=== PATIENT | female | born 1990 | race Caucasian/White ===

== ENCOUNTER → 2017-12-09 14:01 | Outpatient (CLI) | payer MEDICAID, SELFPAY ==
--- NOTE | 2017-12-09 14:20 | XR_ITS ---
XR chest 2V HISTORY: ITS.REASON: CHEST PAIN ORDERING PHYSICIAN: Naz Rdz PATIENT AGE: 27 years COMPARISON: 07/30/2010 FINDINGS: The cardiomediastinal silhouette and pulmonary vascularity are within normal limits. The lungs are clear without infiltrates, suspicious nodules, or pleural effusions. No acute bony abnormalities. IMPRESSION: Negative chest, no acute finding
[2017-12-09 14:31] LABS: Basophils % 0.3 % (0.1-2.0); Eosinophils # 0.3 K/mm3 (0.0-0.4); Hematocrit 45.6 % (37.0-47.0); Hemoglobin 16.1 g/dL (12.2-16.2); Lymphocytes # 2.3 K/mm3 (0.7-4.5); Lymphocytes % 30.7 K/mm3 (10-50); Mean Corpuscular HGB Conc 35.2 g/dL (31.8-35.4); Mean Corpuscular Hemoglobin 32.4 pg (27.0-31.2); Mean Platelet Volume 7.3 fl (7.4-10.4); Monocytes # 0.3 K/mm3 (0.1-1.0); Monocytes % 3.9 % (1.7-9.3); Neutrophils # 4.5 K/mm3 (1.8-7.8); Neutrophils % 61.1 % (37.0-80.0); Platelet Count 299 K/mm3 (142-424); Red Blood Count 4.96 M/mm3 (4.20-5.40); Red Cell Distribution Width 12.7 % (11.5-17.5); White Blood Count 7.3 K/mm3 (4.8-10.8)
[2017-12-09 14:38] LABS: Troponin I < 0.02 ng/ml (0.00-0.06)
[2017-12-09 14:46] LABS: Alanine Aminotransferase 37 U/L (12-78); Albumin Level 3.8 gm/dL (3.4-5.0); Alkaline Phosphatase 91 U/L (46-116); Anion Gap 10.1 mEq/L (5-15); Aspartate Amino Transferase 14 U/L (15-37); Bilirubin,Total 0.2 mg/dL (0.2-1.0); Blood Urea Nitrogen 13 mg/dL (7-18); Calcium 8.8 mg/dL (8.5-10.1); Carbon Dioxide 28 mmol/L (21.0-32.0); Chloride 106 mmol/L (98-107); Creatinine,Serum 0.72 mg/dL (0.55-1.02); Estimated Glomerular Filt Rate 97 ml/min (>60); Ferritin 52 ng/mL (8-388); Free T4 (Free Thyroxine) 0.72 ng/dl (0.76-1.46); GFR (African American) 118 ML/MIN (>60); Globulin 3.7 gm/dl (1.3-3.2); Glucose 109 mg/dL (74-106); Potassium 4.1 mmoL/L (3.5-5.1); Sodium 140 mmol/L (136-145); Total Protein,Serum 7.5 gm/dL (6.4-8.2)
== END ==
PROVIDERS: Physician Assistant; PCP Nurse Practitioner Family; Visit Provider Nurse Practitioner Family
DX: R07.9 Chest pain, unspecified (principal)
CPT/HCPCS: 36415; 71046; 80053; 82728; 84439; 84443; 84484; 85025

== ENCOUNTER → 2017-12-16 10:06 | Outpatient (CLI) | payer MEDICAID, SELFPAY ==
[2017-12-17 15:48] LABS: LH 13.5 mIU/mL (.)
== END ==
PROVIDERS: Visit Provider Nurse Practitioner Obstetrics & Gynecology
DX: R53.82 Chronic fatigue, unspecified (principal); Z01.419 Encounter for gynecological examination (general) (routine) without abnormal findings; E28.319 Asymptomatic premature menopause
CPT/HCPCS: 36415; 83001; 83002

== ENCOUNTER → 2018-02-10 09:33 | Outpatient (CLI) | payer MEDICAID, SELFPAY ==
--- NOTE | 2018-02-10 09:38 | FL_ITS ---
FL upper GI w air HISTORY: ITS.REASON: EPIGASTRIC PAIN, NAUSEA ORDERING PHYSICIAN: Humera Garcia PATIENT AGE: 28 years Comparison: None FINDINGS: The esophagus, stomach, and duodenum have an unremarkable appearance. There is no evidence of hiatal hernia. No ulcer or mass evident. No mucosal abnormalities apparent. There is normal peristalsis. The duodenal C-loop is nondisplaced. There was mild GE reflux FLUOROSCOPY TIME : 1 minute and 29 seconds. IMPRESSION: Minimal amount of gastroesophageal reflux otherwise negative air-contrast upper GI
== END ==
PROVIDERS: Family Provider Family Medicine; PCP Nurse Practitioner Family; Visit Provider Nurse Practitioner
DX: R10.13 Epigastric pain (principal); R11.0 Nausea
CPT/HCPCS: 74247

== ENCOUNTER → 2018-03-05 11:33 | Outpatient (CLI) | payer MEDICAID, SELFPAY ==
--- NOTE | 2018-03-05 11:37 | XR_ITS ---
EXAM: XR cervical spine 5V HISTORY: ITS.REASON: FREQUENT HEADACHES,STRESS HEADACHES ORDERING PHYSICIAN: Humera Garcia PATIENT AGE: 28 years COMPARISON: None FINDINGS: Normal alignment. No fracture or dislocation. No lytic or blastic change. No significant degenerative change. The disc spaces are preserved. No evidence of cervical rib IMPRESSION: Negative cervical spine
== END ==
PROVIDERS: PCP Nurse Practitioner; Visit Provider Nurse Practitioner
DX: R51 Headache (principal); F45.41 Pain disorder exclusively related to psychological factors
CPT/HCPCS: 72050

== ENCOUNTER → 2018-07-09 08:30 | Outpatient (CLI) | payer MEDICAID, SELFPAY ==
--- NOTE | 2018-07-09 08:31 | US_ITS ---
US transvaginal HISTORY: Endometriosis, pelvic pain ITS.REASON: US T/V- Pelvic Pain ORDERING PHYSICIAN: Isaiah Aguilera MD PATIENT AGE: 28 years Comparison: 02/27/2016 FINDINGS: Status post hysterectomy. Vaginal stump has an unremarkable appearance. No pelvic mass or abnormal fluid collection Right ovary is 2.7 x 1.8 cm and has an unremarkable appearance. The left ovary is 4.4 x 1.6 cm and contains a small 9 mm follicle. The right ovary is 3 x 1.8 x 1.9 cm and contains small follicles. No dominant cyst is evident. IMPRESSION: Prior hysterectomy. Small bilateral ovarian follicles, no dominant cyst or adnexal mass apparent
== END ==
PROVIDERS: Family Provider Family Medicine; PCP Nurse Practitioner; Visit Provider Nurse Practitioner Obstetrics & Gynecology
DX: R10.2 Pelvic and perineal pain (principal)
CPT/HCPCS: 76830

== ENCOUNTER → 2018-07-13 09:05 | Outpatient (CLI) | payer MEDICAID, SELFPAY ==
--- NOTE | 2018-07-13 09:10 | MR_ITS ---
MR head/brain wo con HISTORY: Headache and nausea, dizziness, blurred vision ITS.REASON: NAUSEA, PERSISTANT HEADACHE ORDERING PHYSICIAN: Naz Rdz PATIENT AGE: 28 years Comparison: None TECHNIQUE: Standard multiplanar multiecho sequences are performed without contrast. FINDINGS: No midline shift, mass effect, intracranial hemorrhage, or hydrocephalus. No evidence of acute infarction. The cerebellopontine angles, cerebellum, and brainstem are unremarkable. There is a partial empty sella turcica as a variant of normal. There is normal johnson-white matter differentiation with no abnormal T2 white matter hyperintensities evident. The hippocampal gyri are unremarkable in the temporal horns are symmetric. The craniocervical junction and upper cervical cord have an unremarkable appearance. No large aneurysms are evident. There is minimal mucosal thickening of the left maxillary sinus. No sinus air-fluid level or mastoid effusion evident. IMPRESSION: Negative MRI of the brain without contrast
== END ==
PROVIDERS: Family Provider Family Medicine; PCP Nurse Practitioner; Visit Provider Nurse Practitioner Family
DX: G44.52 New daily persistent headache (NDPH) (principal); R11.0 Nausea
CPT/HCPCS: 70551

== ENCOUNTER → 2018-11-10 17:48 | Outpatient (CLI) | payer MEDICAID, SELFPAY ==
[2018-11-10 17:51] LABS: Adenovirus F 40/41, stool Not Detected (NotDetected); Astrovirus Not Detected (NotDetected); Campylobacter Not Detected (NotDetected); Clostridium Difficile A/B, PCR Not Detected (NotDetected); Cryptosporidium Not Detected (NotDetected); Cyclospora Cayetanesis Not Detected (NotDetected); Entamoeba histolytica Not Detected (NotDetected); Enteroaggregative E coli Not Detected (NotDetected); Enteropathogenic E coli Not Detected (NotDetected); Enterotoxigenic E coli Not Detected (NotDetected); Giardia lamblia Not Detected (NotDetected); Norovirus Not Detected (NotDetected); Plesimonas Shigalloides, PCR Not Detected (NotDetected); Rotavirus A Not Detected (NotDetected); Salmonella, PCR Not Detected (NotDetected); Sapovirus Not Detected (NotDetected); Shiga-like toxin E coli Not Detected (NotDetected); Shigella Enterovasive E coli Not Detected (NotDetected); Vibrio Cholerae Not Detected (NotDetected); Vibrio, PCR Not Detected (NotDetected); Yersinia Entercolitica, PCR Not Detected (NotDetected)
== END ==
PROVIDERS: Visit Provider Nurse Practitioner Family
DX: R10.9 Unspecified abdominal pain (principal); R19.7 Diarrhea, unspecified
CPT/HCPCS: 87507

== ENCOUNTER → 2019-04-02 10:13 | Outpatient (CLI) | payer MEDICAID, SELFPAY ==
--- NOTE | 2019-04-02 10:21 | XR_ITS ---
EXAM: XR thoracic spine 3V HISTORY: ITS.REASON: LT SIDED THORACIC PAIN Comparison: 58 (08/22/2018 FINDINGS: Normal alignment. No fracture or dislocation. No lytic or blastic change. No significant degenerative change. The disc spaces are preserved. IMPRESSION: No acute finding
--- NOTE | 2019-04-02 10:21 | XR_ITS ---
EXAM: XR lumbar spine min 4V HISTORY: ITS.REASON: BACK PAIN ORDERING PHYSICIAN: Naz Rdz APRN PATIENT AGE: 29 years COMPARISON: CT scan abdomen and pelvis 09/10/2018 FINDINGS: There is mild straightening of normal lordotic curvature suggesting mild muscle spasm. All lumbar vertebrae appear intact and disc spaces are well maintained throughout. There is no pars defect. There are mild hypertrophic facet changes at the L5 S1 level. The SI joints appear normal. IMPRESSION: Possible mild muscle spasm, mild facet changes L5-S1 level as noted
== END ==
PROVIDERS: PCP Nurse Practitioner Family; Visit Provider Nurse Practitioner Family
DX: M54.6 Pain in thoracic spine (principal); M54.40 Lumbago with sciatica, unspecified side
CPT/HCPCS: 72072; 72110

== ENCOUNTER → 2019-05-28 13:50 | Outpatient (CLI) | payer MEDICAID, SELFPAY ==
--- NOTE | 2019-05-28 13:52 | MR_ITS ---
PROCEDURE: MR LUMBAR SPINE WO CON CLINICAL INDICATION: BACK PAIN OF LUMBAR REGION W/SCIATICA Low back pain with bilateral leg pain numbness and tingling COMPARISON: Lumbar spine films of 04/02/2019 TECHNIQUE: Standard multiplanar multiecho sequences are performed without contrast. 3-D MIP and myelographic images are also rendered and reviewed FINDINGS: There is normal alignment. The spinal cord ends at the L1 level. T12-L1, L1-L2, L2-L3, and L3-L4 have an unremarkable appearance. There is mild facet and ligamentum hypertrophy at L4-5 and L5-S1. No canal stenosis or extruded herniated disc is evident. Minimal bulging disc at L4-5. there is straightening of the lumbar lordosis which could be due to patient positioning or muscle spasm IMPRESSION: 1. Minimal bulging disc along with mild facet ligamentum hypertrophy at L4-5 with mild facet ligamentum hypertrophy at L5-S1. 2. No canal stenosis or extruded herniated disc evident. Dictated by: Epifanio Tomas MD 05/30/2019 12:31 Electronically signed by Epifanio Tomas MD in [place] 05/30/2019 12:31
== END ==
PROVIDERS: PCP Nurse Practitioner Family; Visit Provider Nurse Practitioner Family
DX: M54.40 Lumbago with sciatica, unspecified side (principal)
CPT/HCPCS: 72148; 76376

== ENCOUNTER → 2019-10-19 15:50 | Outpatient (CLI) | payer OTHER, SELFPAY ==
[2019-10-19 16:08] LABS: Basophils # 0.1 K/mm3 (0-0.2); Basophils % 0.6 % (0.1-2.0); Eosinophils # 0.2 K/mm3 (0.0-0.4); Eosinophils % 1.9 % (0.1-12.0); Hematocrit 43.1 % (37.0-47.0); Hemoglobin 14.9 g/dL (12.2-16.2); Lymphocytes # 2.2 K/mm3 (0.7-4.5); Mean Corpuscular HGB Conc 34.5 g/dL (31.8-35.4); Mean Corpuscular Hemoglobin 31.2 pg (27.0-31.2); Mean Corpuscular Volume 90.3 fl (81-99); Mean Platelet Volume 7.6 fl (7.4-10.4); Monocytes # 0.3 K/mm3 (0.1-1.0); Monocytes % 4.4 % (1.7-9.3); Neutrophils # 5.1 K/mm3 (1.8-7.8); Neutrophils % 65.2 % (37.0-80.0); Platelet Count 317 K/mm3 (142-424); Red Blood Count 4.77 M/mm3 (4.20-5.40); Red Cell Distribution Width 13.2 % (11.5-17.5); White Blood Count 7.9 K/mm3 (4.8-10.8)
--- NOTE | 2019-10-19 16:13 | ECG_ITS ---
APPROVED REPORT Exam: Resting ECG HR:68 bpm ECG Measurements Heart Rate 68 AXES OR 162 P 34 QRSd 86 QRS 57 QT 412 T 29 QTc 438 <Conclusion> Normal sinus rhythm late r wave progression - unchanged Abnormal ECG Electronically signed by : Sonido Lacy, 10/19/2019 16:40:22
[2019-10-19 17:19] LABS: Thyroid Stimulating Hormone 4.51 uIU/ml (0.358-3.740)
== END ==
PROVIDERS: PCP Family Medicine; Visit Provider Otolaryngology
DX: Z01.818 Encounter for other preprocedural examination (principal); E03.9 Hypothyroidism, unspecified; J34.2 Deviated nasal septum
CPT/HCPCS: 36415; 84439; 84443; 85025; 93005

== ENCOUNTER → 2019-10-25 11:04 | Outpatient (CLI) | payer OTHER, SELFPAY ==
--- NOTE | 2019-10-25 11:04 | US_ITS ---
PROCEDURE: US THYROID CLINICAL INDICATION: HYPOTHYROIDISM COMPARISON: No exams were available for comparison FINDINGS: Right lobe: The right lobe is 4.2 x 1.1 x 1.5 cm. No discrete nodule. Left lobe: The left lobe is 3.7 x 1 x 1.5 cm. No discrete nodule Isthmus: Unremarkable Additional findings: IMPRESSION: Unremarkable thyroid ultrasound Dictated by: Epifanio Tomas MD 10/25/2019 17:22 Electronically signed by Epifanio Tomas MD in [place] 10/25/2019 17:22
== END ==
PROVIDERS: PCP Family Medicine; Visit Provider Otolaryngology
DX: E03.9 Hypothyroidism, unspecified (principal)
CPT/HCPCS: 76536

== ENCOUNTER → 2020-02-25 14:34 | Outpatient (CLI) | payer OTHER, SELFPAY ==
--- NOTE | 2020-02-25 14:42 | XR_ITS ---
PROCEDURE: XR ANKLE RT MIN 3V CLINICAL INDICATION: RT ANKLE MASS COMPARISON: No exams were available for comparison FINDINGS: No fracture or dislocation. No lytic or blastic change. There is normal mineralization. The joint spaces are well-preserved. No significant degenerative/arthritic changes. No erosive changes evident. Other findings:No abnormal soft tissue calcification. IMPRESSION: No acute findings. MRI may provide further evaluation for possible soft tissue mass Dictated by: Epifanio Tomas MD 02/25/2020 14:57 Electronically signed by Epifanio Tomas MD in [place] 02/25/2020 14:57
== END ==
PROVIDERS: PCP Nurse Practitioner Family; Visit Provider Nurse Practitioner Family
DX: R22.41 Localized swelling, mass and lump, right lower limb (principal)
CPT/HCPCS: 73610

== ENCOUNTER → 2020-03-09 13:24 | Outpatient (CLI) | payer OTHER, SELFPAY ==
--- NOTE | 2020-03-09 13:28 | MR_ITS ---
PROCEDURE: MR ANKLE RT WO CON CLINICAL INDICATION: MASS OF RIGHT ANKLE Knot on anterior surface of ankle COMPARISON: XR ANKLE RT MIN 3V from 02/25/2020 TECHNIQUE: Routine multiplanar multi echo sequences are performed without gadolinium enhancement. FINDINGS: A marker is placed to denote the area of palpable concern.. This is placed along the anterior medial aspect of the ankle. Just deep to this region is a prominent vein with some low level increased T1 and increased T2 signal. There is also mild prominence of the subcutaneous fat at this region. No bony protuberance or bony mass or soft tissue mass is evident. No abnormal fluid collection. No ganglion cyst. There is a small amount of fluid in the talonavicular joint space and the ankle joint space nonspecific. No obvious tendinous or ligamentous abnormalities. There is a small amount of subcutaneous fluid along the lateral aspect of the ankle. The Achilles tendon flexor tendons and extensor tendons have an unremarkable appearance peroneal tendons and posterior tibialis is unremarkable. No bone marrow edema. IMPRESSION: Mild prominence of the adipose tissue just deep to the placed marker denoting the area of palpable concern. There is also a mildly prominent subcutaneous vein at this area. There is some altered signal intensity within the vein. Cannot exclude the possibility of a venous thrombosis at this region. Ultrasound with Doppler imaging may provide further evaluation to exclude underlying venous thrombosis along the dorsal medial aspect of the ankle and foot. Otherwise negative Dictated by: Epifanio Tomas MD 03/11/2020 08:00 Electronically signed by Epifanio Tomas MD in [place] 03/11/2020 08:00
== END ==
PROVIDERS: PCP Nurse Practitioner Family; Visit Provider Nurse Practitioner Family
DX: R22.41 Localized swelling, mass and lump, right lower limb (principal)
CPT/HCPCS: 73721

== ENCOUNTER → 2020-03-14 14:00 | Outpatient (CLI) | payer OTHER, SELFPAY ==
--- NOTE | 2020-03-14 14:03 | CA_ITS ---
APPROVED REPORT Right Lower Extremity Venous Study for DVT. Brazing Furnace Operator: DORON Indications Lower Extremity Swelling: Right POSSIBLE THROMBUS SEEN ANT-MED ASPECT OF RIGHT ANKLE PER MRI Vein Imaging CFV (R): compressive, spontaneous, phasic, augmentation SFJ (R): compressive, spontaneous, phasic, augmentation FEM (R): compressive, spontaneous, phasic, augmentation POP (R): compressive, spontaneous, phasic, augmentation DFV (R): compressive, spontaneous, phasic, augmentation PTV (R): Compressible GSV (R): Compressible Peroneals (R):Compressible GAS (R): Compressible Findings No evidence of DVT right lower extremity there is a superficial thrombus seen in the area of concern on MRI in a subcutaneous vein anterior medial aspect of ankle. Conclusion No evidence of DVT right lower extremity there is a superficial thrombus seen in the area of concern on MRI in a subcutaneous vein anterior medial aspect of ankle. Electronically signed by : Tremayne Fontana, 03/16/2020 09:19:48
== END ==
PROVIDERS: PCP Nurse Practitioner Family; Visit Provider Nurse Practitioner Family
DX: R93.89 Abnormal findings on diagnostic imaging of other specified body structures (principal)
CPT/HCPCS: 93971

== ENCOUNTER → 2020-05-08 15:38 | Outpatient (CLI) | payer OTHER, SELFPAY | PROVIDERS: PCP Nurse Practitioner Family; Visit Provider Nurse Practitioner Family | DX: Z20.828 Contact with and (suspected) exposure to other viral communicable diseases (principal); U07.1 COVID-19 | CPT/HCPCS: U0003 ==

== ENCOUNTER → 2020-06-19 13:39 | Outpatient (CLI) | payer OTHER, SELFPAY ==
--- NOTE | 2020-06-19 14:21 | XR_ITS ---
PROCEDURE: XR ANKLE RT MIN 3V CLINICAL INDICATION: ABN MRI COMPARISON: No exams were available for comparison FINDINGS: No fracture or dislocation. No lytic or blastic change. There is normal mineralization. The joint spaces are well-preserved. No significant degenerative/arthritic changes. No erosive changes evident. Other findings:None. IMPRESSION: No acute findings. Dictated by: Epifanio Tomas MD 06/19/2020 15:17 Epifanio Tomas MD in [place] 06/19/2020 15:18
--- NOTE | 2020-06-19 14:22 | XR_ITS ---
PROCEDURE: XR CHEST 2V CLINICAL HISTORY: HX OF ASTHMA, PREOPERATIVE COMPARISON: DX CXR2V XR chest 2V from 12/09/2017 CR CXR2V XR chest 2V from 08/22/2018 FINDINGS: The cardiomediastinal silhouette and pulmonary vascularity are within normal limits. The lungs are clear without infiltrates, suspicious nodules, or pleural effusions. No acute bony abnormalities. IMPRESSION: No acute findings. Dictated by: Epifanio Tomas MD 06/19/2020 15:16 Epifanio Tomas MD in [place] 06/19/2020 15:16
[2020-06-19 14:55] LABS: Basophils % 0.7 % (0.1-2.0); Eosinophils # 0.1 K/mm3 (0.0-0.4); Eosinophils % 2.4 % (0.1-12.0); Hematocrit 45.7 % (37.0-47.0); Hemoglobin 15.4 g/dL (12.2-16.2); Lymphocytes # 1.8 K/mm3 (0.7-4.5); Lymphocytes % 33.3 % (10-50); Mean Corpuscular HGB Conc 33.8 g/dL (31.8-35.4); Mean Corpuscular Volume 94.8 fl (81-99); Mean Platelet Volume 6.9 fl (7.4-10.4); Monocytes # 0.2 K/mm3 (0.1-1.0); Monocytes % 4.3 % (1.7-9.3); Neutrophils # 3.3 K/mm3 (1.8-7.8); Neutrophils % 59.4 % (37.0-80.0); Platelet Count 291 K/mm3 (142-424); Red Blood Count 4.82 M/mm3 (4.20-5.40); Red Cell Distribution Width 12.7 % (11.5-17.5); White Blood Count 5.5 K/mm3 (4.8-10.8)
--- NOTE | 2020-06-19 15:20 | ECG_ITS ---
APPROVED REPORT Exam: Resting ECG HR:59 bpm ECG Measurements Heart Rate 59 AXES SD 146 P 30 QRSd 84 QRS 44 QT 422 T 39 QTc 417 <Conclusion> Sinus bradycardia with sinus arrhythmia Late R-wave progression, unchanged from prior Abnormal ECG Electronically signed by : Sonido Lacy, 06/19/2020 15:37:56
[2020-06-19 15:34] LABS: Chloride 102 mmol/L (98-107)
[2020-06-19 15:35] LABS: Potassium 4.2 mmoL/L (3.5-5.1); Sodium 141 mmol/L (136-145)
[2020-06-19 15:37] LABS: Blood Urea Nitrogen 10 mg/dl (7-17); Estimated Glomerular Filt Rate 84 ml/min (>60); GFR (African American) 102 ML/MIN (>60)
[2020-06-19 15:38] LABS: Anion Gap 13.2 mEq/L (5-15); Calcium 9.9 mg/dl (8.4-10.2); Carbon Dioxide 30 mmol/L (22.0-30.0); Glucose 80 mg/dl (74-100); HCG Qualitative, Serum Negative (Negative)
[2020-06-19 16:09] LABS: Coronavirus 19 IgM Antibody Negative (Negative)
[2020-06-19 16:10] LABS: Coronavirus 19 IgG Antibody Positive (Negative)
== END ==
PROVIDERS: Podiatrist; PCP Family Medicine; Visit Provider Nurse Practitioner Family
DX: Z20.828 Contact with and (suspected) exposure to other viral communicable diseases (principal); U07.1 COVID-19; Z01.89 Encounter for other specified special examinations; R93.89 Abnormal findings on diagnostic imaging of other specified body structures; R22.41 Localized swelling, mass and lump, right lower limb; M79.89 Other specified soft tissue disorders
CPT/HCPCS: 36415; 71046; 73610; 80048; 84703; 85025; 86328; 93005

== ENCOUNTER 2020-06-21 07:34 | Day surgery (SDC) | payer OTHER, SELFPAY ==
[2020-06-20 10:33] VITALS: BMI 37.9
[2020-06-21] VITALS (14 sets, daily range): BP systolic 114–133; BP diastolic 68–79; PULSE 76–98; RESP 16–18; TEMP 36.2–43; O2SAT 92–98
--- NOTE | 2020-06-21 08:16 | HMH.ANESCL ---
[facility] Anesthesia Checklist - Patient Identification Patient Identification: Arm Band, Verbal (Name & ) - Structural Data Admitted From: Home Planned Operative Procedure/s: Right ankle excision of soft tissue mass, synovectomy Consent for Planned Operative Procedure(s) Verified: Yes Verified Documents: Surgical Consent, History and Physical - NPO Status Verified Time NPO: 20:00 - Chart Verification Results Verified: CBC, BMP, HCG - Additional verifications Patient : No Anesthesia Reactions: No Hx Blood Transfusions: Yes Blood Transfusion Reaction: No - Airway Assessment C-Spine Mobility Assessed: Yes (Missing teeth, full neck ROM, MP 3, TMD 3) TMJ Mobility Assessed: Yes Dentition: Good Dentition - Neurological Assessment Level of Consciousness: Awake, Alert, Appropriate, Follows Commands Hx Seizures: No Numbness or tingling in extremities: No - Anesthesia Plan Anesthesia Risk discussed: Yes Anesthesia Plan: Verified ASA Class: II Anesthesia Type: General w/block [facility] History I have reviewed the patient's past medical history: Yes 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: Reports:: Gastroesophageal Reflux Disease(GERD), Migraine Denies:: Cancer, Diabetes Mellitus Type 1, Diabetes Mellitus Type 2, Internal Pacemaker, MRSA, Seizures *Have you ever received a pneumonia vaccine?: No *Have you received a flu vaccine this season?: No Other 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: Reports: Hypothyroidism, Sinus Problems. Denies: Blood Transfusion Reaction Comment:: Obesity Anesthesia experience/problems:: No prior complications Laterality Cases: Bilateral: Tonsillectomy Other Surgeries: Yes: Cholecystectomy, Dilation and Curettage, Hysterectomy-Partial, Sinus Surgery, Tubal Ligation, Other (Exploratory Lap). 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
--- NOTE | 2020-06-21 10:30 | XR_ITS ---
PROCEDURE: XR ANKLE RT MIN 3V CLINICAL INDICATION: post op ankle Follow-up surgery COMPARISON: CR XR ANKLE RT MIN 3V from 02/25/2020 CR XR ANKLE RT MIN 3V from 06/19/2020 FINDINGS: Postsurgical gas present along the medial and lateral aspect of the ankle. Normal bony alignment. No fracture dislocation or metallic radiopaque foreign body. IMPRESSION: Postsurgical gas otherwise negative Dictated by: Epifanio Tomas MD 06/21/2020 14:29 Epifanio Tomas MD in [place] 06/21/2020 14:29
--- NOTE | 2020-06-21 10:52 | P.PN_ITS ---
[facility] Anesthesia Record Part I Intake, IV Amount: 700 Estimated blood loss (mL): 5 Urine output (mL): 0 Blood Pressure: 130/79 SaO2: 94 Pulse Rate: 90 Respiratory Rate: 16 Temperature: 98.5 F Patient is:: Drowsy, Stable Stable to PACU at:: 10:50
--- NOTE | 2020-06-21 10:58 | HMH.OPNOTE ---
Date of procedure: 06/21/20 Pre-op Diagnosis:: 1. Right medial ankle soft tissue mass 2. Right lateral ankle soft tissue mass 3. Right ankle synovitis Post-op Diagnosis:: Same Procedure performed:: 1. Right medial ankle soft tissue mass excision 2. Right lateral ankle soft tissue mass excision 3. Right ankle synovectomy 4. Application of amniotic graft tissue Surgeon:: Ana Paula Rosado DPM Anesthesia: GETA, regional (Right popliteal nerve block) Estimated blood loss (mL): 20 Clinical Note:: Right Ankle Soft Tissue Mass Pre-op: Conservative treatment included ice, elevation, NSAIDs, strapping, taping, modification of shoe gear, and aspiration. Conservative treatment discussed but has been exhausted. We discussed surgery. All risks and benefits were discussed including but not limited to: recurrence of the mass, damage to blood vessels and nerves, bleeding, infection, wound complications, need for further surgery, prolonged swelling of the extremity, prolonged pain, RSD/CRPS, DVT, and anesthetic complications. No guarantees were given. All questions fully answered. The patient verbalized understanding and agreed to proceed with surgery. Consent was obtained. Necessary labs and pre-op testing ordered: cbc, cmp, ekg, chest xray. Pt was given a e-Rx for [place] 7.5/325, Zofran, Motrin. She will need a fracture boot and crutches on the DOS. Discussed DVT/PE. Patient is obese and will be immobilized, otherwise is low risk. Discussed the use of aspirin 81 mg postoperatively. PCP is Naz Bahena. Operative findings:: Soft tissue mass noted to both the medial and lateral right ankle. The right ankle had an outpouching over the sinus tarsi and lateral ankle which was basically composed of subcutaneous tissue, suspect lipoma. There was some scar tissue and synovitis in the ankle joint. No obvious cartilage defects noted to the ankle. No signs of infection. Operative note:: On this date and time, the patient was deemed an appropriate surgical candidate. With informed consent signed, the patient was taken to the operating theater after a pre-op regional popliteal nerve block was given by anesthesia. The patient was positioned supine. General anesthesia was induced. Tourniquet was applied to the right thigh. The right lower extremity was prepped and draped in normal sterile fashion. RIGHT EXCISION OF ANKLE SOFT TISSUE MASS x2: The tourniquet was not inflated. Attention was directed to the lateral and medial aspect of the incision ankle where a linear incisions were mapped out. Dissection was carried through skin to subcutaneous tissue with care taken to maintain surgical hemostasis and safely retract neurovascular structures. The medial ankle arthrotomy incision was dissected, subcutaneous mass noted about 1 x 1.5 cm. It was resected in total and sent to pathology as a specimen. Attention was directed to the lateral ankle where the incision was extended from the lateral ankle gutter down over the sinus tarsi. A small soft tissue mass was noted over the extensor tendon sheath. It was sharply dissected. Attention was directed over the sinus tarsi where there is an outpouching of subcutaneous fat suspected lipoma. It was transected and the 2 lateral masses were sent together to pathology as a specimen. No deep signs of infection. Wounds were irrigated. RIGHT ANKLE SYNOVECTOMY, APPLICATION OF AMNIOTIC GRAFT TISSUE: Next dissection was carried down to the level of the joint. Synovitic tissue noted within the ankle joint. It was sharply debrided. No evidence of osteochondral defect or obvious cartilage damage noted. The ankle was flushed with copious amounts of sterile saline. A piece of amniotic tissue was cut in half and applied over the exposed extensor tendon prior to repairing the sheath. Deep tissue reapproximated with 2 and 3-0 Vicryl in a running fashion. A piece of the graft was cut and inserted to the medial and lateral ankle incisions prior to skin closure. S
--- NOTE | 2020-06-21 11:33 | SUR.PHASEI ---
1100- ice pack placed behind right knee. 1105- pain in right knee #6 (1-10) medicated per order-morphine 2mg 1125- pt continues to rate pain #6, also c/o nausea. medicated with morphine 2mg and zofran 4mg IV 1134- pt verbalized pain decreased to #2 and nausea improved
--- NOTE | 2020-06-21 12:38 | P.PN_ITS ---
[facility] Anesthesia Record Part II Discharge Time: 11:20 Destination: [facility] PACU nurse assessment reviewed?: Yes Patient Condition:: Good Anesthesia Complications:: None Swallowing reflex intact?: Yes Cyanosis?: No Blood Pressure: 122/71 Pulse Rate: 86 Temperature: 97.1 F Mental Status: Alert & Oriented Pain level:: 2 Nausea and/or vomitting:: None Intake, IV Amount: 1,000
== END 2020-06-21 12:27 | disposition home or self-care (01) ==
LOC: OR 07:35
PROVIDERS: PCP Family Medicine; Visit Provider Podiatrist
PROC: (CPT 28039; principal; 2020-06-21 09:00)
DX: D21.21 Benign neoplasm of connective and other soft tissue of right lower limb, including hip (principal); M65.871 Other synovitis and tenosynovitis, right ankle and foot; D36.7 Benign neoplasm of other specified sites; D23.71 Other benign neoplasm of skin of right lower limb, including hip
CPT/HCPCS: 28039; 28043; 27625; C5275; 73610; 96374; J2405; Q4211

== ENCOUNTER → 2020-07-06 15:01 | Outpatient (CLI) | payer OTHER, SELFPAY ==
--- NOTE | 2020-07-06 15:03 | CA_ITS ---
APPROVED REPORT Bilateral Lower Extremity Venous Study for Coffee Taster: Mulu Wing EILEEN Indications Lower Extremity Pain: Right Pain of right calf, s/p foot surgery Vein Imaging CFV (R): compressive, spontaneous, phasic, augmentation SFJ (R): compressive, spontaneous, phasic, augmentation FEM (R): compressive, spontaneous, phasic, augmentation POP (R): compressive, spontaneous, phasic, augmentation PTV (R): Compressible GSV (R): Compressible Peroneals (R):Compressible GAS (R): Compressible Findings No evidence of DVT or superficial thrombophlebitis in the veins scanned of the right lower extremity. Conclusion No evidence of DVT or superficial thrombophlebitis in the veins scanned of the right lower extremity. Electronically signed by : Epifanio Tomas MD 07/07/2020 17:04:43
== END ==
PROVIDERS: PCP Family Medicine; Visit Provider Podiatrist
DX: M79.661 Pain in right lower leg (principal); Z98.890 Other specified postprocedural states
CPT/HCPCS: 93971

== ENCOUNTER → 2020-08-01 12:51 | Outpatient (CLI) | payer OTHER, SELFPAY ==
--- NOTE | 2020-08-01 13:02 | XR_ITS ---
PROCEDURE: XR FOOT WT BEARING RT 3V CLINICAL INDICATION: pain COMPARISON: No exams were available for comparison FINDINGS: No fracture or dislocation. No lytic or blastic change. There is normal mineralization. The joint spaces are well-preserved. No significant degenerative/arthritic changes. No erosive changes evident. Other findings:Borderline pes planus IMPRESSION: Borderline pes planus otherwise negative Dictated by: Epifanio Tomas MD 08/01/2020 17:07 Epifanio Tomas MD in [place] 08/01/2020 17:07
== END ==
PROVIDERS: PCP Family Medicine; Visit Provider Podiatrist
DX: M79.671 Pain in right foot (principal)
CPT/HCPCS: 73630

== ENCOUNTER → 2020-08-07 15:45 | Outpatient (CLI) | payer OTHER, SELFPAY ==
[2020-08-07 16:11] LABS: Basophils # 0.1 K/mm3 (0-0.2); Basophils % 0.6 % (0.1-2.0); Eosinophils # 0.3 K/mm3 (0.0-0.4); Eosinophils % 3.6 % (0.1-12.0); Hematocrit 45.6 % (37.0-47.0); Hemoglobin 15.9 g/dL (12.2-16.2); Lymphocytes # 2.3 K/mm3 (0.7-4.5); Lymphocytes % 27.9 % (10-50); Mean Corpuscular HGB Conc 34.8 g/dL (31.8-35.4); Mean Corpuscular Hemoglobin 32.6 pg (27.0-31.2); Mean Corpuscular Volume 93.4 fl (81-99); Mean Platelet Volume 7.7 fl (7.4-10.4); Monocytes # 0.4 K/mm3 (0.1-1.0); Monocytes % 4.3 % (1.7-9.3); Neutrophils # 5.2 K/mm3 (1.8-7.8); Neutrophils % 63.5 % (37.0-80.0); Platelet Count 345 K/mm3 (142-424); Red Blood Count 4.88 M/mm3 (4.20-5.40); Red Cell Distribution Width 12.8 % (11.5-17.5); White Blood Count 8.1 K/mm3 (4.8-10.8)
[2020-08-07 16:55] LABS: Alanine Aminotransferase 37 U/L (12-78); Albumin Level 4.5 g/dl (3.5-5.0); Albumin/Globulin Ratio 1.6 (1.1-1.8); Alkaline Phosphatase 95 U/L (38-126); Anion Gap 14.4 mEq/L (5-15); Aspartate Amino Transferase 27 U/L (14-36); Bilirubin,Total 0.5 mg/dl (0.2-1.3); Blood Urea Nitrogen 13 mg/dl (7-17); Calcium 10.2 mg/dl (8.4-10.2); Carbon Dioxide 26 mmol/L (22.0-30.0); Chloride 104 mmol/L (98-107); Erythrocyte Sedimentation Rate 19 mm/hr (0-20); Estimated Glomerular Filt Rate 84 ml/min (>60); GFR (African American) 102 ML/MIN (>60); Globulin 2.8 g/dL (1.3-3.2); Glucose 87 mg/dl (74-100); Potassium 4.4 mmoL/L (3.5-5.1); Sodium 140 mmol/L (136-145); Total Protein,Serum 7.3 g/dl (6.3-8.2)
[2020-08-07 17:00] LABS: C-Reactive Protein 4.1 mg/L (0-4)
== END ==
PROVIDERS: Visit Provider Nurse Practitioner
DX: D17.23 Benign lipomatous neoplasm of skin and subcutaneous tissue of right leg (principal); T14.8XXA Other injury of unspecified body region, initial encounter
CPT/HCPCS: 36415; 80053; 85025; 85651; 86140

== ENCOUNTER → 2020-10-12 10:52 | Outpatient (CLI) | payer OTHER, SELFPAY ==
[2020-10-12 11:32] LABS: Basophils # 0.1 K/mm3 (0-0.2); Basophils % 0.8 % (0.1-2.0); Eosinophils # 0.2 K/mm3 (0.0-0.4); Eosinophils % 2.8 % (0.1-12.0); Hematocrit 44.9 % (37.0-47.0); Hemoglobin 16.1 g/dL (12.2-16.2); Lymphocytes # 2.3 K/mm3 (0.7-4.5); Lymphocytes % 30.5 % (10-50); Mean Corpuscular HGB Conc 35.9 g/dL (31.8-35.4); Mean Corpuscular Hemoglobin 32.7 pg (27.0-31.2); Mean Corpuscular Volume 91.2 fl (81-99); Mean Platelet Volume 7.6 fl (7.4-10.4); Monocytes # 0.4 K/mm3 (0.1-1.0); Monocytes % 5.7 % (1.7-9.3); Neutrophils # 4.6 K/mm3 (1.8-7.8); Neutrophils % 60.2 % (37.0-80.0); Platelet Count 327 K/mm3 (142-424); Red Blood Count 4.93 M/mm3 (4.20-5.40); Red Cell Distribution Width 12.8 % (11.5-17.5); White Blood Count 7.6 K/mm3 (4.8-10.8)
[2020-10-12 12:06] LABS: Free Thyroxine Index 2.9 ug/dL (5.93-13.13); Triiodothryronine (T3) Uptake 32 % (23.5-40.5)
[2020-10-12 12:19] LABS: Thyroid Stimulating Hormone 2.87 uIU/mL (0.465-4.68)
== END ==
PROVIDERS: Visit Provider Nurse Practitioner Obstetrics & Gynecology
DX: Z01.419 Encounter for gynecological examination (general) (routine) without abnormal findings (principal); E03.9 Hypothyroidism, unspecified
CPT/HCPCS: 36415; 84436; 84443; 84479; 85025

== ENCOUNTER → 2020-10-17 11:42 | Outpatient (CLI) | payer OTHER, SELFPAY ==
[2020-10-17 13:00] LABS: Basophils # 0.1 K/mm3 (0-0.2); Basophils % 0.7 % (0.1-2.0); Eosinophils # 0.2 K/mm3 (0.0-0.4); Eosinophils % 2.7 % (0.1-12.0); Hematocrit 46.4 % (37.0-47.0); Hemoglobin 16.2 g/dL (12.2-16.2); Lymphocytes # 2.2 K/mm3 (0.7-4.5); Lymphocytes % 30.4 % (10-50); Mean Corpuscular Volume 91.4 fl (81-99); Mean Platelet Volume 7.5 fl (7.4-10.4); Monocytes # 0.3 K/mm3 (0.1-1.0); Monocytes % 4.6 % (1.7-9.3); Neutrophils # 4.4 K/mm3 (1.8-7.8); Neutrophils % 61.6 % (37.0-80.0); Platelet Count 329 K/mm3 (142-424); Red Blood Count 5.08 M/mm3 (4.20-5.40); Red Cell Distribution Width 13.2 % (11.5-17.5); White Blood Count 7.2 K/mm3 (4.8-10.8)
[2020-10-17 13:39] LABS: Chloride 102 mmol/L (98-107); Sodium 140 mmol/L (136-145)
[2020-10-17 13:41] LABS: Blood Urea Nitrogen 18 mg/dl (7-17); Estimated Glomerular Filt Rate 74 ml/min (>60); GFR (African American) 89 ML/MIN (>60)
[2020-10-17 13:42] LABS: Alanine Aminotransferase 50 U/L (12-78); Albumin Level 4.9 g/dl (3.5-5.0); Albumin/Globulin Ratio 1.5 (1.1-1.8); Alkaline Phosphatase 91 U/L (38-126); Aspartate Amino Transferase 37 U/L (14-36); Bilirubin,Total 0.6 mg/dl (0.2-1.3); Calcium 10.4 mg/dl (8.4-10.2); Carbon Dioxide 28 mmol/L (22.0-30.0); Cholesterol 227 mg/dl (140-200); Globulin 3.2 g/dL (1.3-3.2); Glucose 85 mg/dl (74-100); Magnesium 1.9 mg/dl (1.6-2.3); Total Protein,Serum 8.1 g/dl (6.3-8.2); Triglycerides 187 mg/dl (30-150); VLDL Cholesterol 37 mg/dL (0-40)
[2020-10-17 13:43] LABS: Chol/HDL Ratio 4.4 (1-3.5); HDL Cholesterol 52 mg/dl (40-60)
[2020-10-17 13:54] LABS: Direct LDL Cholesterol 137.29 mg/dL (100-129)
== END ==
PROVIDERS: PCP Nurse Practitioner Family; Visit Provider Nurse Practitioner Family
DX: R00.2 Palpitations (principal)
CPT/HCPCS: 36415; 80053; 80061; 83735; 85025; 93225; 93226

== ENCOUNTER → 2020-10-17 12:03 | Outpatient (CLI) | payer OTHER, SELFPAY | PROVIDERS: Visit Provider Nurse Practitioner Family | DX: R00.2 Palpitations (principal) | CPT/HCPCS: 36415; 80053; 80061; 83735; 85025 ==

== ENCOUNTER → 2021-02-15 13:39 | Outpatient (CLI) | payer OTHER, SELFPAY ==
--- NOTE | 2021-02-15 13:46 | XR_ITS ---
PROCEDURE: XR FOOT RT MIN 3V CLINICAL INDICATION: RT FOOT PAIN COMPARISON: CR XR FOOT WT BEARING RT 3V from 08/01/2020 FINDINGS: No fracture or dislocation. No lytic or blastic change. There is normal mineralization. The joint spaces are well-preserved. No significant degenerative/arthritic changes. No erosive changes evident. Other findings:None. IMPRESSION: No acute findings. Dictated by: Epifanio Tomas MD 02/15/2021 15:44 Epifanio Tomas MD in [place] 02/15/2021 15:44
== END ==
PROVIDERS: PCP Nurse Practitioner Family; Visit Provider Nurse Practitioner Family
DX: M79.671 Pain in right foot (principal)
CPT/HCPCS: 73630

== ENCOUNTER → 2021-10-08 12:01 | Outpatient (CLI) | payer OTHER, SELFPAY | PROVIDERS: Visit Provider Nurse Practitioner | DX: U07.1 COVID-19 (principal) | CPT/HCPCS: C9803; U0003; U0005 ==

== ENCOUNTER 2022-12-08 11:40 | Emergency (ER) | payer OTHER, SELFPAY ==
[2022-12-08 12:10] VITALS: BP 132/85; PULSE 93; RESP 18; TEMP 37.1; O2SAT 96; BMI 39.8
[2022-12-08 12:30] VITALS: BP 132/85; PULSE 93; RESP 18; TEMP 37.1; O2SAT 96
--- NOTE | 2022-12-08 12:40 | EXP.UTC ---
Discharge Plan Disposition Patient Disposition: Home, Self-Care Condition: Good Prescriptions Prescriptions: New azithromycin [azithromycin] 250 mg tablet 250 mg PO DIRECTED Qty: 6 0RF Rx Instructions: Take two (2) tablets on day #1, then one (1) tablet day #2 thru #5 fluticasone propionate [fluticasone propionate] 50 mcg/actuation spray,suspension 1 spray intranasal DAILY Qty: 9.9 0RF Referrals Follow up/Referrals: Naz Rdz APRN [Primary Care Provider] - See instructions Activity Restrictions/Add. Instructions Additional Instructions/Restrictions: Start antibiotic patient to take as ordered for a full length of time even if you feel better. Sinus infections do not get better overnight. It may take 2-3 days to notice much improvement so be sure to use conservative measures as discussed for symptoms. Flonase 1 spray each nostril daily to help with nasal congestion, sinus and ear pressure/information Increase fluids Humidifier/vaporizer as needed Tylenol and ibuprofen as needed for fever or pain. If symptoms do not improve or get worse return or be seen in the ER Follow-up with primary care this week Clinical Impressions Clinical Impression: Sinusitis Instructions Patient Instructions: DI for Sinusitis Discharge ED Provider: Judit ([facility] [facility] [place] General Stated complaint: Headache, congestion, vomiting, diarrhea Mode of Arrival: Ambulatory Source of Information: Patient Limitations: No Limitations Time Seen by Provider: 12/08/22 12:40 Description of Symptoms (Recalled from Triage Doc. by RN): PATIENT C/O HEADACHE, CONGESTION, VOMITING, DIARRHEA, AND BILATERAL EAR ACHE SINCE FRIDAY HEENT Symptoms (Recalled from RN notes): Yes Resp Symptoms (Recalled from RN notes): No Skin Symptoms (Recalled from RN notes): No MS Symptoms (Recalled from RN notes): No Functional Status (Recalled from RN notes): WNL History of Present Illness Provider Complaint: 32 yr old female presents for sore throat,garza,yellow/green nasal drainage,jason ear pain, nausea and vomiting for 2 days. pt states sinus issues have been going on for over a week Related Data Previous Rx's Medication Instructions Recorded azithromycin 250 mg tablet 250 mg PO DIRECTED #6 tabs 12/08/22 fluticasone propionate 50 1 spray intranasal DAILY #9.9 mL 12/08/22 mcg/actuation nasal spray,suspension Allergies Allergy/AdvReac Type Severity Reaction Status Date / Time sulfamethoxazole Allergy Mild Rash Verified 11/12/21 14:20 [From Bactrim] trimethoprim [From Bactrim] Allergy Mild Rash Verified 11/12/21 14:20 Worker's Comp Is this a Worker's Comp case?: No [facility] Disclaimer: The information contained in this section may have been updated after the patient was seen, as this information can be updated by other users. Social History , [employer]) Smoking Status: Never smoker alcohol intake: never substance use type: denies use current occupational status: unemployed Travel in the last 8 weeks: None household members: spouse and family housing: house current occupational exposures/hazards: No caffeine: Yes ROS Obtained: Yes All systems reviewed & no additional complaints except as documented Constitutional Constitutional: Reports system reviewed and no additional complaints, except as documented, Reports as per HPI and Reports headache(s) Eyes Eyes: Reports system reviewed and no additional complaints, except as documented ENT Ears, Nose, Mouth, and Throat: Reports system reviewed and no additional complaints, except as documented, Reports as per HPI, Reports headache(s), Reports nasal congestion, Reports nasal discharge, Reports post nasal drip, Reports sinus pain, Reports sinus pressure and Reports sore throat Cardiovascular Cardiovascular: Reports system reviewed and no additional complaints, except as documented Respiratory Respiratory: Re
[2022-12-08 12:41] LABS: UTC Strep Screen (Rapid) Negative (Negative)
== END 2022-12-08 13:11 | disposition home or self-care (01) ==
PROVIDERS: Emergency Provider Nurse Practitioner Family; PCP Nurse Practitioner Family
DX: J01.90 Acute sinusitis, unspecified (principal); R11.2 Nausea with vomiting, unspecified; R19.7 Diarrhea, unspecified; R07.0 Pain in throat
CPT/HCPCS: 87880; 99212; 99214; G0463

== ENCOUNTER 2023-02-04 17:28 | Emergency (ER) | payer OTHER, SELFPAY ==
[2023-02-04 17:31] VITALS: BP 125/75; PULSE 71; RESP 14; TEMP 36.6; O2SAT 97; BMI 38.0
--- NOTE | 2023-02-04 17:57 | EXP.UTC ---
Discharge Plan Disposition Patient Disposition: Home, Self-Care Condition: Good Prescriptions Prescriptions: New cephalexin 500 mg capsule 500 mg PO QID Qty: 40 0RF methylprednisolone 4 mg Tablets,Dose Pack 4 mg PO DIRECTED Qty: 21 0RF No Action azithromycin [azithromycin] 250 mg tablet 250 mg PO DIRECTED Qty: 6 0RF Rx Instructions: Take two (2) tablets on day #1, then one (1) tablet day #2 thru #5 fluticasone propionate [fluticasone propionate] 50 mcg/actuation spray,suspension 1 spray intranasal DAILY Qty: 9.9 0RF Referrals Follow up/Referrals: Naz Rdz APRN [Primary Care Provider] - See instructions Activity Restrictions/Add. Instructions Additional Instructions/Restrictions: Rest the extremity, Elevate the extremity as tolerated while you are resting. Watch the hand for signs of infection, such as redness, swelling, drainage, fever. etc. Follow up with your regular doctor. GO TO THE ER FOR ANY WORSENING SYMPTOMS OR CONCERNS Clinical Impressions Clinical Impression: Infected insect bite, Cellulitis Instructions Patient Instructions: Insect Bites and Stings Discharge ED Provider: Solis Flores [facility] General Stated complaint: poss insect bite LT hand Mode of Arrival: Ambulatory Source of Information: Patient Limitations: No Limitations Time Seen by Provider: 02/04/23 17:56 HEENT Symptoms (Recalled from RN notes): No Resp Symptoms (Recalled from RN notes): No Skin Symptoms (Recalled from RN notes): Yes MS Symptoms (Recalled from RN notes): No Functional Status (Recalled from RN notes): wnl History of Present Illness Provider Complaint: pt presents with edema at her L MCP joing on her index finger radiating to the back of her hand. pts hand is red, warm and painful. pt states she thinks she was bitten or stung by something friday. Related Data Previous Rx's Medication Instructions Recorded azithromycin 250 mg tablet 250 mg PO DIRECTED #6 tabs 12/08/22 fluticasone propionate 50 1 spray intranasal DAILY #9.9 mL 12/08/22 mcg/actuation nasal spray,suspension cephalexin 500 mg capsule 500 mg PO QID #40 caps 02/04/23 methylprednisolone 4 mg tablets in 4 mg PO DIRECTED #21 tabs 02/04/23 a dose pack Allergies Allergy/AdvReac Type Severity Reaction Status Date / Time sulfamethoxazole Allergy Mild Rash Verified 02/04/23 17:44 [From Bactrim] trimethoprim [From Bactrim] Allergy Mild Rash Verified 02/04/23 17:44 Worker's Comp Is this a Worker's Comp case?: No [facility] Disclaimer: The information contained in this section may have been updated after the patient was seen, as this information can be updated by other users. Social History Smoking Status: Never smoker alcohol intake: never substance use type: denies use current occupational status: unemployed Travel in the last 8 weeks: None household members: spouse and family housing: house current occupational exposures/hazards: No caffeine: Yes ROS Obtained: Yes All systems reviewed & no additional complaints except as documented Constitutional Constitutional: Denies chills and Denies fever(s) Eyes Eyes: Denies eye discharge ENT Ears, Nose, Mouth, and Throat: Denies dizziness, Denies otalgia and Denies sore throat Cardiovascular Cardiovascular: Denies chest pain Respiratory Respiratory: Denies shortness of breath, Denies chest congestion, Denies cough, Denies stridor and Denies wheezing Gastrointestinal Gastrointestingal: Denies nausea or vomiting Musculoskeletal Musculoskeletal: Reports system reviewed and no additional complaints, except as documented and Denies arthralgias Integumentary/Breasts Skin/Breast: Reports as per HPI Neurologic Neurologic: Denies dizziness and Denies paresthesias Allergic/Immunologic Allergic/Immunologic: Denies wheezing Physical Exam General General appearance: alert a
[2023-02-04 18:53] VITALS: BP 125/75; PULSE 71; RESP 14; TEMP 36.6
== END 2023-02-04 18:53 | disposition home or self-care (01) ==
PROVIDERS: Emergency Provider Nurse Practitioner Family; PCP Nurse Practitioner Family
DX: L03.114 Cellulitis of left upper limb (principal); S60.562A Insect bite (nonvenomous) of left hand, initial encounter; W57.XXXA Bitten or stung by nonvenomous insect and other nonvenomous arthropods, initial encounter
CPT/HCPCS: 99212; 99214; G0463

== ENCOUNTER 2023-06-03 12:44 | Emergency (ER) | payer OTHER, SELFPAY ==
[2023-06-03 13:15] VITALS: BP 120/76; PULSE 71; RESP 19; TEMP 36.7; O2SAT 99; BMI 37.0
--- NOTE | 2023-06-03 13:48 | EXP.UTC ---
Discharge Plan Disposition Patient Disposition: Home, Self-Care Condition: Good Prescriptions Prescriptions: New ondansetron HCl 4 mg tablet 4 mg PO Q8H 4 Days Qty: 12 0RF No Action cephalexin 500 mg capsule 500 mg PO QID Qty: 40 0RF methylprednisolone 4 mg Tablets,Dose Pack 4 mg PO DIRECTED Qty: 21 0RF levothyroxine 50 mcg tablet 50 mcg PO DAILY azithromycin [azithromycin] 250 mg tablet 250 mg PO DIRECTED Qty: 6 0RF Rx Instructions: Take two (2) tablets on day #1, then one (1) tablet day #2 thru #5 fluticasone propionate [fluticasone propionate] 50 mcg/actuation spray,suspension 1 spray intranasal DAILY Qty: 9.9 0RF Referrals Follow up/Referrals: Naz Rdz APRN [Primary Care Provider] - See instructions Activity Restrictions/Add. Instructions Additional Instructions/Restrictions: Drink extra fluids with and between meals. If you have difficulty drinking, try very small amounts of water or suck on ice chips. ? Avoid fruit juices, as these do not replace minerals and can actually increase diarrhea. ? Children and adults can use sports drinks to replenish electrolytes. Younger children and infants should use products formulated for children, like oral rehydration solutions. ? Eat food in small amounts and let your stomach recover. ? Get lots of rest. You may feel tired or weak. ? No greasy or fried foods for the next 24-48 hours BRAT diet Bananas Rice Apples and [place] ? Make sure to drink plenty of liquids ? Return if needed ? Straight to ER if any life threatening symptoms ? Zofran as prescribed ? Follow up with family doctor in the next 48-72 hours if no improvement or any worsening of symptoms Clinical Impressions Clinical Impression: Viral syndrome Stand Alone Forms Stand Alone Forms: Work/School Release Instructions Patient Instructions: Nausea and Vomiting-Adult, Diarrhea Discharge ED Provider: Vandana Clements [facility] [place] General Stated complaint: Bad Headache, Vomitting , Almaz. Mode of Arrival: Ambulatory Source of Information: Patient Limitations: No Limitations Time Seen by Provider: 06/03/23 13:48 Description of Symptoms (Recalled from Triage Doc. by RN): PATIENT C/O HEADACHE, NAUSEA, VOMITING AND DIARRHEA X 2 DAYS HEENT Symptoms (Recalled from RN notes): Yes Resp Symptoms (Recalled from RN notes): No Skin Symptoms (Recalled from RN notes): No MS Symptoms (Recalled from RN notes): No Functional Status (Recalled from RN notes): WNL History of Present Illness Provider Complaint: Patient states that she has been feeling achy, headache N/V/D for the the last couple of days States that she was around someone that tested positive for COVID not sure if she may have it or not States that last vomited yesterday and last diarrhea last night Related Data Home Medications Medication Instructions Recorded Confirmed levothyroxine 50 mcg tablet 50 mcg PO DAILY Supplement 06/03/23 06/03/23 Previous Rx's Medication Instructions Recorded azithromycin 250 mg tablet 250 mg PO DIRECTED #6 tabs 12/08/22 fluticasone propionate 50 1 spray intranasal DAILY #9.9 mL 12/08/22 mcg/actuation nasal spray,suspension cephalexin 500 mg capsule 500 mg PO QID #40 caps 02/04/23 methylprednisolone 4 mg tablets in 4 mg PO DIRECTED #21 tabs 02/04/23 a dose pack ondansetron HCl 4 mg tablet 4 mg PO Q8H 4 days #12 tabs 06/03/23 Allergies Allergy/AdvReac Type Severity Reaction Status Date / Time sulfamethoxazole Allergy Mild Rash Verified 02/04/23 17:44 [From Bactrim] trimethoprim [From Bactrim] Allergy Mild Rash Verified 02/04/23 17:44 Worker's Comp Is this a Worker's Comp case?: No PFS PFS Disclaimer: The information contained in this section may have been updated after the patient was seen, as this information can be updated by other users. Jo-Ann
[2023-06-03 14:00] VITALS: BP 120/76; PULSE 71; RESP 19; TEMP 36.7; O2SAT 99
== END 2023-06-03 14:04 | disposition home or self-care (01) ==
PROVIDERS: Emergency Provider Nurse Practitioner; PCP Nurse Practitioner Family
DX: R11.2 Nausea with vomiting, unspecified (principal); R51.9 Headache, unspecified; Z20.822 Contact with and (suspected) exposure to COVID-19
CPT/HCPCS: 87635; 99212; 99214; G0463

== ENCOUNTER 2023-08-03 14:35 | Emergency (ER) | payer OTHER, SELFPAY ==
[2023-08-03 14:55] VITALS: BP 131/78; PULSE 103; RESP 19; TEMP 37.3; O2SAT 98; BMI 37.0
[2023-08-03 15:09] LABS: UTC Influenza A Antigen Negative (Negative); UTC Influenza B Antigen Negative (Negative)
--- NOTE | 2023-08-03 15:27 | EXP.UTC ---
Discharge Plan Disposition Patient Disposition: Home, Self-Care Condition: Good Prescriptions Prescriptions: No Action levothyroxine 50 mcg tablet 50 mcg PO DAILY Referrals Follow up/Referrals: Naz Rdz APRN [Primary Care Provider] - See instructions Activity Restrictions/Add. Instructions Additional Instructions/Restrictions: *Monitor Temp, Over the counter Motrin or Tylenol as directed/as needed Tylenol every 4 hours and Motrin every 6 hours (as long as your family doctor has told you that you can take it) for fever or pain. and straight to ER if unable to lower temp less than 101.0 after medication given *Warm salt water gargles may help to soothe the throat *Throat Lozenges? *Warm fluids like tea with honey may help to soothe the throat? *Sleep elevated *Humidifier/Vaporizer Over the counter cough and cold medication may help with symptoms Follow up IMMEDIATELY for new or worsening symptoms or no Noticeable improvement over the next 48-72 hours. 911 for difficulty breathing or swallowing You were tested for today for ?Upper Respiratory Panel with COVID19 your test result should be back in the next 24 hours You may check your results on the [facility] [employer] [facility] if your COVID test is positive you must Quarantine for 5 days Clinical Impressions Clinical Impression: Viral syndrome Stand Alone Forms Stand Alone Forms: Work/School Release Instructions Patient Instructions: DI for Viral Syndrome, DI for Fever (Symptom) -- Adult Discharge ED Provider: Vandana Clements [facility] [place] General Stated complaint: body aches,cough,headache,stomach pain Mode of Arrival: Ambulatory Source of Information: Patient Limitations: No Limitations Time Seen by Provider: 08/03/23 15:27 Description of Symptoms (Recalled from Triage Doc. 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 States that there has been alot going around there and yesterday she started feeling bad States that she has been having sore throat, body aches, chills, headache upset stomach and a little diarrhea States that today she was still not feeling any better so she came in Related Data Home Medications Medication Instructions Recorded Confirmed levothyroxine 50 mcg tablet 50 mcg PO DAILY Supplement 06/03/23 08/03/23 Allergies Allergy/AdvReac Type Severity Reaction Status Date / Time sulfamethoxazole Allergy Mild Rash Verified 02/04/23 17:44 [From Bactrim] trimethoprim [From Bactrim] Allergy Mild Rash Verified 02/04/23 17:44 Worker's Comp Is this a Worker's Comp case?: No [facility] Disclaimer: The information contained in this section may have been updated after the patient was seen, as this information can be updated by other users. 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 (Updated 08/03/23 @ 15:36 by Vandana Clements APRN) Anxiety Depression Migraine Thyroid disease Surgical History (Updated 08/03/23 @ 15:08 by Linda Gonzalez RN) History of cholecystectomy History of hysterectomy History of tubal ligation Social History Smoking Status: Never smoker alcohol intake: never substance use type: denies use current occupational status: unemployed Travel in the last 8 weeks: None household members: spouse and family housing: house current occupational exposures/hazards: No caffeine: Yes ROS Obtained: Yes All systems reviewed & no additional complaints except as documented and Yes Systems reviewed as appropriate & no additional complaints except as documented Constitutional Constituti
[2023-08-03 15:40] VITALS: BP 131/78; PULSE 103; RESP 19; TEMP 37.3; O2SAT 98
[2023-08-03 15:56] LABS: Adenovirus,PCR Not Detected (NotDetected); Coronavirus 19, PCR Not Detected (NotDetected); Coronavirus 229E Not Detected (NotDetected); Coronavirus NL63 Not Detected (NotDetected); Coronavirus OC43 Not Detected (NotDetected); Coronovirus HKU1,PCR Not Detected (NotDetected); Human Metapneumovirus Not Detected (NotDetected); Influenza A, PCR Not Detected (NotDetected); Influenza AH1, 2009 Not Detected (NotDetected); Influenza AH1, PCR Not Detected (NotDetected); Influenza AH3,PCR Not Detected (NotDetected); Influenza B, PCR Not Detected (NotDetected); Parainfluenza 1, PCR Not Detected (NotDetected); Parainfluenza 2, PCR Not Detected (NotDetected); Parainfluenza 3, PCR Not Detected (NotDetected); Parainfluenza 4, PCR Not Detected (NotDetected); Respiratory Syncytial Virus Not Detected (NotDetected); Rhinovirus/Enterovirus Not Detected (NotDetected)
== END 2023-08-03 15:48 | disposition home or self-care (01) ==
PROVIDERS: Emergency Provider Nurse Practitioner; PCP Nurse Practitioner Family
DX: R51.9 Headache, unspecified (principal); R10.9 Unspecified abdominal pain; R11.0 Nausea; R19.7 Diarrhea, unspecified; R07.0 Pain in throat; R05.9 Cough, unspecified; R50.9 Fever, unspecified; B34.9 Viral infection, unspecified
CPT/HCPCS: 87632; 87635; 87804; 99212; 99214; G0463

== ENCOUNTER 2023-08-31 14:16 | Emergency (ER) | payer OTHER, SELFPAY ==
[2023-08-31 14:50] VITALS: BP 117/76; PULSE 91; RESP 18; TEMP 36.9; O2SAT 99; BMI 38.7
--- NOTE | 2023-08-31 15:15 | EXP.UTC ---
Discharge Plan Disposition Patient Disposition: Home, Self-Care Condition: Good Prescriptions Prescriptions: New amoxicillin-pot clavulanate 875-125 mg Tablet 1 tab PO Q12H 7 Days Qty: 14 0RF fluticasone propionate [Flonase Allergy Relief] 50 mcg/actuation spray,suspension 2 spray intranasal DAILY Qty: 16 0RF Rx Instructions: administer into each nostril daily methylprednisolone [Medrol (Thomas)] 4 mg tablets,dose pack See Rx Instructions .Route .COMPLEX 6 Days Qty: 21 0RF Rx Instructions: taper pack; No Action levothyroxine 50 mcg tablet 50 mcg PO DAILY Referrals Follow up/Referrals: Naz Rdz APRN [Primary Care Provider] - See instructions Activity Restrictions/Add. Instructions Additional Instructions/Restrictions: *Monitor Temp, Over the counter Motrin or Tylenol as directed/as needed Tylenol every 4 hours and Motrin every 6 hours (as long as your family doctor has told you that you can take it) for fever or pain. and straight to ER if unable to lower temp less than 101.0 after medication given *Warm salt water gargles may help to soothe the throat *Throat Lozenges? *Warm fluids like tea with honey may help to soothe the throat? *Sleep elevated *Humidifier/Vaporizer *Flonase 2 sprays in each nostril daily but be aware that it may take 2-3 days before you notice improvement Follow up IMMEDIATELY for new or worsening symptoms or no Noticeable improvement over the next 48-72 hours. 911 for difficulty breathing or swallowing Clinical Impressions Clinical Impression: Sinusitis Qualifiers: Sinusitis location: unspecified location Chronicity: unspecified Qualified Code(s): J32.9 - Chronic sinusitis, unspecified Instructions Patient Instructions: DI for Sinusitis, DI for Ear Pain-Adult Discharge ED Provider: Vandana Clements [facility] General Stated complaint: right ear pain Mode of Arrival: Ambulatory Source of Information: Patient Limitations: No Limitations Time Seen by Provider: 08/31/23 15:15 Description of Symptoms (Recalled from Triage Doc. by RN): PATIENT C/O RIGHT EAR PAIN PAIN X 3 DAYS HEENT Symptoms (Recalled from RN notes): Yes Resp Symptoms (Recalled from RN notes): No Skin Symptoms (Recalled from RN notes): No MS Symptoms (Recalled from RN notes): No Functional Status (Recalled from RN notes): WNL History of Present Illness Provider Complaint: Patient states that she has been having some sinus pain and pressure for about a week and for the last couple of days she has been pain and pressure in her right ear and popping and cracking so today when it was still hurting she came in to get it checked Related Data Home Medications Medication Instructions Recorded Confirmed levothyroxine 50 mcg tablet 50 mcg PO DAILY Supplement 06/03/23 08/31/23 Previous Rx's Medication Instructions Recorded amoxicillin 875 mg-potassium 1 tab PO Q12H 7 days #14 tabs 08/31/23 clavulanate 125 mg tablet fluticasone propionate 50 2 spray intranasal DAILY #16 grams 08/31/23 mcg/actuation nasal spray,suspension (Flonase Allergy Relief) methylprednisolone 4 mg tablets in See Rx Instructions .Route 08/31/23 a dose pack (Medrol (Thomas)) .COMPLEX 6 days #21 tabs Allergies Allergy/AdvReac Type Severity Reaction Status Date / Time sulfamethoxazole Allergy Mild Rash Verified 02/04/23 17:44 [From Bactrim] trimethoprim [From Bactrim] Allergy Mild Rash Verified 02/04/23 17:44 Worker's Comp Is this a Worker's Comp case?: No [facility] Disclaimer: The information contained in this section may have been updated after the patient was seen, as this information can be updated by other users. 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 (Updated 08/31/23 @ 15:23 by Vandana Clements APRN) Anxiety Depression Migraine Thyroid disease Surgical History (Updated 08/03/23 @ 15:08 by Linda Gonzalez RN) History of cholecystectomy History of hysterecto
[2023-08-31 15:20] VITALS: BP 117/76; PULSE 91; RESP 18; TEMP 36.9; O2SAT 99
== END 2023-08-31 15:24 | disposition home or self-care (01) ==
PROVIDERS: Emergency Provider Nurse Practitioner; PCP Nurse Practitioner Family
DX: J01.90 Acute sinusitis, unspecified (principal); H92.01 Otalgia, right ear; E03.9 Hypothyroidism, unspecified
CPT/HCPCS: 99212; 99214; G0463

== ENCOUNTER 2023-10-11 15:29 | Emergency (ER) | payer OTHER, SELFPAY ==
[2023-10-11 15:40] VITALS: BP 119/78; PULSE 106; RESP 21; TEMP 36.7; O2SAT 96; BMI 39.4
--- NOTE | 2023-10-11 15:49 | ED_ITS ---
Discharge Plan Disposition Patient Disposition: Home, Self-Care Condition: Good Prescriptions Prescriptions: New methylprednisolone [Medrol (Thomas)] 4 mg tablets,dose pack See Rx Instructions .Route .COMPLEX 6 Days Qty: 21 0RF Rx Instructions: taper pack; doxycycline hyclate 100 mg capsule 100 mg PO BID Qty: 20 0RF No Action levothyroxine 50 mcg tablet 50 mcg PO DAILY Referrals Follow up/Referrals: Naz Rdz APRN [Primary Care Provider] - See instructions Activity Restrictions/Add. Instructions Additional Instructions/Restrictions: Monitor Temp, Over the counter Motrin or Tylenol as directed/as needed Tylenol every 4 hours and Motrin every 6 hours (as long as your family doctor has told you that you can take it) for fever or pain. and straight to ER if unable to lower temp less than 101.0 after medication given *Warm salt water gargles may help to soothe the throat *Throat Lozenges? *Warm fluids like tea with honey may help to soothe the throat? *Sleep elevated *Humidifier/Vaporizer Take medication as prescribed Follow up IMMEDIATELY for new or worsening symptoms or no Noticeable improvement over the next 48-72 hours. 911 for difficulty breathing or swallowing Clinical Impressions Clinical Impression: Sinusitis Qualifiers: Sinusitis location: unspecified location Chronicity: unspecified Qualified Code(s): J32.9 - Chronic sinusitis, unspecified Instructions Patient Instructions: DI for Sinusitis, Sinusitis Discharge ED Provider: Vandana Clements [facility] General Stated complaint: [place],Fever,Congestion,nausea,cough,earache Mode of Arrival: Ambulatory Source of Information: Patient Limitations: No Limitations Time Seen by Provider: 10/11/23 15:49 Description of Symptoms (Recalled from Triage Doc. by RN): PATIENT C/O HEADACHE, CONGESTION, NAUSEA, COUGH, EAR PAIN AND DIZZINESS THAT STARTED TODAY. SHE REPORTS HAVING COVID APPROX 2 WEEKS AGO HEENT Symptoms (Recalled from RN notes): Yes Resp Symptoms (Recalled from RN notes): Yes Skin Symptoms (Recalled from RN notes): No MS Symptoms (Recalled from RN notes): No Functional Status (Recalled from RN notes): WNL History of Present Illness Provider Complaint: Patient states that she had COVID a few weeks ago and has been doing better States that she had continued to have pain in her right ear and sinus pain and pressure that got worse since yesterday and now having body aches, headache and chills States that today she was still feeling bad so she came in to get checked Related Data Home Medications Medication Instructions Recorded Confirmed levothyroxine 50 mcg tablet 50 mcg PO DAILY Supplement 06/03/23 10/11/23 Previous Rx's Medication Instructions Recorded doxycycline hyclate 100 mg capsule 100 mg PO BID #20 caps 10/11/23 methylprednisolone 4 mg tablets in See Rx Instructions .Route 10/11/23 a dose pack (Medrol (Thomas)) .COMPLEX 6 days #21 tabs Allergies Allergy/AdvReac Type Severity Reaction Status Date / Time sulfamethoxazole Allergy Mild Rash Verified 02/04/23 17:44 [From Bactrim] trimethoprim [From Bactrim] Allergy Mild Rash Verified 02/04/23 17:44 Worker's Comp Is this a Worker's Comp case?: No [facility] Disclaimer: The information contained in this section may have been updated after the patient was seen, as this information can be updated by other users. 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 (Updated 10/11/23 @ 16:11 by Vandana Clements APRN) Anxiety Depression Migraine Thyroid disease Surgical History (Updated 08/03/23 @ 15:08 by Linad Gonzalez RN) History of cholecystectomy History of hysterectomy History of tubal ligation Social History Smoking Status: Never smoker alcohol intake: never substance use type: denies use current occupational status: unemployed Travel in the last 8 weeks: None household members: spouse and family housing: house current occupational exposures/hazards: No caffeine: Yes ROS Obtained: Yes All systems reviewed & no additional complaints except as documented and Yes Systems reviewed as appropriate & no additional complaints except as documented Constitutional Constitutional: Reports system reviewed and no additional complaints, except as documented and Reports as per HPI ENT Ears, Nose, Mouth, and Throat: Reports system reviewed and no additional complaints, except as documented, Reports as per HPI, Reports otalgia, Reports sinus pain and Reports sinus pressure Cardiovascular Cardiovascular: Reports system reviewed and no additional complaints, except as documented and Reports as per HPI Respiratory Respiratory: Reports system reviewed and no additional complaints, except as documented and Reports as per HPI Physical Exam General General appearance: alert and in no apparent distress ENT ENT exam: Present mucous membranes moist Expanded ENT Exam TM/Canal exam: Bilateral TM: bulging (clear fluid noted no redness) Nose exam: Present sinus tenderness Respiratory Respiratory exam: Present normal lung sounds bilaterally; Absent respiratory distress or wheezes Cardiovascular Cardiovascular exam: Present regular rate, normal rhythm and normal heart sounds Abdominal Exam Abdominal exam: Present soft and normal bowel sounds; Absent distention or tenderness Neurological Exam Neurological exam: Present alert, oriented X3 and normal gait Medical Decision Making Luke Inquiry Pt receiving controlled substance: No Luke was queried for this patient: No Vital Signs: 10/11/23 15:40 Temperature 98.1 F Temperature Source Oral Pulse Rate [Left Brachial] 106 H Respiratory Rate 21 Blood Pressure [Left Arm] 119/78 Blood Pressure Mean [Left Arm] 91 Blood Pressure Source [Left Arm] Automatic Cuff Blood Pressure Position [Left Arm] Sitting 02 Sat by Pulse Oximetry 96 Oxygen Delivery Method Room Air Lab Data Lab results reviewed: Yes I reviewed the patient's lab results.
[2023-10-11 16:03] LABS: UTC Influenza A Antigen Negative (Negative); UTC Influenza B Antigen Negative (Negative)
[2023-10-11 16:10] VITALS: BP 119/78; PULSE 106; RESP 21; TEMP 36.7; O2SAT 96
== END 2023-10-11 16:18 | disposition home or self-care (01) ==
PROVIDERS: Emergency Provider Nurse Practitioner; PCP Nurse Practitioner Family
DX: J01.90 Acute sinusitis, unspecified (principal); H92.01 Otalgia, right ear; R09.81 Nasal congestion; R51.9 Headache, unspecified; M79.18 Myalgia, other site; E03.9 Hypothyroidism, unspecified
CPT/HCPCS: 87804; 99212; 99214; G0463

== ENCOUNTER 2024-01-07 16:56 | Emergency (ER) | payer OTHER, SELFPAY ==
[2024-01-07 17:00] VITALS: BP 131/85; PULSE 73; RESP 19; TEMP 36.8; O2SAT 97; BMI 39.6
--- NOTE | 2024-01-07 17:14 | ED_ITS ---
Discharge Plan Disposition Patient Disposition: Home, Self-Care Condition: Good Prescriptions Prescriptions: New amoxicillin 875 mg tablet 875 mg PO Q12H Qty: 20 0RF fluticasone propionate [Flonase Allergy Relief] 50 mcg/actuation spray,suspension 2 spray intranasal DAILY Qty: 16 0RF Rx Instructions: administer into each nostril No Action levothyroxine 50 mcg tablet 50 mcg PO DAILY Referrals Follow up/Referrals: Naz Rdz APRN [Primary Care Provider] - See instructions Activity Restrictions/Add. Instructions Additional Instructions/Restrictions: *Monitor Temp, Over the counter Motrin or Tylenol as directed/as needed Tylenol every 4 hours and Motrin every 6 hours (as long as your family doctor has told you that you can take it) for fever or pain. and straight to ER if unable to lower temp less than 101.0 after medication given Sleep elevated *Humidifier/Vaporizer *Flonase 2 sprays in each nostril daily but be aware that it may take 2-3 days before you notice improvement Take medication as prescribed Follow up IMMEDIATELY for new or worsening symptoms or no Noticeable improvement over the next 48-72 hours. 911 for difficulty breathing or swallowing Clinical Impressions Clinical Impression: Otitis media Instructions Patient Instructions: Middle Ear Infection, Amoxicillin Discharge ED Provider: Vandana Clements [facility] [place] HPI General Stated complaint: RT ear pain Mode of Arrival: Ambulatory Source of Information: Patient Limitations: No Limitations Time Seen by Provider: 01/07/24 17:14 Description of Symptoms (Recalled from Triage Doc. by RN): PATIENT C/O COUGH, CONGESITON, AND RIGHT EAR PAIN X 2 WEEKS HEENT Symptoms (Recalled from RN notes): Yes Resp Symptoms (Recalled from RN notes): Yes Skin Symptoms (Recalled from RN notes): No MS Symptoms (Recalled from RN notes): No Functional Status (Recalled from RN notes): WNL History of Present Illness Provider Complaint: Patient states that she has been having pain in her right ear for about 2 weeks but her insurance has been messed up and she wasnt able to be seen and having cough and nasal congsetion Related Data Home Medications Medication Instructions Recorded Confirmed levothyroxine 50 mcg tablet 50 mcg PO DAILY Supplement 06/03/23 01/07/24 Previous Rx's Medication Instructions Recorded amoxicillin 875 mg tablet 875 mg PO Q12H #20 tabs 01/07/24 fluticasone propionate 50 2 spray intranasal DAILY #16 grams 01/07/24 mcg/actuation nasal spray,suspension (Flonase Allergy Relief) Allergies Allergy/AdvReac Type Severity Reaction Status Date / Time sulfamethoxazole Allergy Mild Rash Verified 02/04/23 17:44 [From Bactrim] trimethoprim [From Bactrim] Allergy Mild Rash Verified 02/04/23 17:44 Worker's Comp Is this a Worker's Comp case?: No [facility] Disclaimer: The information contained in this section may have been updated after the patient was seen, as this information can be updated by other users. 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 (Updated 01/07/24 @ 17:18 by Vandana Clements APRN) Asthma Thyroid disease Depression Anxiety Migraine Surgical History History of tubal ligation History of hysterectomy History of cholecystectomy Social History Smoking Status: Never smoker alcohol intake: never substance use type: denies use current occupational status: unemployed Travel in the last 8 weeks: None household members: spouse and family housing: house current occupational exposures/hazards: No caffeine: Yes ROS Obtained: Yes All systems reviewed & no additional complaints except as documented and Yes Systems reviewed as appropriate & no additional complaints except as documented Constitutional Constitutional: Reports system reviewed and no additional complaints, except as documented and Reports as per HPI ENT Ears, Nose, Mouth, and Throat: Reports system reviewed and no additional complaints, except as documented, Reports as per HPI, Reports otalgia, Reports nasal congestion and Reports nasal discharge Cardiovascular Cardiovascular: Reports system reviewed and no additional complaints, except as documented and Reports as per HPI Respiratory Respiratory: Reports system reviewed and no additional complaints, except as documented, Reports as per HPI and Reports cough Gastrointestinal Gastrointestingal: Reports system reviewed and no additional complaints, except as documented and as per HPI Physical Exam General General appearance: alert and in no apparent distress ENT ENT exam: Present mucous membranes moist Expanded ENT Exam TM/Canal exam: Right TM: erythema and bulging Nose exam: Absent sinus tenderness Respiratory Respiratory exam: Present normal lung sounds bilaterally; Absent respiratory distress or wheezes Cardiovascular Cardiovascular exam: Present regular rate, normal rhythm and normal heart sounds Neurological Exam Neurological exam: Present alert, oriented X3 and normal gait Medical Decision Making Luke Inquiry Pt receiving controlled substance: No Luke was queried for this patient: No Vital Signs: 01/07/24 17:00 Temperature 98.3 F Temperature Source Oral Pulse Rate [Left Brachial] 73 Respiratory Rate 19 Blood Pressure [Left Arm] 131/85 Blood Pressure Mean [Left Arm] 100 Blood Pressure Source [Left Arm] Automatic Cuff Blood Pressure Position [Left Arm] Sitting 02 Sat by Pulse Oximetry 97 Oxygen Delivery Method Room Air
[2024-01-07 17:24] VITALS: BP 131/85; PULSE 73; RESP 19; TEMP 36.8; O2SAT 97
== END 2024-01-07 17:26 | disposition home or self-care (01) ==
PROVIDERS: Emergency Provider Nurse Practitioner; PCP Nurse Practitioner Family
DX: H66.91 Otitis media, unspecified, right ear (principal); R05.9 Cough, unspecified; R09.81 Nasal congestion; E03.9 Hypothyroidism, unspecified
CPT/HCPCS: 99212; 99214; G0463

== ENCOUNTER 2024-02-28 14:19 | Emergency (ER) | payer OTHER, SELFPAY ==
[2024-02-28 15:35] VITALS: BP 120/72; PULSE 106; RESP 20; TEMP 37; O2SAT 96; BMI 39.4
--- NOTE | 2024-02-28 15:53 | EXP.UTC ---
Discharge Plan Disposition Patient Disposition: Home, Self-Care Condition: Good Prescriptions Prescriptions: No Action levothyroxine 50 mcg tablet 50 mcg PO DAILY Referrals Follow up/Referrals: Humera Garcia APRN [Primary Care Provider] - See instructions Activity Restrictions/Add. Instructions Additional Instructions/Restrictions: No sign of a bacterial infection. Likely viral. Viruses can take 7-14 days to run their course. Nasal saline and bulb syringe or nose Alexandrea to remove nasal drainage to help with nasal congestion. Hard to eat, drink, sleep with nasal congestion so important to keep this cleaned out. Monitor temp. Tylenol or Motrin as needed for pain or fever Encourage fluids, water, Gatorade, Powerade, Pedialyte if infant/toddler/child Warm salt water gargles Warm fluids Sore throat lozenges Sleep elevated Humidifier/vaporizer Follow-up immediately for new or worsening symptoms or no noticeable improvement over the next 48-72 hours. Clinical Impressions Clinical Impression: Upper respiratory infection Instructions Patient Instructions: DI for Viral Upper Respiratory Infection -- Adult Discharge ED Provider: Judit ([facility])Celeste [facility] [place] HPI General Stated complaint: fever, headache, bodyaches Mode of Arrival: Ambulatory Source of Information: Patient Limitations: No Limitations Time Seen by Provider: 02/28/24 15:53 Description of Symptoms (Recalled from Triage Doc. by RN): PATIENT C/O COUGH, HEADACHE, BODY ACHES, FEVER, AND KIDNEY PAIN SINCE YESTERDAY HEENT Symptoms (Recalled from RN notes): Yes Resp Symptoms (Recalled from RN notes): Yes Skin Symptoms (Recalled from RN notes): No MS Symptoms (Recalled from RN notes): No Functional Status (Recalled from RN notes): WNL History of Present Illness Provider Complaint: 34 yr old female presents for fever,body aches,garza, and jason kidney pain since yesterday Related Data Home Medications Medication Instructions Recorded Confirmed levothyroxine 50 mcg tablet 50 mcg PO DAILY Supplement 06/03/23 02/28/24 Allergies Allergy/AdvReac Type Severity Reaction Status Date / Time sulfamethoxazole Allergy Mild Rash Verified 02/04/23 17:44 [From Bactrim] trimethoprim [From Bactrim] Allergy Mild Rash Verified 02/04/23 17:44 Worker's Comp Is this a Worker's Comp case?: No [facility] Disclaimer: The information contained in this section may have been updated after the patient was seen, as this information can be updated by other users. 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 , ACCESSIONER) Asthma Thyroid disease Depression Anxiety Migraine Surgical History , ACCESSIONER) History of tubal ligation History of hysterectomy History of cholecystectomy Social History , ACCESSIONER) Smoking Status: Never smoker alcohol intake: never substance use type: denies use current occupational status: unemployed Travel in the last 8 weeks: None household members: spouse and family housing: house current occupational exposures/hazards: No caffeine: Yes ROS Obtained: Yes All systems reviewed & no additional complaints except as documented Constitutional Constitutional: Reports system reviewed and no additional complaints, except as documented, Reports as per HPI, Reports body ache, Reports chills, Reports fever(s), Reports headache(s) and Reports malaise Eyes Eyes: Reports system reviewed and no additional complaints, except as documented ENT Ears, Nose, Mouth, and Throat: Reports system reviewed and no additional complaints, except as documented, Reports as per HPI, Reports otalgia and Reports headache(s) Cardiovascular Cardiovascular: Reports system reviewed and no additional complaints, except as documented Respiratory Respiratory: Reports system reviewed and no additional complaints, except as documented Gastrointestinal Gastrointestingal: Reports system reviewed and no additional complaints, except as documented Musculoskeletal Musculoskeletal: Reports system reviewed and no additional complaints, except as documented Integumentary/Breasts Skin/Breast: Reports system reviewed and no additional complaints, except as documented Neurologic Neurologic: Reports system reviewed and no additional complaints, except as documented and Reports headache(s) Endocrine Endocrine: Reports system reviewed and no additional complaints, except as documented Hematologic/Lymphatic Henatologic/Lymphatic: Reports system reviewed and no additional complaints, except as documented Allergic/Immunologic Allergic/Immunologic: Reports system reviewed and no additional complaints, except as documented Physical Exam General General appearance: alert and in no apparent distress Head Head exam: atraumatic Eye Eye exam: Present normal appearance ENT ENT exam: Present normal exam, normal oropharynx, mucous membranes moist and TM's normal bilaterally Respiratory Respiratory exam: Present normal lung sounds bilaterally Cardiovascular Cardiovascular exam: Present regular rate and normal rhythm Back Exam Back 1 view image: 1. tender Neurological Exam Neurological exam: Present alert and oriented X3 Psychiatric Psychiatric exam: Present normal affect Skin Skin exam: Present warm and intact Lymphatic Lymphatic Findings: no adenopathy Medical Decision Making Medical Records Medical records reviewed: Yes I reviewed the patient's medical records. Luke Inquiry Pt receiving controlled substance: No Luke was queried for this patient: No Vital Signs: 02/28/24 15:35 Temperature 98.6 F Temperature Source Oral Pulse Rate [Left Brachial] 106 H Respiratory Rate 20 Blood Pressure [Left Arm] 120/72 Blood Pressure Mean [Left Arm] 88 Blood Pressure Source [Left Arm] Automatic Cuff Blood Pressure Position [Left Arm] Sitting 02 Sat by Pulse Oximetry 96 Oxygen Delivery Method Room Air
[2024-02-28 16:04] LABS: Apearance,Urine Cloudy (Clear); Bilirubin,Urine 1+ (Negative); Blood, Urine Negative (Negative); Color,Urine Amber (Yellow); Glucose,Urine (UA) Negative (Negative); Ketones,Urine 15 (Negative); PH,Urine 6.5 (5.0-8.5); Protein,Urine 1+ (Negative); Specific Gravity, Urine 1.025 (1.005-1.030); UTC Leukocyte Esterase,Urine Negative (Negative); UTC Nitrate,Urine Negative (Negative); UTC Strep Screen (Rapid) Negative (Negative); Urobilinogen,Urine 0.2 EU/dl (0.2)
[2024-02-28 16:10] VITALS: BP 120/72; PULSE 106; RESP 20; TEMP 37; O2SAT 96
[2024-02-28 16:26] LABS: Adenovirus,PCR Not Detected (NotDetected); Bordetella Pertussis Not Detected (NotDetected); Chlamydophila Pneumoniae, PCR Not Detected (NotDetected); Coronavirus 19, PCR Not Detected (NotDetected); Coronavirus 229E Not Detected (NotDetected); Coronavirus NL63 Not Detected (NotDetected); Coronavirus OC43 Not Detected (NotDetected); Coronovirus HKU1,PCR Not Detected (NotDetected); Human Metapneumovirus Not Detected (NotDetected); Influenza A, PCR Not Detected (NotDetected); Influenza AH1, 2009 Not Detected (NotDetected); Influenza AH1, PCR Not Detected (NotDetected); Influenza AH3,PCR Not Detected (NotDetected); Influenza B, PCR Not Detected (NotDetected); Mycoplasma Pneumoniae, PCR Not Detected (NotDetected); Parainfluenza 1, PCR Not Detected (NotDetected); Parainfluenza 2, PCR Not Detected (NotDetected); Parainfluenza 3, PCR Not Detected (NotDetected); Parainfluenza 4, PCR Not Detected (NotDetected); Respiratory Syncytial Virus Not Detected (NotDetected); Rhinovirus/Enterovirus Not Detected (NotDetected)
== END 2024-02-28 16:24 | disposition home or self-care (01) ==
PROVIDERS: Emergency Provider Nurse Practitioner Family; PCP Nurse Practitioner
DX: M54.59 Other low back pain (principal); B96.89 Other specified bacterial agents as the cause of diseases classified elsewhere; R51.9 Headache, unspecified; R50.9 Fever, unspecified; R05.9 Cough, unspecified
CPT/HCPCS: 81003; 87086; 87581; 87632; 87635; 87798; 87880; 99212; 99213; G0463

== ENCOUNTER 2024-03-06 05:53 | Emergency (ER) | payer OTHER, SELFPAY ==
[2024-03-06] VITALS (14 sets, daily range): BP systolic 109–137; BP diastolic 66–87; PULSE 92–110; RESP 16–20; TEMP 36.8–36.9; O2SAT 88–98; BMI 25.7
--- NOTE | 2024-03-06 06:23 | XR_ITS ---
PROCEDURE INFORMATION: Exam: XR Chest Exam date and time: 03/06/2024 6:36 AM Age: 34 years old Clinical indication: Cough and shortness of breath; Additional info: SOA hypoxia TECHNIQUE: Imaging protocol: Radiologic exam of the chest. Views: 2 views. COMPARISON: CR XR CHEST 2V 06/19/2020 2:32 PM FINDINGS: Lungs: Suggestion of diffuse interstitial predominantly central lung markings. Prominence of the bilateral hilum. Pleural spaces: Unremarkable. No pleural effusion. No pneumothorax. Heart/Mediastinum: Unremarkable. No cardiomegaly. Bones/joints: Unremarkable. IMPRESSION: Suggestion of diffuse interstitial predominantly central lung markings with prominence of the bilateral hilum. These findings are better seen on comparative CT pulmonary angiogram performed concurrently.
--- NOTE | 2024-03-06 06:30 | HMH.EDGENADL ---
Discharge Plan Disposition Chief Complaint: Shortness of Breath/Dyspnea Prescriptions Prescriptions: No Action levothyroxine 50 mcg tablet 50 mcg PO DAILY Referrals Follow up/Referrals: Humera Garcia APRN [Primary Care Provider] - See instructions Discharge ED Provider: Tl Ortega General Adult HPI General Chief complaint: Shortness of Breath/Dyspnea Stated complaint: SOA, headache, cough, right ear hearing loss Time Seen by Provider: 03/06/24 06:23 Mode of Arrival: Family Vehicle Source of Information: Patient Limitations: No Limitations Description of Symptoms (Recalled from ER Triage Doc. by RN): 34 yo female presents following a week of URI symptoms. States she has headache from coughing, right ear pain and decreased hearing and dyspnea. History of Present Illness HPI narrative: 34-year-old female presents to the ER for concerns of shortness of breath. She had upper respiratory symptoms last week but tested negative for all the viruses on the viral swab. In the last few days she has gotten progressively worse having fevers, difficulty breathing. She denies any chest pain. She states she has decreased hearing in the right ear and pain In the ear. Patient is tearful stating she is miserable. She states she gets horrible headache when she coughs. She has been trying an albuterol inhaler that her friend gave her since she does have a history of asthma and allergies but has not had significant improvement of symptoms. Related Data Home Medications Medication Instructions Recorded Confirmed levothyroxine 50 mcg tablet 50 mcg PO DAILY Supplement 06/03/23 02/28/24 Allergies Allergy/AdvReac Type Severity Reaction Status Date / Time sulfamethoxazole Allergy Mild Rash Verified 02/04/23 17:44 [From Bactrim] trimethoprim [From Bactrim] Allergy Mild Rash Verified 02/04/23 17:44 [facility] Disclaimer: The information contained in this section may have been updated after the patient was seen, as this information can be updated by other users. 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 , [employer]) Asthma Thyroid disease Depression Anxiety Migraine Surgical History , [employer]) History of tubal ligation History of hysterectomy History of cholecystectomy Social History , [employer]) Smoking Status: Unknown if ever smoked alcohol intake: never substance use type: denies use current occupational status: unemployed Travel in the last 8 weeks: None household members: spouse and family housing: house current occupational exposures/hazards: No caffeine: Yes ROS Obtained: Yes All systems reviewed & no additional complaints except as documented Constitutional Constitutional: Denies chills, Reports fever(s), Reports headache(s) and Denies weakness Eyes Eyes: Denies change in vision ENT Ears, Nose, Mouth, and Throat: Denies dizziness, Reports headache(s), Denies nasal congestion and Denies sore throat Cardiovascular Cardiovascular: Denies chest pain, Reports dyspnea and Denies leg edema Respiratory Respiratory: Denies cough and Reports dyspnea Gastrointestinal Gastrointestingal: Denies constipation, diarrhea, nausea or vomiting Genitourinary Female Genitourinary: Denies dysuria Musculoskeletal Musculoskeletal: Denies arthralgias, Denies myalgias, Denies numbness and Denies tingling Integumentary/Breasts Skin/Breast: Denies change in pigmentation Neurologic Neurologic: Denies dizziness, Reports headache(s), Denies numbness, Denies tingling and Denies weakness Physical Exam General General appearance: alert and in no apparent distress Head Head exam: atraumatic and normocephalic Eye Eye exam: Present PERRL and EOMI ENT ENT exam: Present mucous membranes moist Neck Neck exam: Present normal inspection and full ROM Chest Chest inspection: Present symmetric chest wall rise Respiratory Respiratory exam: Present wheezes and other (Rales, especially right base); Absent respiratory distress or stridor Cardiovascular Cardiovascular exam: Present regular rate, normal rhythm and tachycardia Abdominal Exam Abdominal exam: Present soft; Absent distention or tenderness Extremities Exam Extremities exam: Present full ROM Neurological Exam Neurological exam: Present alert and oriented X3; Absent motor sensory deficit Psychiatric Psychiatric exam: Present normal affect and normal mood Skin Skin exam: Present warm and dry Medical Decision Making Luke Inquiry Pt receiving controlled substance: No Vital Signs: 03/06/24 06:12 03/06/24 06:35 03/06/24 06:35 Temperature 98.2 F Temperature Source Oral Pulse Rate 109 H Pulse Rate [Right Brachial] 108 H Respiratory Rate 16 Blood Pressure [Right Arm] 134/87 Blood Pressure Mean [Right Arm] 102 Blood Pressure Source [Right Arm] Automatic Cuff Blood Pressure Position [Right Arm] Sitting 02 Sat by Pulse Oximetry 98 91 L Oxygen Delivery Method Room Air Nasal Cannula Oxygen Flow Rate (LPM) 2 03/06/24 06:35 Temperature Temperature Source Pulse Rate 108 H Pulse Rate [Right Brachial] Respiratory Rate Blood Pressure [Right Arm] Blood Pressure Mean [Right Arm] Blood Pressure Source [Right Arm] Blood Pressure Position [Right Arm] 02 Sat by Pulse Oximetry Oxygen Delivery Method Oxygen Flow Rate (LPM) Orders (Tests/Meds): ED MEDICATIONS Generic Name Dose Route Start Last Admin Trade Name Freq PRN Reason Stop Dose Admin Lactated Ringer's 1,000 mls @ 999 mls/hr 03/06/24 06:23 Lactated Ringer's 1000 Ml Bag IV 03/06/24 08:23 .Q1H1M BRUNILDA Vancomycin/PEG/NADA/Lysine/Water 1.25 gm in 250 mls @ 125 mls/hr 03/06/24 07:00 Vancomycin 1.25gm/250ml (Peg) Premix IV 03/06/24 08:59 ONCE ONE Miscellaneous 1 each 03/06/24 06:30 03/06/24 06:50 Vancomycin Consult Request NOTAPPLIC 04/05/24 06:29 Not Given CONSULT PHARMACY BRUNILDA Discontinued Medications Generic Name Dose Route Start Last Admin Trade Name Freq PRN Reason Stop Dose Admin Albuterol/Ipratropium 9 ml 03/06/24 06:17 03/06/24 06:34 Ipratropium/Albuterol 3 Ml Neb IH 03/06/24 06:18 9 ml ONCE ONE Administration Ceftriaxone Sodium 1 gm/ 50 mls @ 100 mls/hr 03/06/24 06:27 03/06/24 07:03 Sodium Chloride IV 03/06/24 06:56 100 mls/hr ONCE ONE Administration ORDERS Category Date Time Status CT angio chest PE protocol Stat Cat Scan 03/06/24 06:57 Ordered CXR 2 view (NOT portable) [XR chest 2V] Stat Exams 03/06/24 06:23 Taken CBC w/Auto Diff [Complete Blood Count Auto Diff] Stat Lab 03/06/24 06:23 Ordered CMP [Comprehensive Metabolic Panel] Stat Lab 03/06/24 06:23 Ordered Serum [HCG Qualitative, Serum] Stat Lab 06/15/24 06:55 Ordered Trop I [Troponin I] Stat Lab 03/06/24 06:23 Ordered Troponin I Q3H Lab 03/06/24 09:45 Ordered Troponin I Q3H Lab 03/06/24 12:45 Ordered Urinalysis and Microscopic Stat Lab 03/06/24 06:26 Ordered Blood Culture Stat Micro 03/06/24 07:04 Ordered VBG [Venous Blood Gas] Stat RT 03/06/24 07:04 Ordered ECG Request Stat Y 03/06/24 06:38 Ordered Medical Decision Narrative: In summary, this 34-year-old female presents to the emergency department today with difficulty breathing, fevers, headache associated with cough. On initial evaluation patient is tachycardic, hypoxic to 87% on room air, afebrile, ill-appearing but not an extremis, patient has wheezes and rales especially in her right lung field, no other acute abnormalities on exam. Differential diagnosis includes but is not limited to sepsis, pneumonia, I considered ACS though I have low suspicion for this, also considered electrolyte abnormality, dehydration, bacteremia, tract infection. Patient does meet sepsis criteria. Based on these concerns, I ordered 30 ml/Kg fluid bolus, broad-spectrum antibiotics, chest x-ray, urinalysis, blood cultures, serum labs. ECG personally interpreted demonstrates sinus tachycardia, rate 107, borderline right axis deviation, TX normal at 130, QTc normal at 410, patient does have trace T wave abnormalities in leads II, 3, aVF, no reciprocal changes, no STEMI. Patient received IV fluids, vancomycin, Rocephin, DuoNeb for treatment. Chest x-ray personally interpreted does not demonstrate obvious lobar infiltrate, given patient is tachycardic and hypoxic, increased suspicion for possible PE, CT PE added to workup. On reassessment after receiving DuoNebs patient states she feels slightly improved, however she continues to have oxygen requirement. She is saturating 93% on 3 L nasal cannula. Labs pending at time of physician handoff. Patient handed off to Dr. Cristobal pending labs, CT PE. Critical Care Critical Care Time Critical Care Time: Yes Attestation: On 03/06/24, the high probability of a clinically significant, sudden or life threatening deterioration of the following system(s) (respiratory, cardiac) required my full and direct attention, intervention and personal management. The time I documented below is in addition to time spent performing reported procedures but includes the following listed in this critical care notation. Total Time Total Critical Care Time: 35
[2024-03-06] MEDS: IPRATROPIUM/ALBUTEROL 3 ML NEB 9 ML IH (06:34)
--- NOTE | 2024-03-06 06:49 | PC.NURSE ---
Contacted after-hours pharmacy for vancomycin dosing.
--- NOTE | 2024-03-06 06:57 | CT_ITS ---
PROCEDURE INFORMATION: Exam: CTA Chest With Contrast Exam date and time: 03/06/2024 8:00 AM Age: 34 years old Clinical indication: Cough and shortness of breath; Additional info: SOA, hypoxia, tachy TECHNIQUE: Imaging protocol: Computed tomographic angiography of the chest with contrast. Exam focused on the arteries. 3D rendering (Not supervised by radiologist): MIP and/or 3D reconstructed images were created by the technologist. Radiation optimization: All CT scans at this facility use at least one of these dose optimization techniques: automated exposure control; mA and/or kV adjustment per patient size (includes targeted exams where dose is matched to clinical indication); or iterative reconstruction. Contrast material: ISOVUE; Contrast volume: 70 ml; Contrast route: INTRAVENOUS (IV); COMPARISON: CR XR CHEST 2V 03/06/2024 6:36 AM FINDINGS: Pulmonary arteries: Contrast bolus timing is adequate for assessment of the main and proximal segmental pulmonary arteries. The distal segmental and subsegmental arteries are not well opacified, limiting characterization. Within these limitations, there is no pulmonary embolus. Aorta: Unremarkable. No aortic aneurysm. No aortic dissection. Lungs: There is diffuse tree-in-bud and centrilobular nodular opacities throughout the bilateral lung angel calcified nodule along the right lateral major fissure which may represent node or granuloma. Pleural spaces: See Lungs finding. Heart: Unremarkable. No cardiomegaly. No pericardial effusion. Lymph nodes: Prominent hilar and right paratracheal lymph nodes. Bones/joints: Unremarkable. No acute fracture. Soft tissues: Unremarkable. IMPRESSION: 1. Within the above limitations, no pulmonary embolus. 2. Nonspecific diffuse tree-in-bud nodularity as well as centrilobular nodularity, predominantly of the bilateral lung bases, however does exist in the upper lobes. Additional finding of prominent hilar and right paratracheal lymph nodes. Findings suggest sarcoidosis, however additional differentials include RV ILD, hypersensitivity pneumonitis, atypical pneumonias to include viruses. Correlate with patient's signs and symptoms as well as presentation. Pulmonary consultation can be obtained for further assessment.
--- NOTE | 2024-03-06 07:01 | ECG_ITS ---
APPROVED REPORT Exam: Resting ECG HR:107 bpm ECG Measurements Heart Rate 107 AXES TX 130 P 60 QRSd 94 QRS 99 QT 347 T 32 QTc 410 Conclusion SINUS TACHYCARDIA BORDERLINE RIGHT AXIS DEVIATION [QRS AXIS > 90] NONSPECIFIC T-WAVE ABNORMALITY ABNORMAL RHYTHM ECG Electronically signed by : ANGELA RICARDO, 03/06/2024 11:03:43
[2024-03-06] MEDS: CEFTRIAXONE SODIUM 1 GM in 0.9 % SODIUM CHLORIDE 50 ML IV (07:03)
[2024-03-06 07:12] LABS: Lactate Venous 3.7 mmol/L (0.4-2.0); VBG Base Excess 3.9 mmol/L (-2.4-2.3); VBG HCO3 28.8 mmol/L (23-30); VBG PCO2 47.6 mmol/L (35-51); VBG PO2 29.7 mmol/L (28-40); VBG Total CO2 30.2 mmol/L (23-27)
[2024-03-06 07:19] LABS: Basophils # 0.1 K/mm3 (0-0.2); Basophils % 1.1 % (0.1-2.0); Eosinophils # 0.1 K/mm3 (0.0-0.4); Eosinophils % 0.6 % (0.1-12.0); Hematocrit 43.8 % (37.0-47.0); Hemoglobin 14.7 g/dL (12.2-16.2); Lymphocytes # 2.7 K/mm3 (0.7-4.5); Lymphocytes % 23.8 % (10-50); Mean Corpuscular HGB Conc 33.7 g/dL (31.8-35.4); Mean Corpuscular Hemoglobin 32.8 pg (27.0-31.2); Mean Corpuscular Volume 97.4 fl (81-99); Mean Platelet Volume 7.8 fl (7.4-10.4); Monocytes # 0.5 K/mm3 (0.1-1.0); Monocytes % 4.3 % (1.7-9.3); Neutrophils # 8.1 K/mm3 (1.8-7.8); Neutrophils % 70.2 % (37.0-80.0); Platelet Count 402 K/mm3 (142-424); Red Cell Distribution Width 13.4 % (11.5-17.5); White Blood Count 11.5 K/mm3 (4.8-10.8)
[2024-03-06 07:36] LABS: Chloride 100 mmol/L (98-107); Potassium 3.3 mmoL/L (3.5-5.1); Sodium 141 mmol/L (136-145)
[2024-03-06 07:39] LABS: Alanine Aminotransferase 34 U/L (12-78); Albumin Level 4.1 g/dl (3.5-5.0); Albumin/Globulin Ratio 1.5 (1.1-1.8); Alkaline Phosphatase 77 U/L (38-126); Anion Gap 11.3 mEq/L (5-15); Aspartate Amino Transferase 37 U/L (14-36); Bilirubin,Total 0.4 mg/dl (0.2-1.3); Blood Urea Nitrogen 16 mg/dl (7-17); Carbon Dioxide 33 mmol/L (22.0-30.0); Creatinine Clearance Estimated 103 mL/min (50-200); Estimated Glomerular Filt Rate 82 ml/min (>60); GFR (African American) 99 ML/MIN (>60); Globulin 2.7 g/dL (1.3-3.2); Total Protein,Serum 6.8 g/dl (6.3-8.2)
[2024-03-06 07:40] LABS: Calcium 10.1 mg/dl (8.4-10.2); Glucose 107 mg/dl (74-100)
[2024-03-06] MEDS: LACTATED RINGERS 1000ML 1,000 ML 999 ML IV (07:41)
[2024-03-06 07:49] LABS: HCG Qualitative, Serum Negative (Negative)
--- NOTE | 2024-03-06 07:50 | PC.NURSE ---
pt to CT by WC at this time
[2024-03-06 07:51] LABS: Troponin I < 0.01 ng/ml (0.00-0.034)
--- NOTE | 2024-03-06 08:04 | PC.NURSE ---
PT returned to room from CT
[2024-03-06] MEDS: SODIUM CHLORIDE 0.9% 10ML SYR (RAD ONLY) 10 ML IV (08:08)
[2024-03-06] MEDS: 0.9 % SODIUM CHLORIDE 50 ML VIAL IV (08:08)
[2024-03-06] MEDS: IOPAMIDOL-370 (76%);100ML BOTTLE 70 ML IV (08:09)
[2024-03-06] MEDS: METHYLPREDNISOLONE SOD SUCC 125MG VIAL 125 MG IV (08:17)
[2024-03-06] MEDS: AZITHROMYCIN 500 MG in 0.9 % SODIUM CHLORIDE 250 ML 250 MG IV (08:17)
[2024-03-06 08:55] LABS: Microscopic, Urine URINE MICROSCOPIC (MICROSCOPIC)
--- NOTE | 2024-03-06 08:55 | PC.NURSE ---
Respiratory notified of albuterol inhaler & aero chamber device
[2024-03-06] MEDS: ACETAMINOPHEN 500MG TAB 1000 MG PO (09:11)
[2024-03-06] MEDS: KETOROLAC 30MG/ML VIAL 30 MG IV (09:11)
[2024-03-06] MEDS: AEROCHAMBER/OPTIHALER 1 UNIT MC (09:39)
[2024-03-06] MEDS: POTASSIUM CHLORIDE 20MEQ TAB 40 MEQ PO (09:47)
[2024-03-06 09:51] LABS: Appearance,Urine CLEAR (Clear); Bilirubin,Urine Negative (Negative); Blood, Urine Negative (Negative); Color,Urine YELLOW (Yellow); Glucose,Urine (UA) Negative (Negative); Ketones,Urine Negative (Negative); Leukocyte Esterase,Urine Negative (Negative); Nitrate,Urine Negative (Negative); Protein,Urine Negative (Negative); Specific Gravity, Urine <= 1.005 (1.005-1.030); Urobilinogen,Urine 0.2 EU/dl (0.2)
[2024-03-06 10:54] LABS: Squamous Epithelial Cell,Urine Occasional #/hpf (0-5); WBC,Urine Occasional #/hpf (0-3)
[2024-03-06 10:55] LABS: Bacteria,Urine Trace /lpf
[2024-03-06 11:13] LABS: Reflex Lactic Add Lactic Reflex
== END 2024-03-06 09:58 | disposition home or self-care (01) ==
PROVIDERS: Emergency Medicine; Emergency Provider Emergency Medicine; PCP Nurse Practitioner
DX: J18.8 Other pneumonia, unspecified organism (principal); R06.02 Shortness of breath; R74.02 Elevation of levels of lactic acid dehydrogenase [LDH]; R06.2 Wheezing; E87.6 Hypokalemia; R00.0 Tachycardia, unspecified; R51.9 Headache, unspecified; R05.9 Cough, unspecified; R09.02 Hypoxemia; R59.0 Localized enlarged lymph nodes; E03.9 Hypothyroidism, unspecified
CPT/HCPCS: 71046; 71275; 80053; 81001; 82803; 84484; 84703; 85025; 87040; 93005; 96365; 96366; 96367; 96375; 99291; J0456; J0696; J1885; J2930; J7030; J7120; J7620; Q9967

== ENCOUNTER 2024-03-08 19:31 | Inpatient (IN) | payer OTHER, SELFPAY ==
[2024-03-08] VITALS (13 sets, daily range): BP systolic 110–147; BP diastolic 74–97; PULSE 80–103; RESP 16–20; TEMP 36.6–36.8; O2SAT 93–98; BMI 38.4; BMI 48.2
--- NOTE | 2024-03-08 19:32 | ECG_ITS ---
APPROVED REPORT Exam: Resting ECG HR:88 bpm ECG Measurements Heart Rate [address] 137 P 40 QRSd 86 QRS 79 QT 364 T 63 QTc 410 Conclusion SINUS RHYTHM NORMAL ECG Electronically signed by : MIGUEL ANGEL JONES, 03/08/2024 22:40:22
--- NOTE | 2024-03-08 19:48 | XR_ITS ---
PROCEDURE INFORMATION: Exam: XR Chest Exam date and time: 03/08/2024 8:35 PM Age: 34 years old Clinical indication: Cough and shortness of breath; Additional info: SOA, cough, fever, weakness TECHNIQUE: Imaging protocol: Radiologic exam of the chest. Views: 2 views. COMPARISON: CT ANGIO CHEST PE PROTOCOL 03/06/2024 8:00 AM FINDINGS: Lungs: No consolidation. Pleural spaces: No pleural effusion. No pneumothorax. Heart/Mediastinum: No cardiomegaly. Bones/joints: Unremarkable. IMPRESSION: No acute pulmonary findings.
[2024-03-08 20:01] LABS: VBG Base Excess 4.9 mmol/L (-2.4-2.3); VBG HCO3 28.9 mmol/L (23-30); VBG Oxygen Saturation 84.8 % (50-70); VBG PCO2 42.6 mmol/L (35-51); VBG PH 7.45 mmol/L (7.31-7.41); VBG PO2 46.2 mmol/L (28-40); VBG Total CO2 30.2 mmol/L (23-27)
[2024-03-08 20:02] LABS: Basophils # 0.2 K/mm3 (0-0.2); Basophils % 1.9 % (0.1-2.0); Chloride 102 mmol/L (98-107); Eosinophils # 0.1 K/mm3 (0.0-0.4); Eosinophils % 1.1 % (0.1-12.0); Hemoglobin 14.4 g/dL (12.2-16.2); Lymphocytes # 3.8 K/mm3 (0.7-4.5); Mean Corpuscular HGB Conc 33.5 g/dL (31.8-35.4); Mean Corpuscular Hemoglobin 32.2 pg (27.0-31.2); Mean Corpuscular Volume 96.3 fl (81-99); Mean Platelet Volume 7.6 fl (7.4-10.4); Monocytes # 0.4 K/mm3 (0.1-1.0); Monocytes % 3.5 % (1.7-9.3); Neutrophils # 6.6 K/mm3 (1.8-7.8); Neutrophils % 59.5 % (37.0-80.0); Platelet Count 399 K/mm3 (142-424); Potassium 3.6 mmoL/L (3.5-5.1); Red Blood Count 4.46 M/mm3 (4.20-5.40); Red Cell Distribution Width 13.4 % (11.5-17.5); Sodium 139 mmol/L (136-145); White Blood Count 11.1 K/mm3 (4.8-10.8)
[2024-03-08 20:04] LABS: Blood Urea Nitrogen 17 mg/dl (7-17); Creatinine Clearance Estimated 154 mL/min (50-200); Estimated Glomerular Filt Rate 82 ml/min (>60); GFR (African American) 99 ML/MIN (>60)
[2024-03-08 20:05] LABS: Alanine Aminotransferase 74 U/L (12-78); Albumin Level 3.9 g/dl (3.5-5.0); Albumin/Globulin Ratio 1.3 (1.1-1.8); Alkaline Phosphatase 76 U/L (38-126); Anion Gap 9.6 mEq/L (5-15); Aspartate Amino Transferase 56 U/L (14-36); Bilirubin,Total 0.3 mg/dl (0.2-1.3); Calcium 8.8 mg/dl (8.4-10.2); Carbon Dioxide 31 mmol/L (22.0-30.0); Globulin 3.1 g/dL (1.3-3.2); Glucose 143 mg/dl (74-100)
[2024-03-08 20:15] LABS: NT Pro Brain Natriuretic Pep. 293 pg/mL (0-125)
[2024-03-08 20:18] LABS: Troponin I < 0.01 ng/ml (0.00-0.034)
--- NOTE | 2024-03-08 20:26 | ED_ITS ---
Discharge Plan Disposition Patient Disposition: Admitted Chief Complaint: Upper Respiratory Infection Prescriptions Prescriptions: No Action levothyroxine 50 mcg tablet 50 mcg PO DAILY azithromycin [Zithromax Z-Thomas] 250 mg tablet 250 mg PO DAILY 4 Days Qty: 4 0RF Rx Instructions: start on day 2 of therapy Clinical Impressions Clinical Impression: Acute hypoxemic respiratory failure, Restrictive lung disease Discharge ED Provider: Arya Souza General Adult HPI General Chief complaint: Upper Respiratory Infection Stated complaint: chest pain Time Seen by Provider: 03/08/24 19:35 Mode of Arrival: Ambulatory Source of Information: Patient Limitations: No Limitations Description of Symptoms (Recalled from ER Triage Doc. by RN): C/O chest pain and SOB , sick since last Friday and was DX with pneumonia on Friday History of Present Illness HPI narrative: Please note that above description of symptoms, in this electronic medical record under categorization of recalled from ER triage doctor by RN are reflective of an initial nursing assessment, however, is not reflective of my full history and physical exam that was personally taken and clarified. Consequentially, this preceding description of symptoms, which may include the patient's categorized chief complaint in the EMR, do not reflect my personal clinical impression, and the ultimate description of history of present illness and patient stated complaints should be deferred to this section of the note. Unless stated otherwise or congruent with this section of the note, additional signs, symptoms, or incongruence should be interpreted as inaccurate with my clinical impression. Related Data Home Medications Medication Instructions Recorded Confirmed levothyroxine 50 mcg tablet 50 mcg PO DAILY Supplement 06/03/23 02/28/24 Previous Rx's Medication Instructions Recorded azithromycin 250 mg tablet 250 mg PO DAILY Pneumonia 4 days 03/06/24 (Zithromax Z-Thomas) #4 tabs Allergies Allergy/AdvReac Type Severity Reaction Status Date / Time sulfamethoxazole Allergy Mild Rash Verified 03/08/24 19:49 [From Bactrim] trimethoprim [From Bactrim] Allergy Mild Rash Verified 03/08/24 19:49 [facility] Disclaimer: The information contained in this section may have been updated after the patient was seen, as this information can be updated by other users. 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) Smoking Status: Never smoker alcohol intake: never substance use type: denies use current occupational status: unemployed Travel in the last 8 weeks: None household members: spouse and family housing: house current occupational exposures/hazards: No caffeine: Yes ROS Obtained: Yes All systems reviewed & no additional complaints except as documented Physical Exam General General appearance: alert and in distress (Secondary to coughing and work of breathing.) Head Head exam: atraumatic and normocephalic Eye Eye exam: Present normal appearance, PERRL and EOMI ENT ENT exam: Present mucous membranes moist Neck Neck exam: Present trachea midline Chest Chest inspection: Present normal inspection and symmetric chest wall rise Respiratory Respiratory exam: Present wheezes, prolonged expiratory phase and other (Intermittent cough, tachypneic 22 to 25 breaths/min.); Absent normal lung sounds bilaterally, respiratory distress, stridor or accessory muscle use Cardiovascular Cardiovascular exam: Present normal rhythm and tachycardia Abdominal Exam Abdominal exam: Present soft; Absent distention, tenderness, guarding, rebound or rigidity Extremities Exam Extremities exam: Absent edema Neurological Exam Neurological exam: Present alert, oriented X3 and CN II-XII intact Skin Skin exam: Present warm and dry; Absent cyanosis, diaphoresis or pallor Medical Decision Making Medical Records Medical records reviewed: Yes I reviewed the patient's medical records. Luke Inquiry Pt receiving controlled substance: No Luke was queried for this patient: No Vital Signs: 03/08/24 19:41 03/08/24 19:47 03/08/24 20:08 Temperature 98.2 F Temperature Source Oral Pulse Rate 89 Pulse Rate [Left] 103 H 94 H Respiratory Rate 16 20 Blood Pressure [Right Arm] 147/97 H 110/74 Blood Pressure Mean [Right Arm] 113 86 Blood Pressure Source [Right Arm] Automatic Cuff Automatic Cuff Blood Pressure Position [Right Arm] Sitting 02 Sat by Pulse Oximetry 98 94 L Oxygen Delivery Method Room Air Room Air Lab Data Lab Results 03/08/24 19:39: WBC 11.1 H, RBC 4.46, Hgb 14.4, Hct 43.0, MCV 96.3, MCH 32.2 H, MCHC 33.5, RDW 13.4, Plt Count 399, MPV 7.6, Neut % (Auto) 59.5, Lymph % (Auto) 34.0, [place] % (Auto) 3.5, Eos % (Auto) 1.1, Baso % (Auto) 1.9, Neut # (Auto) 6.6, Lymph # (Auto) 3.8, [place] # (Auto) 0.4, Eos # (Auto) 0.1, Baso # (Auto) 0.2, Sodium 139, Potassium 3.6, Chloride 102, Carbon Dioxide 31 H, Anion Gap 9.6, BUN 17, Creatinine 0.80, Estimated Creat Clear 154, Estimated GFR 82, Est GFR ( Amer) 99, Glucose 143 H, Calcium 8.8, Total Bilirubin 0.3, AST 56 H D, ALT 74 D, Alkaline Phosphatase 76, Troponin I < 0.01, NT-Pro-B Natriuret Pep 293 H, Total Protein 7.0, Albumin 3.9, Globulin 3.1, Albumin/Globulin Ratio 1.3 03/08/24 19:49: VBG pH 7.45 H, VBG pCO2 42.6, VBG pO2 46.2 H, VBG HCO3 28.9, VBG Total CO2 30.2 H, VBG O2 Saturation 84.8 H, VBG Base Excess 4.9 H, VBG Lactic Acid 3.0 H 03/08/24 20:23: Urine HCG, Qual Negative 03/08/24 19:39 03/08/24 19:39 Orders (Tests/Meds): ED MEDICATIONS Generic Name Dose Route Start Last Admin Trade Name Freq PRN Reason Stop Dose Admin Acetaminophen 650 mg 03/08/24 22:13 Acetaminophen 325mg Tab PO 04/07/24 22:12 Q4HP PRN Fever or Mild Pain (1-3) Al Hydrox/Mg Hydrox/Simethicone 30 ml 03/08/24 22:13 Aluminum/Magnesium/Simethicone 30ml Udc PO 04/07/24 22:12 QIDP PRN Dyspepsia Albuterol/Ipratropium 3 ml 03/09/24 00:00 Ipratropium/Albuterol 3 Ml Neb IH 04/08/24 00:00 Q6RT BRUNILDA Enoxaparin Sodium 40 mg 03/09/24 09:00 Enoxaparin 40mg/0.4ml Syringe SQ 04/08/24 08:59 DAILY [facility] Lactated Ringer's 1,570 mls @ 785 mls/hr 03/08/24 20:47 03/08/24 21:27 Lactated Ringer's 1000 Ml Bag 30 ml/kg infuse over 2 hr (1570 ml) 03/08/24 22:46 785 mls/hr IV Administration .Q2H ONE Vancomycin HCl 2,000 mg/ 500 mls @ 250 mls/hr 03/08/24 21:00 Sodium Chloride IV 03/08/24 22:59 ONCE ONE Sodium Chloride 1,000 mls @ 50 mls/hr 03/08/24 22:15 Sod Chlor 0.9% 1000ml Bag IV 04/07/24 22:14 .Q20H [facility] Miscellaneous 1 each 03/08/24 21:00 Vancomycin Consult Request NOTAPPLIC 04/07/24 20:59 CONSULT PHARMACY [facility] Morphine Sulfate 2 mg 03/08/24 22:13 Morphine 2mg/Ml Syringe IV 04/07/24 22:12 Q2HP PRN Severe Pain (7-10) Nicotine 21 mg 03/08/24 22:13 Nicotine 21mg/24hr Patch TD 04/07/24 22:12 DAILYP PRN Nicotine Cravings Ondansetron HCl 4 mg 03/08/24 22:13 Ondansetron 4mg/2ml Vial IV 04/07/24 22:12 Q8HP PRN Nausea Pantoprazole Sodium 40 mg 03/09/24 09:00 Pantoprazole 40mg Tablet PO 04/08/24 08:59 DAILY [facility] Prednisone 20 mg 03/08/24 22:20 Prednisone 20mg Tab PO 04/07/24 22:19 DAILY [facility] Discontinued Medications Generic Name Dose Route Start Last Admin Trade Name Freq PRN Reason Stop Dose Admin Albuterol/Ipratropium 9 ml 03/08/24 19:48 Ipratropium/Albuterol 3 Ml Neb IH 03/08/24 19:49 ONCE ONE Dexamethasone Sodium Phosphate 10 mg 03/08/24 22:01 Dexamethasone 4mg/Ml 1ml Vial IV 03/08/24 22:02 ONCE ONE Ampicillin Sodium/Sulbactam 100 mls @ 200 mls/hr 03/08/24 20:47 03/08/24 21:30 Sodium 3 gm/ Sodium Chloride IV 03/08/24 20:48 200 mls/hr ONCE ONE Administration ORDERS Category Date Time Status Pulmonology Consult [Consult to Pulmonology] [CONS] Cons 03/08/24 22:13 Active Routine CXR 2 view (NOT portable) [XR chest 2V] Stat Exams 03/08/24 19:48 Completed Complete Blood Count Auto Diff AMLAB Lab 03/09/24 06:00 Ordered Complete Blood Count Auto Diff Stat Lab 03/08/24 19:39 Completed Comprehensive Metabolic Panel AMLAB Lab 03/09/24 06:00 Ordered Comprehensive Metabolic Panel Stat Lab 03/08/24 19:39 Completed Magnesium AMLAB Lab 03/09/24 06:00 Ordered NT Pro Brain Natriuretic Pep. Stat Lab 03/08/24 19:39 Completed Trop I [Troponin I] Stat Lab 03/08/24 19:39 Completed Troponin I Q3H Lab 03/08/24 23:00 Ordered Troponin I Q3H Lab 03/09/24 02:00 Ordered Urine , HCG Qual. Stat Lab 03/08/24 20:23 Completed Blood Culture Stat Micro 03/08/24 21:15 Received Venous Blood Gas Stat RT 03/08/24 19:49 Completed Medical Decision Narrative: 34-year-old female history of asthma presenting with concern for chest pain in the setting of pneumonia. Patient was seen a couple days prior to this and diagnosed with pneumonia, sent home with azithromycin. Did not feel like she was getting better, so saw her family doctor and was given cefdinir, started that just this morning. Patient states that she has had cough productive of green sputum, feels febrile, but does not have any objective fevers measured or taken. No vomiting. States that she is short of breath with minimal exertion and not feeling any better, so came in for further evaluation. History was obtained via conversation with patient and chart review. On arrival, patient hemodynamically stable, alert, oriented x4, appropriate, GCS 15, moving all extremities spontaneously, pupils equal and reactive to light. Full physical exam performed and significant for 34-year-old female in mild respiratory distress with mild tachypnea, bilateral diffuse wheezes, and prolonged expiratory phase. No evidence of retractions or accessory muscle use. Cardiac exam within normal limits. No lower extremity edema. Differential includes pneumonia, consolidation, PE, pneumothorax, restrictive versus obstructive lung disease, asthma exacerbation, CHF, autoimmune disease, among others. Patient was given sepsis bolus, 3 DuoNebs, Decadron, vancomycin and Unasyn for symptomatic management and correction of underlying abnormalities. Workup independently interpreted and significant for Leukocytosis 11.1 stable from previous. Platelets normal. Chemistry with normal kidney function, no anion gap. Troponin negative, BNP only mildly elevated to 93, likely secondary to underlying pulmonary constriction. VBG nonactionable. pH 7.45, normal CO2 and bicarb. Lactic acid 3.0. See radiology read for full review of final results. Independent interpretation of EKG shows sinus rhythm 88 beats a minute. No ST or T wave changes concerning for acute ischemia. No evidence of right heart strain. [place] 137, QRS 86, QTc 410. [place] normal. Heart score 0. Independent rotation patient's previous CTA from just a couple days ago was significant for what appears to be restrictive lung disease and adenopathy concerning for pulmonary sarcoidosis. Because patient with oxygen levels 90-92 at rest, still uncomfortable, continued wheezes, although feeling a little bit better, hospital medicine was contacted and case was discussed at length for admission for pulmonology consult. Because patient high risk for clinical decompensation, deemed appropriate for inpatient admission. Results were relayed to patient who voiced understanding and patient was agreeable to inpatient admission and management. Patient was admitted to the hospital for further definitive management. Dental Assistant Medical Assistant disclaimer Much of this encounter note is an electronic business solutions architect spoken language to printed text. Electronic business solutions architect of the spoken language may permit errors. Although I have reviewed the note, some errors may still exist. Critical Care Critical Care Time Critical Care Time: Yes (respiratory) Attestation: On 03/08/24, the high probability of a clinically significant, sudden or life threatening deterioration of the following system(s) required my full and direct attention, intervention and personal management. The time I documented below is in addition to time spent performing reported procedures but includes the following listed in this critical care notation. Total Time Total Critical Care Time: 40
[2024-03-08 20:41] LABS: Urine Pregnancy, HCG Qual. Negative (Negative)
[2024-03-08] MEDS: LACTATED RINGERS 1000ML 1,570 ML 785 ML IV (21:27)
[2024-03-08] MEDS: AMPICILLIN/SULBACTAM 3 GM in 0.9 % SODIUM CHLORIDE 100 ML IV (21:30)
[2024-03-08] MEDS: DEXAMETHASONE 4MG/ML 1ML VIAL 10 MG IV (22:16)
--- NOTE | 2024-03-08 22:20 | P.HP_ITS ---
History of Present Illness *Admission Date: 03/08/24 *Reason for visit:: Shortness of breath and chest tightness *History of present illness: This is a 34-year-old female with past medical history of hypothyroidism, obesity, and asthma, presented to the ED for evaluation on worsening short of breath and chest pain. Patient is stated that symptoms began couple days ago. She started by having cough and fever, subsequently developed what she describes as a chest tightness and difficulty breathing. Patient was seen in the ED. was diagnosed with pneumonia and discharged on Zithromax and prednisone. Patient did not improve went to the primary doctor was discussed, antibiotics changed to the cefdinir. Patient presented today for evaluation nonresolving symptoms. Admitted for further workup and treatment. [facility] Disclaimer: The information contained in this section may have been updated after the patient was seen, as this information can be updated by other users. 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 (Updated 03/09/24 @ 03:11 by Vasquez Murillo APRN) Deviated nasal septum Cyst of bone of right foot Asthma Thyroid disease Depression Anxiety Migraine Surgical History (Updated 03/08/24 @ 23:42 by Annamarie Youngblood RN) History of exploratory laparotomy History of tubal ligation History of hysterectomy History of cholecystectomy Family History (Updated 03/08/24 @ 23:41 by Annamarie Youngblood RN) Other Heart attack Stroke Social History (Updated 03/08/24 @ 23:43 by Annamarie Youngblood RN) Smoking Status: Never smoker alcohol intake: never substance use type: denies use current occupational status: unemployed Travel in the last 8 weeks: None household members: spouse and family housing: house current occupational exposures/hazards: No caffeine: Yes Review of Systems Review of Systems Review of systems:: pertinent systems reviewed and negative unless documented below Meds Home Medications and Allergies Home Medications Medication Instructions Recorded Confirmed Type levothyroxine 50 mcg tablet 50 mcg PO DAILY 06/03/23 03/08/24 History New Prescriptions to Start Prescriptions: Allergies Allergy/AdvReac Type Severity Reaction Status Date / Time sulfamethoxazole Allergy Mild Rash Verified 03/08/24 19:49 [From Bactrim] trimethoprim [From Bactrim] Allergy Mild Rash Verified 03/08/24 19:49 Exam Data for Last 24 hours Vital signs and Labs for Last 24 Hours: Temp Pulse Resp BP Pulse Ox O2 Del Method 98.2 F 94 H 20 110/74 94 L Room Air 03/08/24 19:41 03/08/24 20:08 03/08/24 20:08 03/08/24 20:08 03/08/24 20:08 03/08/24 20:08 Laboratory Results - last 24 hr 03/08/24 19:39: WBC 11.1 H, RBC 4.46, Hgb 14.4, Hct 43.0, MCV 96.3, MCH 32.2 H, MCHC 33.5, RDW 13.4, Plt Count 399, MPV 7.6, Neut % (Auto) 59.5, Lymph % (Auto) 34.0, [place] % (Auto) 3.5, Eos % (Auto) 1.1, Baso % (Auto) 1.9, Neut # (Auto) 6.6, Lymph # (Auto) 3.8, [place] # (Auto) 0.4, Eos # (Auto) 0.1, Baso # (Auto) 0.2, Sodium 139, Potassium 3.6, Chloride 102, Carbon Dioxide 31 H, Anion Gap 9.6, BUN 17, Creatinine 0.80, Estimated Creat Clear 154, Estimated GFR 82, Est GFR ( Amer) 99, Glucose 143 H, Calcium 8.8, Total Bilirubin 0.3, AST 56 H D, ALT 74 D, Alkaline Phosphatase 76, Troponin I < 0.01, NT-Pro-B Natriuret Pep 293 H, Total Protein 7.0, Albumin 3.9, Globulin 3.1, Albumin/Globulin Ratio 1.3 03/08/24 19:49: VBG pH 7.45 H, VBG pCO2 42.6, VBG pO2 46.2 H, VBG HCO3 28.9, VBG Total CO2 30.2 H, VBG O2 Saturation 84.8 H, VBG Base Excess 4.9 H, VBG Lactic Acid 3.0 H 03/08/24 20:23: Urine HCG, Qual Negative I & O for Last 24 hours: Intake & Output 03/05/24 03/06/24 03/07/24 03/08/24 23:59 23:59 23:59 23:59 Weight 123.377 kg Constitutional Constitutional: moderate distress, obese and cooperative *Routine HEENT Exam Head: Present normocephalic Eye: Present EOMI and PERRL ENT: Present mucous membranes moist *Routine Neck Exam Neck: Present supple; Absent lymphadenopathy *Routine Respiratory Exam Respiratory: Present CTA bilaterally, distant breath sounds, diminished air movement, normal respiratory effort and symmetric chest movement *Routine Cardiovascular Exam Cardiovascular: Present RRR *Routine Abdominal Exam Abdominal: Present soft and normoactive bowel sounds; Absent tenderness *Routine Rectal Exam Rectal:: deferred *Routine Genitalia Exam Genitalia:: deferred *Routine Extremities Exam Extremities: Absent cyanosis, clubbing or edema *Routine Skin Exam Skin: Present warm; Absent rash *Routine Neurological Exam Neurological: Present alert, oriented X3, normal reflexes and moving all extremities Routine Psychiatric Exam Psychiatric: Present anxious H&P: Result Imaging and Cardiology EKG: Status: image reviewed by me, Preliminary report and final report Chest x-ray: Status: Preliminary report and final report CT scan - chest: Status: image reviewed by me, Preliminary report and final report Assessment and Plan *Assessment and plan (1) Acute hypoxemic respiratory failure: Status: Acute Category: Medical Code(s): J96.01 - Acute respiratory failure with hypoxia (2) Restrictive lung disease: Status: Acute Category: Medical Code(s): J98.4 - Other disorders of lung (3) Adenopathy, hilar: Status: Acute Category: Medical Code(s): R59.0 - Localized enlarged lymph nodes (4) Asthma: Status: Acute Qualifiers: Asthma complication type: unspecified Asthma persistence: unspecified Asthma severity: unspecified severity Qualified Code(s): J45.909 - Unspecified asthma, uncomplicated Category: Medical Code(s): J45.909 - Unspecified asthma, uncomplicated (5) Obesity (BMI 30-39.9): Status: Acute Category: Medical Code(s): E66.9 - Obesity, unspecified Plan 34-year-old female with past medical history of hypothyroidism, obesity, and asthma, presented to the ED for evaluation on worsening short of breath and chest pain. Patient is stated that symptoms began couple days ago. On arrival patient was tachypneic, satting low 90s on room air. Chest x-ray and labs are unremarkable. However previous CTA from 2 days ago was concerning for pr ominent hilar and right paratracheal lymph nodes. Patient received sepsis workup at the ER. Vancomycin and Unasyn was given. previous respiratory cultures are negative. Due to nonresolution of the symptoms, ED requested admission for inpatient management. I agree for it. Plan: -Dyspnea, with mild hypoxia: Conditions to rule out pulmonary sarcoidosis (multiples bilateral nodules and hilar adenopathy) versus restrictive lung disease versus asthma exacerbation Adenopathy hilar Admit patient for continuous management Pulmonary consult. Appreciate their intake. Patient might need PFT or biopsy for definitive diagnosis Started on DuoNeb DuoNeb every 6 Prednisone 20 mg daily. We deferred further use of antibiotic. Blood culture pending Optimize O2 saturation. O2 as needed by nasal cannula keep saturation over 94. Currently on 2 L Repeat labs in the morning. Obtain TSH Obesity: Encouraged on weight management. May also contribute to hypoventilation sy ndrome Lovenox for DVT prophylaxis. Full code Rounded on patient after nurse practitioner. Personally examined and interviewed patient. Agree with exam findings and care plan as documented.
[2024-03-08] MEDS: VANCOMYCIN HCL 2,000 MG in 0.9 % SODIUM CHLORIDE 500 ML 250 MG IV (22:21)
[2024-03-08] MEDS: IPRATROPIUM/ALBUTEROL 3 ML NEB 9 ML IH (23:25)
[2024-03-08 23:31] LABS: Reflex Lactic Add Lactic Reflex
[2024-03-08] MEDS: predniSONE 20MG TAB 20 MG PO (23:46)
[2024-03-08 23:47] LABS: Lactic Acid Follow Up (RFLX 1) 1.5 mmol/L (0.7-2.1)
[2024-03-09] VITALS (13 sets, daily range): BP systolic 120–143; BP diastolic 70–90; PULSE 75–130; RESP 16–20; TEMP 36.6–37; O2SAT 86–95; BMI 39.3
[2024-03-09 00:01] LABS: Troponin I < 0.01 ng/ml (0.00-0.034)
[2024-03-09] MEDS: IPRATROPIUM/ALBUTEROL 3 ML NEB IH ×4 (00:58→18:17)
[2024-03-09] MEDS: 0.9 % SODIUM CHLORIDE 1000ML 1,000 ML 50 ML IV (01:05)
[2024-03-09] MEDS: ACETAMINOPHEN 325MG TAB 650 MG PO ×3 (01:11→20:33)
[2024-03-09 03:02] LABS: Troponin I < 0.01 ng/ml (0.00-0.034)
--- NOTE | 2024-03-09 04:42 | PC.NURSE ---
Patient alert and oriented x4 since admission. Bilateral wheezes throughout upon auscultation. Tolerating 2L NC. Patient has rested well through the night and has not expressed any needs. Call light within reach.
[2024-03-09 06:57] LABS: Basophils # 0.1 K/mm3 (0-0.2); Basophils % 0.5 % (0.1-2.0); Hemoglobin 14.9 g/dL (12.2-16.2); Lymphocytes # 1.1 K/mm3 (0.7-4.5); Lymphocytes % 8.5 % (10-50); Mean Corpuscular HGB Conc 33.2 g/dL (31.8-35.4); Mean Corpuscular Hemoglobin 32.8 pg (27.0-31.2); Mean Platelet Volume 7.7 fl (7.4-10.4); Monocytes # 0.2 K/mm3 (0.1-1.0); Monocytes % 1.3 % (1.7-9.3); Neutrophils # 11.9 K/mm3 (1.8-7.8); Neutrophils % 89.7 % (37.0-80.0); Platelet Count 408 K/mm3 (142-424); Red Blood Count 4.55 M/mm3 (4.20-5.40); Red Cell Distribution Width 13.2 % (11.5-17.5); White Blood Count 13.3 K/mm3 (4.8-10.8)
[2024-03-09 07:06] LABS: MANUAL DIFFERENTIAL MANUAL DIFFERENTIAL (MANUAL DIFF)
[2024-03-09 07:15] LABS: Chloride 103 mmol/L (98-107); Potassium 4.1 mmoL/L (3.5-5.1); Sodium 138 mmol/L (136-145)
[2024-03-09 07:17] LABS: Blood Urea Nitrogen 13 mg/dl (7-17); Creatinine Clearance Estimated 210 mL/min (50-200); Estimated Glomerular Filt Rate 114 ml/min (>60); GFR (African American) 138 ML/MIN (>60)
[2024-03-09 07:18] LABS: Alanine Aminotransferase 98 U/L (12-78); Albumin Level 4.1 g/dl (3.5-5.0); Albumin/Globulin Ratio 1.3 (1.1-1.8); Alkaline Phosphatase 86 U/L (38-126); Anion Gap 18.1 mEq/L (5-15); Aspartate Amino Transferase 66 U/L (14-36); Bilirubin,Total 0.4 mg/dl (0.2-1.3); Carbon Dioxide 21 mmol/L (22.0-30.0); Globulin 3.1 g/dL (1.3-3.2); Glucose 158 mg/dl (74-100); Magnesium 2.4 mg/dl (1.6-2.3); Total Protein,Serum 7.2 g/dl (6.3-8.2)
--- NOTE | 2024-03-09 07:37 | P.CONPHA_ITS ---
Pharmacy Consult Date: 03/09/24 Time: 07:37 Referring provider: DR. HERNANDEZ Reason for Consult:: VANCOMYCIN CONSULT Allergies Allergy/AdvReac Type Severity Reaction Status Date / Time sulfamethoxazole Allergy Mild Rash Verified 03/08/24 19:49 [From Bactrim] trimethoprim [From Bactrim] Allergy Mild Rash Verified 03/08/24 19:49 Home Medications Medication Instructions Recorded Confirmed Type levothyroxine 50 mcg tablet 50 mcg PO DAILY Supplement 06/03/23 03/08/24 History New Prescriptions to Start Prescriptions: Height: 1.6 m Weight: 100.698 kg Laboratory Results:: Laboratory Results - last 24 hr 03/08/24 19:39: WBC 11.1 H, RBC 4.46, Hgb 14.4, Hct 43.0, MCV 96.3, MCH 32.2 H, MCHC 33.5, RDW 13.4, Plt Count 399, MPV 7.6, Neut % (Auto) 59.5, Lymph % (Auto) 34.0, [place] % (Auto) 3.5, Eos % (Auto) 1.1, Baso % (Auto) 1.9, Neut # (Auto) 6.6, Lymph # (Auto) 3.8, [place] # (Auto) 0.4, Eos # (Auto) 0.1, Baso # (Auto) 0.2, Sodium 139, Potassium 3.6, Chloride 102, Carbon Dioxide 31 H, Anion Gap 9.6, BUN 17, Creatinine 0.80, Estimated Creat Clear 154, Estimated GFR 82, Est GFR ( Amer) 99, Glucose 143 H, Calcium 8.8, Total Bilirubin 0.3, AST 56 H D, ALT 74 D, Alkaline Phosphatase 76, Troponin I < 0.01, NT-Pro-B Natriuret Pep 293 H, Total Protein 7.0, Albumin 3.9, Globulin 3.1, Albumin/Globulin Ratio 1.3 03/08/24 19:49: VBG pH 7.45 H, VBG pCO2 42.6, VBG pO2 46.2 H, VBG HCO3 28.9, VBG Total CO2 30.2 H, VBG O2 Saturation 84.8 H, VBG Base Excess 4.9 H, VBG Lactic Acid 3.0 H 03/08/24 20:23: Urine HCG, Qual Negative 03/08/24 23:19: Lactate 1.5, Troponin I < 0.01 03/09/24 02:24: Troponin I < 0.01 03/09/24 06:25: WBC 13.3 H, RBC 4.55, Hgb 14.9, Hct 45.0, MCV 99.0, MCH 32.8 H, MCHC 33.2, RDW 13.2, Plt Count 408, MPV 7.7, Neut % (Auto) 89.7 H, Lymph % (Auto) 8.5 L, [place] % (Auto) 1.3 L, Eos % (Auto) 0.0 L, Baso % (Auto) 0.5, Neut # (Auto) 11.9 H, Lymph # (Auto) 1.1, [place] # (Auto) 0.2, Eos # (Auto) 0.0, Baso # (Auto) 0.1, Sodium 138, Potassium 4.1, Chloride 103, Carbon Dioxide 21 L, Anion Gap 18.1 H, BUN 13, Creatinine 0.60 D, Estimated Creat Clear 210, Estimated GFR 114, Est GFR ( Amer) 138 D, Glucose 158 H, Calcium 9.0, Magnesium 2.4 H, Total Bilirubin 0.4, AST 66 H, ALT 98 H D, Alkaline Phosphatase 86, Total Protein 7.2, Albumin 4.1, Globulin 3.1, Albumin/Globulin Ratio 1.3 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: 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 (Updated 03/09/24 @ 03:11 by Vasquez Murillo APRN) Deviated nasal septum Cyst of bone of right foot Asthma Thyroid disease Depression Anxiety Migraine Assessment and Plan Assessment and plan all Dx Assessment and Plan for all problems:: Pharmacokinetic dosing service = Objective: Patient: Floor: Age: 36 yo Serum creatinine: 0.6 mg/dL Height: 63.0 Inches Weight (kg): 100 Assessment: IBW (kg): 52.40 Dosing wt(kg): 100 Estimated Creatinine clearance (ml/min): 107.2 CRCL method: Cockcroft and Gault using ibw(default). Drug selected: Vancomycin Loading dose (mg): 0 Vd (liters): 80.0 (factor used: 0.8 L/kg) Brayden (hr-1): 0.093 Half life (hrs): 7.45 Recommended dose: 2000 mg Interval: 12 hrs Infusion time (hrs): 2.0 Predicted peak (mcg/mL): 33.9 Predicted trough (mcg/mL): 13.38 Total body weight is being used for vancomycin dosing. Recommendations: Give Vancomycin 2000 mg q 12 hrs with an expected Cpeak of 33.9 mcg/ml and an expected Ctrough of 13.38 mcg/ml ----Vanco only - ignore for aminoglycosides----- CLvanco= 7.44 L/hr AUC 0-24 /SB Data: SB 0.5 mcg/mL: AUC/SB: 1075.3 SB 1.0 mcg/mL: AUC/SB: 537.6 --------- SB 1.5 mcg/mL: AUC/BS: 358.4 SB 2.0 mcg/mL: AUC/SB: 268.8
--- NOTE | 2024-03-09 08:10 | PC.NURSE ---
TECH NOTE; NURSE AND PHYSICIAN NOTIFIED OF ROOM AIR SAT OF 86 FOR 0800 VITAL SIGNS Carl MCGARRY, SRNA
[2024-03-09 08:16] LABS: Thyroid Stimulating Hormone 0.95 uIU/mL (0.465-4.68)
[2024-03-09 09:02] LABS: Lymphocytes % 5 % (10-50); Monocytes % 1 % (2-9); Neutrophils % 94 % (42-76); Total Cells Counted 100
[2024-03-09] MEDS: CEFEPIME HCL 2 GM in 0.9 % SODIUM CHLORIDE 100 ML IV (09:08)
[2024-03-09] MEDS: predniSONE 20MG TAB 20 MG PO (09:09)
[2024-03-09] MEDS: LEVOTHYROXINE 50MCG (0.05MG) TAB 50 MCG PO (09:09)
[2024-03-09] MEDS: ENOXAPARIN 40MG/0.4ML SYRINGE 40 MG SQ (09:09)
[2024-03-09 09:10] LABS: Macrocytosis 1+; Platelet Estimate Normal
--- NOTE | 2024-03-09 09:41 | P.CONS_ITS ---
History of Present Illness History of present illness: Ms. Correa is a 34-year-old male with a reported history of hypothyroidism obesity asthma presented to ER with worsening respiratory distress chest comfort admitted to the hospital further management pulmonary was called for further evaluation. Patient recently presented to the ED on with similar symptoms discharged home in azithromycin and prednisone with no significant improvement in her symptoms. Patient admits continued worsening symptoms cough and productive phlegm which is improving after this amidsison. She also admits prior episodes with a Tmax of 103. Denies any known sick contacts. Works at [employer]. Prior history of asthma, using albuterol on as-needed basis stable at baseline not needing her albuterol in the last 4 years prior to this episode of worsening respiratory distress [facility] Disclaimer: The information contained in this section may have been updated after the patient was seen, as this information can be updated by other users. 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 (Updated 03/09/24 @ 03:11 by Vasquez Murillo APRN) Deviated nasal septum Cyst of bone of right foot Asthma Thyroid disease Depression Anxiety Migraine Surgical History (Updated 03/08/24 @ 23:42 by Annamarie Youngblood RN) History of exploratory laparotomy History of tubal ligation History of hysterectomy History of cholecystectomy Family History (Updated 03/08/24 @ 23:41 by Annamarie Youngblood RN) Other Heart attack Stroke Social History (Updated 03/08/24 @ 23:43 by Annamarie Youngblood RN) Smoking Status: Never smoker alcohol intake: never substance use type: denies use current occupational status: unemployed Travel in the last 8 weeks: None household members: spouse and family housing: house current occupational exposures/hazards: No caffeine: Yes Review of Systems Constitutional Constitutional: Reports anorexia, Reports body ache(s) and Reports fatigue Eyes Eyes: Denies eye discharge, Denies dry eyes, Denies irritation and Denies itchy eyes ENT Ears, Nose, Mouth, and Throat: Denies epistaxis, Denies facial pain, Denies lip swelling and Denies throat swelling *Cardiovascular Cardiovascular: Reports dyspnea and Reports dyspnea on exertion *Respiratory Respiratory: Reports change in phlegm color, Reports chest congestion, Reports cough, Reports dyspnea, Reports dyspnea on exertion, Reports excessive phlegm production and Denies wheezing *Gastrointestinal Gastrointestinal: Denies abdominal pain, Denies belching and Denies cramping *Musculoskeletal Musculoskeletal: Reports back pain, Reports myalgias and Reports other (No small joint swelling or Pain) Psychiatric Psychiatric: Denies homicidal ideation and Denies suicidal ideation Endocrine Endocrine: Reports fatigue and Denies heat intolerance Hematologic/Lymphatic Hematologic/Lymphatic: Denies easy bleeding and Denies lymphadenopathy Allergic/Immunologic Allergic/Immunologic: Denies itchy eyes, Denies lip swelling, Denies throat swelling and Denies wheezing Pulmonology Exam Inpatient Vital signs and Labs for Last 24 Hours: Temp Pulse Resp BP Pulse Ox O2 Del Method O2 Flow Rate 98.6 F 113 H 20 143/78 H 86 L Nasal Cannula 3 03/09/24 08:00 03/09/24 08:00 03/09/24 08:00 03/09/24 08:00 03/09/24 08:09 03/09/24 09:00 03/09/24 09:00 Laboratory Results - last 24 hr 03/08/24 19:39: WBC 11.1 H, RBC 4.46, Hgb 14.4, Hct 43.0, MCV 96.3, MCH 32.2 H, MCHC 33.5, RDW 13.4, Plt Count 399, MPV 7.6, Neut % (Auto) 59.5, Lymph % (Auto) 34.0, [place] % (Auto) 3.5, Eos % (Auto) 1.1, Baso % (Auto) 1.9, Neut # (Auto) 6.6, Lymph # (Auto) 3.8, [place] # (Auto) 0.4, Eos # (Auto) 0.1, Baso # (Auto) 0.2, Sodium 139, Potassium 3.6, Chloride 102, Carbon Dioxide 31 H, Anion Gap 9.6, BUN 17, Creatinine 0.80, Estimated Creat Clear 154, Estimated GFR 82, Est GFR ( Amer) 99, Glucose 143 H, Calcium 8.8, Total Bilirubin 0.3, AST 56 H D, ALT 74 D, Alkaline Phosphatase 76, Troponin I < 0.01, NT-Pro-B Natriuret Pep 293 H, Total Protein 7.0, Albumin 3.9, Globulin 3.1, Albumin/Globulin Ratio 1.3 03/08/24 19:49: VBG pH 7.45 H, VBG pCO2 42.6, VBG pO2 46.2 H, VBG HCO3 28.9, VBG Total CO2 30.2 H, VBG O2 Saturation 84.8 H, VBG Base Excess 4.9 H, VBG Lactic Acid 3.0 H 03/08/24 20:23: Urine HCG, Qual Negative 03/08/24 23:19: Lactate 1.5, Troponin I < 0.01 03/09/24 02:24: Troponin I < 0.01 03/09/24 06:25: WBC 13.3 H, RBC 4.55, Hgb 14.9, Hct 45.0, MCV 99.0, MCH 32.8 H, MCHC 33.2, RDW 13.2, Plt Count 408, MPV 7.7, Neut % (Auto) 89.7 H, Lymph % (Auto) 8.5 L, [place] % (Auto) 1.3 L, Eos % (Auto) 0.0 L, Baso % (Auto) 0.5, Neut # (Auto) 11.9 H, Lymph # (Auto) 1.1, [place] # (Auto) 0.2, Eos # (Auto) 0.0, Baso # (Auto) 0.1, Total Counted 100, Neutrophils % (Manual) 94 H, Lymphocytes % (Manual) 5 L, Monocytes % (Manual) 1 L, Platelet Estimate Normal, Macrocytosis 1+, Sodium 138, Potassium 4.1, Chloride 103, Carbon Dioxide 21 L, Anion Gap 18.1 H, BUN 13, Creatinine 0.60 D, Estimated Creat Clear 210, Estimated GFR 114, Est GFR ( Amer) 138 D, Glucose 158 H, Calcium 9.0, Magnesium 2.4 H, Total Bilirubin 0.4, AST 66 H, ALT 98 H D, Alkaline Phosphatase 86, Total Protein 7.2, Albumin 4.1, Globulin 3.1, Albumin/Globulin Ratio 1.3, TSH 0.95 I & O for Labs for Last 24 Hours: Intake & Output 03/06/24 03/07/24 03/08/24 03/09/24 23:59 23:59 23:59 23:59 Intake Total 1194 / 1194 Output Total 0 / 0 Balance 1194 / 1194 Weight 272 lb 222 lb Constitutional: Present moderate distress Head: Present normocephalic and atraumatic ENT: Present normal exam, normal oropharynx and mucous membranes moist Neck: Present normal inspection and full ROM Respiratory: Present respiratory distress and able to speak in complete sentences; Absent rhonchi, wheezes or crackles Cardiac: Present S1/S2, Tachycardia and radial pulses present GI: Present soft and distention; Absent tenderness or guarding Rectal (female): Present deferred (female): Present deferred Skin: Present intact; Absent cyanosis or jaundice Neuro: Present alert, awake and oriented x 3 Extremities: Present normal inspection; Absent clubbing or cyanosis Psychiatric: Present normal affect and cooperative Meds Home Medications and Allergies Home Medications Medication Instructions Recorded Confirmed Type levothyroxine 50 mcg tablet 50 mcg PO DAILY 06/03/23 03/08/24 History New Prescriptions to Start Prescriptions: Allergies Allergy/AdvReac Type Severity Reaction Status Date / Time sulfamethoxazole Allergy Mild Rash Verified 03/08/24 19:49 [From Bactrim] trimethoprim [From Bactrim] Allergy Mild Rash Verified 03/08/24 19:49 Results Laboratory Findings 03/09/24 06:25 03/09/24 06:25 Abnormal lab findings: Abnormal Labs 03/08/24 03/08/24 03/09/24 19:39 19:49 06:25 WBC 11.1 H 13.3 H MCH 32.2 H 32.8 H Neut % (Auto) 89.7 H Lymph % (Auto) 8.5 L [place] % (Auto) 1.3 L Eos % (Auto) 0.0 L Neut # (Auto) 11.9 H Neutrophils % (Manual) 94 H Lymphocytes % (Manual) 5 L Monocytes % (Manual) 1 L VBG pH 7.45 H VBG pO2 46.2 H VBG Total CO2 30.2 H VBG O2 Saturation 84.8 H VBG Base Excess 4.9 H VBG Lactic Acid 3.0 H Carbon Dioxide 31 H 21 L Anion Gap 18.1 H Glucose 143 H 158 H Magnesium 2.4 H AST 56 H D 66 H ALT 98 H D NT-Pro-B Natriuret Pep 293 H Assessment and Plan *Assessment and plan (1) Acute hypoxemic respiratory failure: Status: Acute Category: Medical Code(s): J96.01 - Acute respiratory failure with hypoxia (2) Atypical pneumonia: Status: Acute Category: Medical Code(s): J18.9 - Pneumonia, unspecified organism Plan Ms. Correa is a 34-year-old male with a reported history of hypothyroidism obesity asthma presented to ER with worsening respiratory distress chest comfort admitted to the hospital further management pulmonary was called for further evaluation. Patient recently presented to the ED on with similar symptoms discharged home in azithromycin and prednisone with no significant improvement in her symptoms. Patient admits continued worsening symptoms cough and productive phlegm which is improving after this amidsison. She also admits prior episodes with a Tmax of 103. Denies any known sick contacts. 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 Prior history of asthma, using albuterol on as-needed basis stable at baseline not needing her albuterol in the last 4 years prior to this episode of worsening respiratory distress Afebrile. Hemodynamically stable. Hypoxic and tachycardic. Neutrophilic predominant leukocytosis. Complaints of respiratory viral PCR panel negative upon presentation to ER on 02/28/2024 Chest x-ray admission reviewed, bilateral clear lung angel with no consolidation/airspace disease noted. CTA from 03/06/24 no evidence of pulmonary embolism. Nonspecific diffuse micronodular tree-in-bud opacities with no specific distribution concerning for atypical infection. Lymphadenopathy also noted can well be reactive. No recent prior CT chest imaging suboptimal for review. Appeared to be moderate respiratory distress. No significant wheezing noted on auscultation. Plan: Follow with comprehensive respiratory viral PCR panel Follow-up with sputum Gram stain, AFB, fungal stain cultures Follow with CRP procalcitonin and LDH Follow-up with urine histoplasma antigen strep and Legionella antigens. Antibiotics can be weaned to Bactrim and levofloxacin from pulmonary standpoint pending cultures and lab work. DuoNebs every 6 and Pulmicort every 12 scheduled. Discontinue steroids pending work Will hold off on bronchoscopy pending workup and clinical followup # Thank you for involving pulmonary in this patient care. Will continue to follow.
[2024-03-09] MEDS: VANCOMYCIN HCL 2,000 MG in 0.9 % SODIUM CHLORIDE 250 ML 125 MG IV (10:28)
[2024-03-09 10:36] LABS: Adenovirus,PCR Not Detected (NotDetected); Bordetella Pertussis Not Detected (NotDetected); Chlamydophila Pneumoniae, PCR Not Detected (NotDetected); Coronavirus 19, PCR Not Detected (NotDetected); Coronavirus 229E Not Detected (NotDetected); Coronavirus NL63 Not Detected (NotDetected); Coronavirus OC43 Not Detected (NotDetected); Coronovirus HKU1,PCR Not Detected (NotDetected); Human Metapneumovirus Not Detected (NotDetected); Influenza A, PCR Not Detected (NotDetected); Influenza AH1, 2009 Not Detected (NotDetected); Influenza AH1, PCR Not Detected (NotDetected); Influenza AH3,PCR Not Detected (NotDetected); Influenza B, PCR Not Detected (NotDetected); Mycoplasma Pneumoniae, PCR Not Detected (NotDetected); Parainfluenza 1, PCR Not Detected (NotDetected); Parainfluenza 2, PCR Not Detected (NotDetected); Parainfluenza 3, PCR Not Detected (NotDetected); Parainfluenza 4, PCR Not Detected (NotDetected); Respiratory Syncytial Virus Not Detected (NotDetected); Rhinovirus/Enterovirus Not Detected (NotDetected)
[2024-03-09 10:58] LABS: Lactate Dehydrogenase 283 U/L (313-618)
[2024-03-09 11:03] LABS: C-Reactive Protein 15.8 mg/L (0-4)
[2024-03-09 11:16] LABS: Procalcitonin 0.093 ng/mL (0.0-2.0)
--- NOTE | 2024-03-09 14:02 | P.PN_ITS ---
Subjective *Date: 03/09/24 *Time: 14:16 Interval history: Patient still feeling short of breath this morning. Denies any chest pain or nausea. No confusion. Cough nonproductive this morning. 86% on room air. Afebrile overnight. Medical Exam Vital signs and Labs for Last 24 Hours: Vital Signs Temp Pulse Pulse Resp BP BP Pulse Ox 03/09/24 13:19 107 H 03/09/24 13:19 107 H 03/09/24 13:19 93 L 03/09/24 13:00 03/09/24 12:00 98.5 F 97 H 18 125/76 92 L 03/09/24 11:00 03/09/24 09:00 03/09/24 08:09 86 L 03/09/24 08:00 03/09/24 08:00 110 H 03/09/24 08:00 98.6 F 113 H 20 143/78 H 91 L 03/09/24 06:41 03/09/24 06:07 106 H 03/09/24 06:07 112 H 03/09/24 06:07 91 L 03/09/24 04:58 03/09/24 04:00 97.9 F 98 H 16 133/76 93 L 03/09/24 04:00 107 H 03/09/24 02:48 03/09/24 01:11 03/09/24 00:59 98 H 03/09/24 00:59 102 H 03/09/24 00:29 84 03/09/24 00:00 98.3 F 75 18 126/90 95 03/08/24 23:56 95 03/08/24 23:26 92 H 03/08/24 23:26 96 H 03/08/24 23:26 95 03/08/24 22:49 97.9 F 82 20 126/90 03/08/24 22:38 82 20 126/90 96 03/08/24 22:31 126/90 03/08/24 22:00 124/88 03/08/24 21:30 80 127/88 93 L 03/08/24 21:30 80 20 127/88 93 L 03/08/24 21:00 85 128/90 93 L 03/08/24 20:30 93 H 135/83 98 03/08/24 20:08 94 H 20 110/74 94 L 03/08/24 20:00 89 110/74 94 L 03/08/24 19:47 89 03/08/24 19:41 98.2 F 103 H 16 147/97 H 98 O2 Del Method O2 Flow Rate 03/09/24 13:19 03/09/24 13:19 03/09/24 13:19 Nasal Cannula 2 03/09/24 13:00 Nasal Cannula 2 03/09/24 12:00 Nasal Cannula 2 03/09/24 11:00 Room Air 03/09/24 09:00 Nasal Cannula 3 03/09/24 08:09 Room Air 03/09/24 08:00 Nasal Cannula 2 03/09/24 08:00 03/09/24 08:00 Nasal Cannula 2 03/09/24 06:41 Nasal Cannula 2 03/09/24 06:07 03/09/24 06:07 03/09/24 06:07 Room Air 2 03/09/24 04:58 Nasal Cannula 2 03/09/24 04:00 Nasal Cannula 2 03/09/24 04:00 03/09/24 02:48 Nasal Cannula 2 03/09/24 01:11 Nasal Cannula 2 03/09/24 00:59 03/09/24 00:59 03/09/24 00:29 03/09/24 00:00 Room Air 03/08/24 23:56 Room Air 03/08/24 23:26 03/08/24 23:26 03/08/24 23:26 Room Air 03/08/24 22:49 Room Air 03/08/24 22:38 Room Air 03/08/24 22:31 03/08/24 22:00 03/08/24 21:30 03/08/24 21:30 Room Air 03/08/24 21:00 03/08/24 20:30 03/08/24 20:08 Room Air 03/08/24 20:00 03/08/24 19:47 03/08/24 19:41 Room Air Intake and Output 03/08/24 03/09/24 03/09/24 23:59 07:59 15:59 Intake Total 714 / 1494 780 / 1494 Output Total 0 / 0 Balance 714 / 1494 780 / 1494 Intake: Intake, Oral Amount 780 / 780 Intake, Total IV Amount 714 / 714 0.9 % Sodium Chloride 1000ML 1, 714 / 714 000 ml @ 50 mls/hr IV .Q20H [facility] Rx#:[id number] Output: Output, Urine Amount 0 / 0 Other: Number of Unmeasured Voids 1 Weight 123.377 kg 100.698 kg Patient Weight 03/09/24 23:59 Weight 100.698 kg Laboratory Results - last 24 hr 03/08/24 19:39: WBC 11.1 H, RBC 4.46, Hgb 14.4, Hct 43.0, MCV 96.3, MCH 32.2 H, MCHC 33.5, RDW 13.4, Plt Count 399, MPV 7.6, Neut % (Auto) 59.5, Lymph % (Auto) 34.0, [place] % (Auto) 3.5, Eos % (Auto) 1.1, Baso % (Auto) 1.9, Neut # (Auto) 6.6, Lymph # (Auto) 3.8, [place] # (Auto) 0.4, Eos # (Auto) 0.1, Baso # (Auto) 0.2, Sodium 139, Potassium 3.6, Chloride 102, Carbon Dioxide 31 H, Anion Gap 9.6, BUN 17, Creatinine 0.80, Estimated Creat Clear 154, Estimated GFR 82, Est GFR ( Amer) 99, Glucose 143 H, Calcium 8.8, Total Bilirubin 0.3, AST 56 H D, ALT 74 D, Alkaline Phosphatase 76, Troponin I < 0.01, NT-Pro-B Natriuret Pep 293 H, Total Protein 7.0, Albumin 3.9, Globulin 3.1, Albumin/Globulin Ratio 1.3 03/08/24 19:49: VBG pH 7.45 H, VBG pCO2 42.6, VBG pO2 46.2 H, VBG HCO3 28.9, VBG Total CO2 30.2 H, VBG O2 Saturation 84.8 H, VBG Base Excess 4.9 H, VBG Lactic Acid 3.0 H 03/08/24 20:23: Urine HCG, Qual Negative 03/08/24 23:19: Lactate 1.5, Troponin I < 0.01 03/09/24 02:24: Troponin I < 0.01 03/09/24 06:25: WBC 13.3 H, RBC 4.55, Hgb 14.9, Hct 45.0, MCV 99.0, MCH 32.8 H, MCHC 33.2, RDW 13.2, Plt Count 408, MPV 7.7, Neut % (Auto) 89.7 H, Lymph % (Auto) 8.5 L, [place] % (Auto) 1.3 L, Eos % (Auto) 0.0 L, Baso % (Auto) 0.5, Neut # (Auto) 11.9 H, Lymph # (Auto) 1.1, [place] # (Auto) 0.2, Eos # (Auto) 0.0, Baso # (Auto) 0.1, Total Counted 100, Neutrophils % (Manual) 94 H, Lymphocytes % (Manual) 5 L, Monocytes % (Manual) 1 L, Platelet Estimate Normal, Macrocytosis 1+, Sodium 138, Potassium 4.1, Chloride 103, Carbon Dioxide 21 L, Anion Gap 18.1 H, BUN 13, Creatinine 0.60 D, Estimated Creat Clear 210, Estimated GFR 114, Est GFR ( Amer) 138 D, Glucose 158 H, Calcium 9.0, Magnesium 2.4 H, Total Bilirubin 0.4, AST 66 H, ALT 98 H D, Alkaline Phosphatase 86, Lactate Dehydrogenase 283 L, C-Reactive Protein 15.8 H, Total Protein 7.2, Albumin 4.1, Globulin 3.1, Albumin/Globulin Ratio 1.3, Procalcitonin 0.093, TSH 0.95 03/09/24 10:28: Chlamy pneumoniae PCR Not detected, Adenovirus (PCR) Not detected, B. pertussis DNA (PCR) Not detected, Coronavirus OC43 (PCR) Not detected, Coronavirus HKU1 (PCR) Not detected, Coronavirus 229E (PCR) Not detected, SARS-CoV-2 (PCR) Not detected, Coronavirus NL63 (PCR) Not detected, Human Metapneumovir PCR Not detected, Influenza A (H1) PCR Not detected, Influ A (H1N1/09) PCR Not detected, Influenza A (H3) PCR Not detected, Influenza Type A (PCR) Not detected, Influenza Type B (PCR) Not detected, M. pneumoniae (PCR) Not detected, Parainfluenza 1 (PCR) Not detected, Parainfluenza 2 (PCR) Not detected, Parainfluenza 3 (PCR) Not detected, Parainfluenza 4 (PCR) Not detec norma, RSV (PCR) Not detected, Entero/Rhino (PCR) Not detected I & O for Labs for Last 24 Hours: Intake & Output 03/06/24 03/07/24 03/08/24 03/09/24 23:59 23:59 23:59 23:59 Intake Total 1494 / 1494 Output Total 0 / 0 Balance 1494 / 1494 Weight 123.377 kg 100.698 kg Microbiology Reports for the Last 24 Hours: Microbiology 03/09/24 00:12 Sputum - Expectorated Sputum Gram Stain - Final 03/09/24 00:12 Sputum - Expectorated Sputum ROGELIO Preparation - Final Constitutional: Present no acute distress, obese and cooperative Head: Present atraumatic and normocephalic ENT: Present normal exam Respiratory: Present rhonchi, crackles and normal respiratory effort; Absent wheezes Cardiac: Present Reg Rate and Rhythm GI: Present soft and normal bowel sounds; Absent distention or tenderness Extremities: Present normal inspection and full ROM Skin: Present intact; Absent erythema Neuro: Present Grossly Intact, alert, awake, oriented x 3 and moves all extremities Assessment and Plan *Assessment and plan (1) Atypical pneumonia: Status: Acute Category: Medical Code(s): J18.9 - Pneumonia, unspecified organism (2) Acute hypoxemic respiratory failure: Status: Acute Category: Medical Code(s): J96.01 - Acute respiratory failure with hypoxia (3) Restrictive lung disease: Status: Acute Category: Medical Code(s): J98.4 - Other disorders of lung (4) Adenopathy, hilar: Status: Acute Category: Medical Code(s): R59.0 - Localized enlarged lymph nodes (5) Asthma: Status: Acute Qualifiers: Asthma complication type: unspecified Asthma persistence: unspecified Asthma severity: unspecified severity Qualified Code(s): J45.909 - Unspecified asthma, uncomplicated Category: Medical Code(s): J45.909 - Unspecified asthma, uncomplicated (6) Obesity (BMI 30-39.9): Status: Acute Category: Medical Code(s): E66.9 - Obesity, unspecified Plan 34-year-old female with past medical history of hypothyroidism, obesity, and asthma, presented to the ED for evaluation on worsening short of breath and chest pain. Patient is stated that symptoms began couple days ago. On arrival patient was tachypneic, satting low 90s on room air. Chest x-ray and labs are unremarkable. However previous CTA from 2 days ago was concerning for prominent hilar and right paratracheal lymph nodes. Patient received sepsis workup at the ER. Vancomycin and Unasyn was given. previous respiratory cultures are negative. Due to nonresolution of the symptoms, ED requested admission for inpatient management. Medicine agreed to admit. Stable this morning but still requiring oxygen. Pulmonology consulted and evaluating today. Antibiotics adjusted today. Continues to require inpatient management. Problems addressed as follows: Atypical pneumonia Acute hypoxemic respiratory failure - Discussed case with pulmonology, reviewed their note today. Comprehensive respiratory panel negative. Recommend obtaining sputum with Gram stain, AFB, fungal stain cultures. Pulmonology ordered CRP, procalcitonin, LDH. - Will follow urine histo antigen and Legionella antigens. Antibiotics weaned to Levaquin for pulmonary atypical pathogens. - Continue DuoNebs every 6 hours and Pulmicort every 12 hours. Discontinue steroids pending further workup. May necessitate bronchoscopy in the future but holding at this time. -Supplemental oxygen for goal sats greater than 90%. Currently on 2 L. -White cell count still elevated at 13. Kidney function electrolytes normal with sodium 138, potassium 4.1, BUN 13, creatinine 0.6. Magnesium 2.4. I have ordered Repeat CBC, CMP, magnesium for the morning. Hypothyroid: cont. levothyroxine 50 mcg daily; tsh ordered for the morning Obesity: Encouraged on weight management. May also contribute to hypoventilation syndrome Lovenox for DVT prophylaxis. Full code Regular diet
[2024-03-09] MEDS: LEVOFLOXACIN/D5W 750 MG/150 ML 750 MG/150 ML PIGGYBACK 100 MG IV (15:27)
--- NOTE | 2024-03-09 17:24 | PC.NURSE ---
Patient is currently sitting up in bed with family at bedside. Patient has been in good spirits throughout the shift. Antibiotics have been given throughout the shift per NOV. Sputum sample and swab was collected this morning and sent to lab. Patient is on 2L O2 via NC. When ambulating to the bathroom, patient becomes short of breath and heart rate becomes tachycardic. maintenance fluids have been d/c per Dr. Melchor. Patient reports no current pain or complaints. Call light is within reach and patient is resting.
[2024-03-09] MEDS: BUDESONIDE 0.5MG/2ML NEB 0.5 MG IH (18:17)
[2024-03-09] MEDS: PANTOPRAZOLE 40MG TABLET 40 MG PO (20:00)
--- NOTE | 2024-03-09 20:11 | PC.NURSE ---
patient was gave an incentive spirometer and educated on how to use it and goals to reach. Patient verbalized understanding and demonstrated proper use.
--- NOTE | 2024-03-09 23:20 | PC.NURSE ---
patient placed on 0.5L NC r/t O2 <90.
[2024-03-10] VITALS (10 sets, daily range): BP systolic 116–135; BP diastolic 67–86; PULSE 67–121; RESP 15–22; TEMP 36.7–36.9; O2SAT 90–95; BMI 39.3
[2024-03-10] MEDS: IPRATROPIUM/ALBUTEROL 3 ML NEB IH ×3 (00:08→11:05)
[2024-03-10] MEDS: BUDESONIDE 0.5MG/2ML NEB 0.5 MG IH (06:18)
[2024-03-10] MEDS: LEVOTHYROXINE 50MCG (0.05MG) TAB 50 MCG PO (06:30)
[2024-03-10] MEDS: ACETAMINOPHEN 325MG TAB 650 MG PO (06:46)
[2024-03-10] MEDS: ENOXAPARIN 40MG/0.4ML SYRINGE 40 MG SQ (08:03)
--- NOTE | 2024-03-10 08:27 | PC.NURSE ---
pt is 90% on room air at rest.
[2024-03-10 08:29] LABS: MANUAL DIFFERENTIAL MANUAL DIFFERENTIAL (MANUAL DIFF)
[2024-03-10 08:41] LABS: Chloride 105 mmol/L (98-107); Sodium 137 mmol/L (136-145)
[2024-03-10 08:42] LABS: Potassium 3.9 mmoL/L (3.5-5.1)
[2024-03-10 08:44] LABS: Blood Urea Nitrogen 16 mg/dl (7-17); Creatinine Clearance Estimated 180 mL/min (50-200); Estimated Glomerular Filt Rate 96 ml/min (>60); GFR (African American) 116 ML/MIN (>60)
[2024-03-10 08:45] LABS: Anion Gap 12.9 mEq/L (5-15); Basophils # 0.1 K/mm3 (0-0.2); Basophils % 0.8 % (0.1-2.0); Calcium 8.9 mg/dl (8.4-10.2); Carbon Dioxide 23 mmol/L (22.0-30.0); Eosinophils % 0.4 % (0.1-12.0); Glucose 113 mg/dl (74-100); Hematocrit 41.3 % (37.0-47.0); Hemoglobin 13.8 g/dL (12.2-16.2); Lymphocytes % 23.7 % (10-50); Mean Corpuscular HGB Conc 33.5 g/dL (31.8-35.4); Mean Corpuscular Hemoglobin 32.6 pg (27.0-31.2); Mean Corpuscular Volume 97.3 fl (81-99); Mean Platelet Volume 7.3 fl (7.4-10.4); Monocytes # 0.4 K/mm3 (0.1-1.0); Monocytes % 3.5 % (1.7-9.3); Neutrophils % 71.6 % (37.0-80.0); Platelet Count 375 K/mm3 (142-424); Red Blood Count 4.25 M/mm3 (4.20-5.40); Red Cell Distribution Width 13.6 % (11.5-17.5); White Blood Count 12.5 K/mm3 (4.8-10.8)
--- NOTE | 2024-03-10 09:51 | EXP.PULM.PN ---
Subjective *Date: 03/10/24 *Time: 12:00 Interval history: No acute respiratory events overnight. Patient admits continued improvement in her respiratory symptoms. Admits improving cough and productive phlegm. Pulmonology Exam Inpatient Vital signs and Labs for Last 24 Hours: Temp Pulse Resp BP Pulse Ox O2 Del Method O2 Flow Rate 98.0 F 84 15 135/80 93 L Room Air 1 03/10/24 07:59 03/10/24 07:59 03/10/24 07:59 03/10/24 07:59 03/10/24 07:59 03/10/24 09:00 03/10/24 08:00 Laboratory Results - last 24 hr 03/09/24 06:25: Lactate Dehydrogenase 283 L, C-Reactive Protein 15.8 H, Procalcitonin 0.093 03/09/24 10:28: Chlamy pneumoniae PCR Not detected, Adenovirus (PCR) Not detected, B. pertussis DNA (PCR) Not detected, Coronavirus OC43 (PCR) Not detected, Coronavirus HKU1 (PCR) Not detected, Coronavirus 229E (PCR) Not detected, SARS-CoV-2 (PCR) Not detected, Coronavirus NL63 (PCR) Not detected, Human Metapneumovir PCR Not detected, Influenza A (H1) PCR Not detected, Influ A (H1N1/09) PCR Not detected, Influenza A (H3) PCR Not detected, Influenza Type A (PCR) Not detected, Influenza Type B (PCR) Not detected, M. pneumoniae (PCR) Not detected, Parainfluenza 1 (PCR) Not detected, Parainfluenza 2 (PCR) Not detected, Parainfluenza 3 (PCR) Not detected, Parainfluenza 4 (PCR) Not detected, RSV (PCR) Not detected, Entero/Rhino (PCR) Not detected 03/10/24 08:20: WBC 12.5 H, RBC 4.25, Hgb 13.8, Hct 41.3, MCV 97.3, MCH 32.6 H, MCHC 33.5, RDW 13.6, Plt Count 375, MPV 7.3 L, Neut % (Auto) 71.6, Lymph % (Auto) 23.7, [place] % (Auto) 3.5, Eos % (Auto) 0.4, Baso % (Auto) 0.8, Neut # (Auto) 9.0 H, Lymph # (Auto) 3.0, [place] # (Auto) 0.4, Eos # (Auto) 0.0, Baso # (Auto) 0.1, Sodium 137, Potassium 3.9, Chloride 105, Carbon Dioxide 23, Anion Gap 12.9, BUN 16, Creatinine 0.70, Estimated Creat Clear 180, Estimated GFR 96, Est GFR ( Amer) 116, Glucose 113 H, Calcium 8.9 Temp Pulse Resp BP Pulse Ox O2 Del Method O2 Flow Rate 98.6 F 113 H 20 143/78 H 86 L Nasal Cannula 3 03/09/24 08:00 03/09/24 08:00 03/09/24 08:00 03/09/24 08:00 03/09/24 08:09 03/09/24 09:00 03/09/24 09:00 Laboratory Results - last 24 hr 03/08/24 19:39: WBC 11.1 H, RBC 4.46, Hgb 14.4, Hct 43.0, MCV 96.3, MCH 32.2 H, MCHC 33.5, RDW 13.4, Plt Count 399, MPV 7.6, Neut % (Auto) 59.5, Lymph % (Auto) 34.0, [place] % (Auto) 3.5, Eos % (Auto) 1.1, Baso % (Auto) 1.9, Neut # (Auto) 6.6, Lymph # (Auto) 3.8, [place] # (Auto) 0.4, Eos # (Auto) 0.1, Baso # (Auto) 0.2, Sodium 139, Potassium 3.6, Chloride 102, Carbon Dioxide 31 H, Anion Gap 9.6, BUN 17, Creatinine 0.80, Estimated Creat Clear 154, Estimated GFR 82, Est GFR ( Amer) 99, Glucose 143 H, Calcium 8.8, Total Bilirubin 0.3, AST 56 H D, ALT 74 D, Alkaline Phosphatase 76, Troponin I < 0.01, NT-Pro-B Natriuret Pep 293 H, Total Protein 7.0, Albumin 3.9, Globulin 3.1, Albumin/Globulin Ratio 1.3 03/08/24 19:49: VBG pH 7.45 H, VBG pCO2 42.6, VBG pO2 46.2 H, VBG HCO3 28.9, VBG Total CO2 30.2 H, VBG O2 Saturation 84.8 H, VBG Base Excess 4.9 H, VBG Lactic Acid 3.0 H 03/08/24 20:23: Urine HCG, Qual Negative 03/08/24 23:19: Lactate 1.5, Troponin I < 0.01 03/09/24 02:24: Troponin I < 0.01 03/09/24 06:25: WBC 13.3 H, RBC 4.55, Hgb 14.9, Hct 45.0, MCV 99.0, MCH 32.8 H, MCHC 33.2, RDW 13.2, Plt Count 408, MPV 7.7, Neut % (Auto) 89.7 H, Lymph % (Auto) 8.5 L, [place] % (Auto) 1.3 L, Eos % (Auto) 0.0 L, Baso % (Auto) 0.5, Neut # (Auto) 11.9 H, Lymph # (Auto) 1.1, [place] # (Auto) 0.2, Eos # (Auto) 0.0, Baso # (Auto) 0.1, Total Counted 100, Neutrophils % (Manual) 94 H, Lymphocytes % (Manual) 5 L, Monocytes % (Manual) 1 L, Platelet Estimate Normal, Macrocytosis 1+, Sodium 138, Potassium 4.1, Chloride 103, Carbon Dioxide 21 L, Anion Gap 18.1 H, BUN 13, Creatinine 0.60 D, Estimated Creat Clear 210, Estimated GFR 114, Est GFR ( Amer) 138 D, Glucose 158 H, Calcium 9.0, Magnesium 2.4 H, Total Bilirubin 0.4, AST 66 H, ALT 98 H D, Alkaline Phosphatase 86, Total Protein 7.2, Albumin 4.1, Globulin 3.1, Albumin/Globulin Ratio 1.3, TSH 0.95 I & O for Labs for Last 24 Hours: Intake & Output 03/07/24 03/08/24 03/09/24 03/10/24 23:59 23:59 23:59 23:59 Intake Total 1494 / 1734 1340 / 1340 Output Total 0 / 0 0 / 0 Balance 1494 / 1734 1340 / 1340 Weight 272 lb 222 lb 222 lb 0.017 oz Intake & Output 06/03/07/24 03/08/24 03/09/24 23:59 23:59 23:59 23:59 Intake Total 1194 / 1194 Output Total 0 / 0 Balance 1194 / 1194 Weight 272 lb 222 lb Microbiology Reports for the Last 24 Hours: Microbiology 03/09/24 00:12 Sputum - Expectorated Sputum Gram Stain - Final 03/09/24 00:12 Sputum - Expectorated Sputum Sputum Culture - Preliminary 03/08/24 21:15 Blood Blood Culture - Preliminary NO GROWTH AFTER 24 HOURS 03/08/24 21:10 Blood Blood Culture - Preliminary NO GROWTH AFTER 24 HOURS 03/09/24 00:12 Sputum - Expectorated Sputum ROGELIO Preparation - Final Constitutional: Present moderate distress Head: Present normocephalic and atraumatic ENT: Present normal exam, normal oropharynx and mucous membranes moist Neck: Present normal inspection and full ROM Respiratory: Present respiratory distress and able to speak in complete sentences; Absent rhonchi, wheezes or crackles Cardiac: Present S1/S2, Tachycardia and radial pulses present GI: Present soft and distention; Absent tenderness or guarding Rectal (female): Present deferred (female): Present deferred Skin: Present intact; Absent cyanosis or jaundice Neuro: Present alert, awake and oriented x 3 Extremities: Present normal inspection; Absent clubbing or cyanosis Psychiatric: Present normal affect and cooperative Assessment and Plan *Assessment and plan (1) Acute hypoxemic respiratory failure: Status: Acute Category: Medical Code(s): J96.01 - Acute respiratory failure with hypoxia (2) Atypical pneumonia: Status: Acute Category: Medical Code(s): J18.9 - Pneumonia, unspecified organism Plan Ms. Correa is a 34-year-old male with a reported history of hypothyroidism obesity asthma presented to ER with worsening respiratory distress chest comfort admitted to the hospital further management pulmonary was called for further evaluation. Patient recently presented to the ED on with similar symptoms discharged home in azithromycin and prednisone with no significant improvement in her symptoms. Patient admits continued worsening symptoms cough and productive phlegm which is improving after this amidsison. She also admits prior episodes with a Tmax of 103. Denies any known sick contacts. 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 Prior history of asthma, using albuterol on as-needed basis stable at baseline not needing her albuterol in the last 4 years prior to this episode of worsening respiratory distress Afebrile. Hemodynamically stable. Hypoxic and tachycardic. Neutrophilic predominant leukocytosis. Complaints of respiratory viral PCR panel negative upon presentation to ER on 02/28/2024 Chest x-ray admission reviewed, bilateral clear lung angel with no consolidation/airspace disease noted. CTA from 03/06/24 no evidence of pulmonary embolism. Nonspecific diffuse micronodular tree-in-bud opacities with no specific distribution concerning for atypical infection. Lymphadenopathy also noted can well be reactive. No recent prior CT chest imaging available for review. On initial examination appeared to be moderate respiratory distress. No significant wheezing noted on auscultation. Interval update: No acute respiratory events overnight. Hemodynamically stable. Afebrile. Improving oxygen requirements. Stable leukocytosis. Comprehensive respiratory viral PCR panel negative. LDH at 283. CRP mildly elevated at 15.8. Procalcitonin within normal limits at 0.093. Antibiotics were written for vancomycin and cefepime to levofloxacin Plan: Continue oxygen supplementation to maintain O2 saturation goal of 90% and above. As needed at rest. Continious at 2 L nocturnal oxygen supplementation. Follow with 6-minute walk testing to determine oxygen supplementation with exertion. Follow-up with sputum Gram stain, AFB, fungal stain cultures Follow-up with urine histoplasma antigen strep and Legionella antigens. Continue levofloxacin from pulmonary standpoint pending cultures and lab work to complete a total of 7-day course Initiate Advair 500 inhaler along with DuoNebs every 6 hours on as-needed basis Will hold off on bronchoscopy pending workup and clinical followup # Thank you for involving pulmonary in this patient care. Will follow the patient in pulmonary clinic 2 weeks post discharge. Patient can be discharged home on levofloxacin, Advair 500 inhaler along with DuoNebs every 6 hours on as-needed basis. Will perform walk testing prior to discharge. Nocturnal desaturations noted. Patient need to set up for oxygen supplementation nebulization machine prior to discharge
--- NOTE | 2024-03-10 11:03 | P.DS_ITS ---
General Admission date:: 03/08/24 Discharge date: 03/10/24 HPI HPI HPI: This is a 34-year-old female with past medical history of hypothyroidism, obesity, and asthma, presented to the ED for evaluation on worsening short of breath and chest pain. Patient is stated that symptoms began couple days ago. She started by having cough and fever, subsequently developed what she describes as a chest tightness and difficulty breathing. Patient was seen in the ED. was diagnosed with pneumonia and discharged on Zithromax and prednisone. Patient did not improve went to the primary doctor was discussed, antibiotics changed to the cefdinir. Patient presented today for evaluation nonresolving symptoms. Admitted for further workup and treatment. Hospital Course Hospital Course Hospital Course: 34-year-old female with past medical history of hypothyroidism, obesity, and asthma, presented to the ED for evaluation on worsening short of breath and chest pain. Patient is stated that symptoms began couple days ago. On arrival patient was tachypneic, satting low 90s on room air. Chest x-ray and labs are unremarkable. However previous CTA from 2 days ago was concerning for prominent hilar and right paratracheal lymph nodes. Patient received sepsis workup at the ER. Vancomycin and Unasyn was given. previous respiratory cultures are negative. Due to nonresolution of the symptoms, ED requested admission for inpatient management. Medicine agreed to admit. Katherine during admission. Pulmonology was consulted to assist with care. Initially on IV antibiotics, transition to oral to complete course at discharge. Stable on room air to discharge home. Problems addressed as follows: Atypical pneumonia Acute hypoxemic respiratory failure -Patient admitted for new oxygen requirement and failure of outpatient therapy for pneumonia. Comprehensive respiratory panel was obtained and found negative. Able to wean oxygen during admission to room air. Stable on room air throughout day of discharge. Pulmonology consulted and assisting with management. Sputum obtained for Gram stain, acid-fast, fungal cultures. Still pending at discharge. Patient showed improvement with IV antibiotics. Was transitioned to levofloxacin day before discharge for ease of transition to oral dosing. Urine histo and Legionella antigens pending at time of discharge. Patient tolerating DuoNebs and Pulmicort. Steroids were discontinued pending studies due to concern for possible fungal pathogen. Bronchoscopy not performed during admission but pending response to therapy and improvement as an outpatient, may necessitate bronchoscopy in the future. White count improved, mildly elevated at 12.5 on day of discharge. Kidney function remained normal. Electrolytes normal. Initiated on Advair. Nebulizer ordered to go home with. Of note, Levaquin prescribed, initially sent for 4 days. Gave verbal order to correct course for total of 7-day course (needed 6 more doses) HIV antibody nonreactive. Sputum negative for yeast. Hypothyroid: cont. levothyroxine 50 mcg daily; tsh 0.95 Exam Data for Last 24 hours Vital signs and Labs for Last 24 Hours: Temp Pulse Resp BP Pulse Ox O2 Del Method O2 Flow Rate 98.0 F 84 15 135/80 93 L Room Air 1 03/10/24 07:59 03/10/24 07:59 03/10/24 07:59 03/10/24 07:59 03/10/24 07:59 03/10/24 09:00 03/10/24 08:00 Laboratory Results - last 24 hr 03/09/24 06:25: Lactate Dehydrogenase 283 L, C-Reactive Protein 15.8 H, Procalcitonin 0.093 03/09/24 10:28: Chlamy pneumoniae PCR Not detected, Adenovirus (PCR) Not detected, B. pertussis DNA (PCR) Not detected, Coronavirus OC43 (PCR) Not detected, Coronavirus HKU1 (PCR) Not detected, Coronavirus 229E (PCR) Not detected, SARS-CoV-2 (PCR) Not detected, Coronavirus NL63 (PCR) Not detected, Human Metapneumovir PCR Not detected, Influenza A (H1) PCR Not detected, Influ A (H1N1/09) PCR Not detected, Influenza A (H3) PCR Not detected, Influenza Type A (PCR) Not detected, Influenza Type B (PCR) Not detected, M. pneumoniae (PCR) Not detected, Parainfluenza 1 (PCR) Not detected, Parainfluenza 2 (PCR) Not detected, Parainfluenza 3 (PCR) Not detected, Parainfluenza 4 (PCR) Not detected, RSV (PCR) Not detected, Entero/Rhino (PCR) Not detected 03/10/24 08:20: WBC 12.5 H, RBC 4.25, Hgb 13.8, Hct 41.3, MCV 97.3, MCH 32.6 H, MCHC 33.5, RDW 13.6, Plt Count 375, MPV 7.3 L, Neut % (Auto) 71.6, Lymph % (Auto) 23.7, [place] % (Auto) 3.5, Eos % (Auto) 0.4, Baso % (Auto) 0.8, Neut # (Auto) 9.0 H, Lymph # (Auto) 3.0, [place] # (Auto) 0.4, Eos # (Auto) 0.0, Baso # (Auto) 0.1, Sodium 137, Potassium 3.9, Chloride 105, Carbon Dioxide 23, Anion Gap 12.9, BUN 16, Creatinine 0.70, Estimated Creat Clear 180, Estimated GFR 96, Est GFR ( Amer) 116, Glucose 113 H, Calcium 8.9 I & O for Last 24 hours: Intake & Output 03/07/24 03/08/24 03/09/24 03/10/24 23:59 23:59 23:59 23:59 Intake Total 1494 / 1734 1340 / 1340 Output Total 0 / 0 0 / 0 Balance 1494 / 1734 1340 / 1340 Weight 123.377 kg 100.698 kg 100.698 kg Microbiology Reports for the Last 24 Hours: Microbiology 03/09/24 00:12 Sputum - Expectorated Sputum Gram Stain - Final 03/09/24 00:12 Sputum - Expectorated Sputum Sputum Culture - Preliminary 03/08/24 21:15 Blood Blood Culture - Preliminary NO GROWTH AFTER 24 HOURS 03/08/24 21:10 Blood Blood Culture - Preliminary NO GROWTH AFTER 24 HOURS 03/09/24 00:12 Sputum - Expectorated Sputum ROGELIO Preparation - Final Constitutional Constitutional: no acute distress and cooperative *Routine HEENT Exam Head: Present normocephalic Eye: Present EOMI and PERRL ENT: Present mucous membranes moist *Routine Neck Exam Neck: Present supple; Absent lymphadenopathy *Routine Respiratory Exam Respiratory: Present CTA bilaterally; Absent rhonchi, wheezes or crackles *Routine Cardiovascular Exam Cardiovascular: Present RRR *Routine Abdominal Exam Abdominal: Present soft and normoactive bowel sounds; Absent tenderness *Routine Rectal Exam Patient deferred: visual exam *Routine Exam Patient deferred: external exam *Routine Extremities Exam Extremities: Absent cyanosis, clubbing or edema *Routine Skin Exam Skin: Present warm; Absent rash *Routine Neurological Exam Neurological: Present alert, oriented X3 and moving all extremities; Absent altered mental status Results Data Completed and Pending Labs on day of discharge: Labs from last 24 hours 03/10/24 03/09/24 03/09/24 08:20 10:28 06:25 WBC 12.5 H RBC 4.25 Hgb 13.8 Hct 41.3 MCV 97.3 MCH 32.6 H MCHC 33.5 RDW 13.6 Plt Count 375 MPV 7.3 L Neut % (Auto) 71.6 Lymph % (Auto) 23.7 [place] % (Auto) 3.5 Eos % (Auto) 0.4 Baso % (Auto) 0.8 Neut # (Auto) 9.0 H Lymph # (Auto) 3.0 [place] # (Auto) 0.4 Eos # (Auto) 0.0 Baso # (Auto) 0.1 Sodium 137 Potassium 3.9 Chloride 105 Carbon Dioxide 23 Anion Gap 12.9 BUN 16 Creatinine 0.70 Estimated Creat Clear 180 Estimated GFR 96 Est GFR ( Amer) 116 Glucose 113 H Calcium 8.9 Lactate Dehydrogenase 283 L C-Reactive Protein 15.8 H Procalcitonin 0.093 Chlamy pneumoniae PCR Not detected Adenovirus (PCR) Not detected B. pertussis DNA (PCR) Not detected Coronavirus OC43 (PCR) Not detected Coronavirus HKU1 (PCR) Not detected Coronavirus 229E (PCR) Not detected SARS-CoV-2 (PCR) Not detected Coronavirus NL63 (PCR) Not detected Human Metapneumovir PCR Not detected Influenza A (H1) PCR Not detected Influ A (H1N1/09) PCR Not detected Influenza A (H3) PCR Not detected Influenza Type A (PCR) Not detected Influenza Type B (PCR) Not detected M. pneumoniae (PCR) Not detected Parainfluenza 1 (PCR) Not detected Parainfluenza 2 (PCR) Not detected Parainfluenza 3 (PCR) Not detected Parainfluenza 4 (PCR) Not detected RSV (PCR) Not detected Entero/Rhino (PCR) Not detected Preliminary micro results at discharge 03/09/24 00:12 Sputum Culture - Preliminary Sputum - Expectorated Sputum 03/08/24 21:15 Blood Culture - Preliminary Blood NO GROWTH AFTER 24 HOURS 03/08/24 21:10 Blood Culture - Preliminary Blood NO GROWTH AFTER 24 HOURS DS: Diagnosis Discharge Diagnosis (1) Acute hypoxemic respiratory failure: Status: Acute Code(s): J96.01 - Acute respiratory failure with hypoxia (2) Atypical pneumonia: Status: Acute Code(s): J18.9 - Pneumonia, unspecified organism Meds Home Medications and Allergies Home Medications Medication Instructions Recorded Confirmed Type levothyroxine 50 mcg tablet 50 mcg PO DAILY 06/03/23 03/08/24 History ipratropium 0.5 mg-albuterol 3 mg 3 ml inhalation Q6HP PRN shortness 03/10/24 Rx (2.5 mg base)/3 mL nebulization of breath or wheezing 30 days #120 soln mL levofloxacin 750 mg tablet 750 mg PO DAILY 4 days #4 tabs 03/10/24 Rx budesonide-formoterol HFA 160 2 puff inhalation BID 90 days 03/12/24 Rx mcg-4.5 mcg/actuation aerosol #10.2 grams inhaler (Symbicort) New Prescriptions to Start Prescriptions: ipratropium-albuterol Sol[facility] Melchor levofloxacin [facility] Mel[facility] Allergies Allergy/AdvReac Type Severity Reaction Status Date / Time sulfamethoxazole Allergy Mild Rash Verified 03/08/24 19:49 [From Bactrim] trimethoprim [From Bactrim] Allergy Mild Rash Verified 03/08/24 19:49 Discharge Plan Disposition Patient Disposition: Home, Self-Care Condition: Fair Discharge Order Discharge Orders: Discharge Order (Routine); Ordered 03/10/24 Ordered By: Solis Melchor Follow up Plan Follow up with: Humera Garcia APRN [Primary Care Provider] - 03/17/24 10:00 am Sunitha Foster MD [Physician] - 03/22/24 1:00 pm Prescriptions/Medication Reconciliation: New ipratropium-albuterol 0.5 mg-3 mg(2.5 mg base)/3 mL Solution For Nebulization 3 ml inhalation Q6HP PRN (Reason: shortness of breath or wheezing) 30 Days Qty: 120 0RF levofloxacin 750 mg tablet 750 mg PO DAILY 4 Days Qty: 4 0RF Continued levothyroxine 50 mcg tablet 50 mcg PO DAILY No Action budesonide-formoterol [Symbicort] 160-4.5 mcg/actuation HFA aerosol inhaler 2 puff inhalation BID 90 Days Qty: 10.2 2RF Other Ambulatory Orders: Home Medical Equipment (Routine) Location: None Selected Ordered By: Solis Melchor Problem Reconciliation Problems Reviewed?: Yes Patient Discharge Instructions ACTIVITY: Continue current activity DIET: continue same diet Patient Instructions: DI for Respiratory Failure, DI for Atypical Pneumonia Providers Primary Care Provider: Humera Garcia Provider: Grace Alvarado Attending Provider: Grace Alvarado
[2024-03-10 11:22] LABS: Lymphocytes % 26 % (10-50); Monocytes % 1 % (2-9); Neutrophils % 73 % (42-76); Platelet Estimate Normal; RBC Morphology Normal; Total Cells Counted 100
--- NOTE | 2024-03-10 12:09 | PC.NURSE ---
RESP CARE NOTE: Pt performed 6 min walk test, and oxygen saturation never went below 93% during testing. RN informed.
[2024-03-10 14:09] LABS: HIV (1&2) Antibody Rapid NONREACTIVE
--- NOTE | 2024-03-11 15:44 | CARE MANAGER ---
Contacted patient related to hospital discharge. Patient not able to afford inhaler. The pharmacy has contacted pulmonology office to see about changing it. She did get nebulizers and antibiotic. She denies questions or concerns and is aware of follow up appointments.
== END 2024-03-10 13:37 | disposition home or self-care (01) | DRG 193 ==
LOC: ER 22:33 → 2ND 03-09 01:52
PROVIDERS: Internal Medicine Adolescent Medicine; Internal Medicine Pulmonary Disease; Nurse Practitioner Family; Admitting Provider Internal Medicine; Emergency Provider Emergency Medicine; PCP Nurse Practitioner; Visit Provider Internal Medicine
DX: J18.9 Pneumonia, unspecified organism (principal); J96.01 Acute respiratory failure with hypoxia; F32.A Depression, unspecified; F41.9 Anxiety disorder, unspecified; J45.909 Unspecified asthma, uncomplicated; E66.9 Obesity, unspecified; Z68.39 Body mass index [BMI] 39.0-39.9, adult
CPT/HCPCS: 36415; 71046; 80048; 80053; 81025; 82803; 83605; 83615; 83735; 83880; 84145; 84443; 84484; 85007; 85014; 85018; 85025; 85048; 85049; 86140; 87040; 87070; 87116; 87186; 87205; 87206; 87220; 87581; 87632; 87635; 87798; 93005; 94618; 94640; 99291; J1100; J1650; J1956; J3370; J7120; J7620

== ENCOUNTER 2024-06-10 10:38 | Emergency (ER) | payer OTHER, SELFPAY ==
[2024-06-10 10:51] VITALS: BP 127/72; PULSE 73; RESP 20; TEMP 36.8; O2SAT 97; BMI 39.3
--- NOTE | 2024-06-10 10:54 | ED_ITS ---
Discharge Plan Disposition Patient Disposition: Home, Self-Care Condition: Good Prescriptions Prescriptions: New ondansetron 4 mg tablet,disintegrating 4 mg PO Q8H PRN (Reason: nausea and vomiting) Qty: 10 0RF No Action levothyroxine 50 mcg tablet See Rx Instructions .ROUTE .COMPLEX Qty: 90 3RF Dose Instruction: Take 1 tablet by mouth once daily Rx Instructions: Take 1 tablet by mouth once daily Referrals Follow up/Referrals: Danielle Garcia APRN [Primary Care Provider] - See instructions Activity Restrictions/Add. Instructions Additional Instructions/Restrictions: *Monitor Temp, Over the counter Motrin or Tylenol as directed/as needed Tylenol every 4 hours and Motrin every 6 hours (as long as your family doctor has told you that you can take it) for fever or pain. and straight to ER if unable to lower temp less than 101.0 after medication given *Warm salt water gargles may help to soothe the throat *Throat Lozenges? *Warm fluids like tea with honey may help to soothe the throat? *Sleep elevated *Humidifier/Vaporizer Your throat swab was sent for culture. Those results are typically sent to your primary care. Be sure to follow up in 2-3 days with your family doctor/primary care physician if no improvement so they can review those result and treat if necessary. If you don?t have a primary care doctor, I recommend you get one but in the mean time, you will have to return to a walk in clinic Follow up IMMEDIATELY for new or worsening symptoms or no Noticeable improvement over the next 48-72 hours. 911 for difficulty breathing or swallowing You were tested for today for Upper Respiratory Panel with COVID19 your test result should be back in the next 24 hours, you may check your results on the [facility] Portal Clinical Impressions Clinical Impression: Viral syndrome Stand Alone Forms Stand Alone Forms: Work/School Release Instructions Patient Instructions: DI for Viral Syndrome, Nausea and Vomiting-Adult Print Language Print Language: [place] Discharge ED Provider: Vandana Clements [facility] [place] HPI General Stated complaint: headache, body aches, nauseous Mode of Arrival: Ambulatory Source of Information: Patient Time Seen by Provider: 06/10/24 10:54 Description of Symptoms (Recalled from Triage Doc. 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 and she hasnt felt well in the last couple of days woke up this morning with headache, body aches and N/V so she came in to get checked Related Data Previous Rx's ?Medication ?Instructions ?Recorded levothyroxine 50 mcg tablet See Rx Instructions .Route 04/28/24 .COMPLEX #90 tabs ondansetron 4 mg disintegrating 4 mg PO Q8H PRN nausea and 06/10/24 tablet vomiting #10 tabs Allergies Allergy/AdvReac Type Severity Reaction Status Date / Time sulfamethoxazole Allergy Mild Rash Verified 03/22/24 13:06 [From Bactrim] trimethoprim [From Bactrim] Allergy Mild Rash Verified 03/22/24 13:06 Worker's Comp Is this a Worker's Comp case?: No [facility] Disclaimer: The information contained in this section may have been updated after the patient was seen, as this information can be updated by other users. 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 (Updated 06/10/24 @ 11:12 by Vandana Clements APRN) Dyspnea on exertion Deviated nasal septum Cyst of bone of right foot Asthma Thyroid disease Depression Anxiety Migraine Surgical History History of exploratory laparotomy History of tubal ligation History of hysterectomy History of cholecystectomy Family History Other Heart attack Stroke Social History Smoking Status: Never smoker alcohol intake: never substance use type: denies use current occupational status: unemployed Travel in the last 8 weeks: None household members: spouse and family housing: house current occupational exposures/hazards: No caffeine: Yes ROS Obtained: Yes All systems reviewed & no additional complaints except as documented and Yes Systems reviewed as appropriate & no additional complaints except as documented Constitutional Constitutional: Reports system reviewed and no additional complaints, except as documented, Reports body ache, Reports chills and Reports headache(s) ENT Ears, Nose, Mouth, and Throat: Reports system reviewed and no additional complaints, except as documented, Reports as per HPI and Reports headache(s) Cardiovascular Cardiovascular: Reports system reviewed and no additional complaints, except as documented and Reports as per HPI Respiratory Respiratory: Reports system reviewed and no additional complaints, except as documented and Reports as per HPI Gastrointestinal Gastrointestingal: Reports system reviewed and no additional complaints, except as documented, as per HPI, nausea and vomiting Neurologic Neurologic: Reports headache(s) Physical Exam General General appearance: alert and in no apparent distress ENT ENT exam: Present mucous membranes moist Expanded ENT Exam Nose exam: Absent sinus tenderness Throat exam: Present normal inspection Respiratory Respiratory exam: Present normal lung sounds bilaterally; Absent respiratory distress or wheezes Cardiovascular Cardiovascular exam: Present regular rate, normal rhythm and normal heart sounds Abdominal Exam Abdominal exam: Present soft and normal bowel sounds; Absent distention or tenderness Neurological Exam Neurological exam: Present alert, oriented X3 and normal gait Medical Decision Making Medical Records Screening: Per USPSTF and CDC recommendations, given the prevalence of disease in our region, it is our hospital?s policy to screen for HIV and viral Hepatitis for all patients aged 18 and over and those with ongoing risk factors. Luke Inquiry Pt receiving controlled substance: No Luke was queried for this patient: No Vital Signs: 06/10/24 10:51 Temperature 98.3 F Temperature Source Oral Pulse Rate [Left Brachial] 73 Respiratory Rate 20 Blood Pressure [Left Arm] 127/72 Blood Pressure Mean [Left Arm] 90 02 Sat by Pulse Oximetry 97 Lab Data Lab results reviewed: Yes I reviewed the patient's lab results.
[2024-06-10 11:13] LABS: UTC Influenza A Antigen Negative (Negative); UTC Strep Screen (Rapid) Negative (Negative)
[2024-06-10 11:14] LABS: UTC Influenza B Antigen Negative (Negative)
[2024-06-10 11:15] VITALS: BP 127/72; PULSE 73; RESP 20; TEMP 36.8
== END 2024-06-10 11:18 | disposition home or self-care (01) ==
PROVIDERS: Emergency Provider Nurse Practitioner; PCP Nurse Practitioner
DX: R51.9 Headache, unspecified (principal); R11.2 Nausea with vomiting, unspecified; B34.9 Viral infection, unspecified
CPT/HCPCS: 87804; 87880; 99212; 99214; G0463

== ENCOUNTER 2024-07-24 11:04 | Outpatient (CLI) | payer OTHER, SELFPAY ==
[2024-07-24 11:51] LABS: Triiodothryronine (T3) Uptake 32 % (23.5-40.5)
[2024-07-24 11:52] LABS: Free Thyroxine Index 2.5 ug/dL (5.93-13.13); T4 (Thyroxine) 7.8 ug/dl (5.53-11.0)
[2024-07-24 12:05] LABS: Thyroid Stimulating Hormone 1.84 uIU/mL (0.465-4.68)
== END 2024-07-24 23:59 | disposition home or self-care (01) ==
LOC: LAB 11:06
PROVIDERS: PCP Nurse Practitioner; Visit Provider Nurse Practitioner Obstetrics & Gynecology
DX: E03.9 Hypothyroidism, unspecified (principal)
CPT/HCPCS: 36415; 84436; 84443; 84479

== ENCOUNTER 2025-05-04 20:12 | Emergency (ER) | payer SELFPAY ==
--- NOTE | 2025-05-04 20:20 | CT_ITS ---
PROCEDURE INFORMATION: Exam: CT Abdomen And Pelvis With Contrast Exam date and time: 05/04/2025 8:53 PM Age: 35 years old Clinical indication: Abdominal pain; Flank; Left; Additional info: Left flank/abdominal pain TECHNIQUE: Imaging protocol: Computed tomography of the abdomen and pelvis with contrast. Radiation optimization: All CT scans at this facility use at least one of these dose optimization techniques: automated exposure control; mA and/or kV adjustment per patient size (includes targeted exams where dose is matched to clinical indication); or iterative reconstruction. Contrast material: ISOVUE; Contrast volume: 75 ml; Contrast route: IV; COMPARISON: CT ANGIO CHEST PE PROTOCOL 03/06/2024 8:00 AM FINDINGS: Liver: Normal. No mass. Gallbladder and biliary ducts: Surgical clips gallbladder fossa. Pancreas: Normal. No ductal dilation. Spleen: Normal. No splenomegaly. Adrenal glands: Normal. No mass. Kidneys and ureters: Normal-sized kidneys. Decreased enhancement of the left kidney with moderate left hydronephrosis with a 3.5 mm stone at the left ureteropelvic junction. No significant left perinephric stranding appreciated. No retained renal stones, right hydronephrosis or right ureteral stone appreciated. Stomach and bowel: Unremarkable. No obstruction. No mucosal thickening. Appendix: Normal retrocecal appendix right lower quadrant. Intraperitoneal space: Unremarkable. No free air. No significant fluid collection. Vasculature: Unremarkable. No abdominal aortic aneurysm. Lymph nodes: Small reactive appearing mesenteric lymph nodes. Urinary bladder: Unremarkable as visualized. Reproductive: Surgical absence of the uterus with multiple pelvic surgical clips. Normal-appearing ovaries. Bones/joints: Unremarkable. No acute fracture. Soft tissues: Unremarkable. IMPRESSION: 1. 3.5 mm stone left ureteropelvic junction with moderate hydronephrosis of the left kidney. 2. Previous cholecystectomy and partial hysterectomy. 3. Other findings above.
[2025-05-04 20:22] VITALS: BP 173/134; PULSE 77; RESP 28; TEMP 36.8; O2SAT 100; BMI 37.9
--- NOTE | 2025-05-04 20:22 | ED_ITS ---
Discharge Plan Disposition Patient Disposition: Home, Self-Care Prescriptions Prescriptions: New tamsulosin [Flomax] 0.4 mg capsule 0.4 mg PO DAILY Qty: 10 0RF ketorolac 10 mg tablet 10 mg PO Q8H PRN (Reason: pain) 4 Days Qty: 14 0RF No Action levothyroxine 50 mcg tablet See Rx Instructions .ROUTE .COMPLEX Qty: 90 3RF Dose Instruction: Take 1 tablet by mouth once daily Rx Instructions: Take 1 tablet by mouth once daily Referrals Follow up/Referrals: Jose (ED),JOHN Santos [Primary Care Provider, Emergency Medicine] - See instructions Activity Restrictions/Add. Instructions Additional Instructions/Restrictions: You were found to have a kidney stone that is a source of your pain. You are being prescribed Flomax as well as Toradol. Take these as prescribed. You can also take Tylenol to help with symptoms. Follow-up with your primary care physician as needed. If you develop any new or worsening symptoms, or if you become concerned for your health for any reason, return to the emergency department for evaluation. Clinical Impressions Clinical Impression: Kidney stone Instructions Patient Instructions: DI for Acute Abdominal Pain Print Language Print Language: Slovenian Discharge ED Provider: Inocente Pedro Adult HPI General Chief complaint: Abdominal Pain Stated complaint: abdominal pain Time Seen by Provider: 05/04/25 20:14 Mode of Arrival: Ambulatory Source of Information: Patient Limitations: No Limitations History of Present Illness HPI narrative: Coco Correa is a 35-year-old female with a history of obesity, asthma, hypothyroidism, status post cholecystectomy, tubal, partial hysterectomy who presents to the emergency department for complaints of left-sided abdominal pain and nausea and vomiting. Patient states that she has had sharp/stabbing left flank pain that radiates to her left abdomen that started approximately 1 hour ago. She denies any dysuria, hematuria or changes in urinary frequency. She states that she has not had pain like this in the past. She does report that she has had nausea and vomiting with this. She denies any diarrhea or constipation. She denies any history of kidney stones. Related Data Previous Rx's ?Medication ?Instructions ?Recorded levothyroxine 50 mcg tablet See Rx Instructions .Route 04/10/25 .COMPLEX #90 tabs ketorolac 10 mg tablet 10 mg PO Q8H PRN pain 4 days #14 05/04/25 tabs tamsulosin 0.4 mg capsule (Flomax) 0.4 mg PO DAILY #10 caps 05/04/25 Allergies Allergy/AdvReac Type Severity Reaction Status Date / Time sulfamethoxazole (From Allergy Mild Rash Verified 07/19/24 15:48 Bactrim) trimethoprim (From Bactrim) Allergy Mild Rash Verified 07/19/24 15:48 PFSH [facility] Disclaimer: The information contained in this section may have been updated after the patient was seen, as this information can be updated by other users. 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 (Updated 05/04/25 @ 21:51 by Inocente Pedro MD) Dyspnea on exertion Deviated nasal septum Cyst of bone of right foot Asthma Thyroid disease Depression Anxiety Migraine Surgical History (Updated 07/19/24 @ 15:50 by Xi Cortez MA) Hx of atrial septal defect repair History of ankle surgery History of exploratory laparotomy History of tubal ligation History of hysterectomy History of cholecystectomy Family History Other Heart attack Stroke Social History Smoking Status: Never smoker alcohol intake: never substance use type: denies use current occupational status: unemployed Travel in the last 8 weeks?: None household members: spouse and family housing: house current occupational exposures/hazards: No caffeine: Yes Have you lived/traveled outside US in past 30 days?: No Contact w/someone who lives/traveled outside US past 30 days?: No Exposure to someone with infectious disease in past 14 days?: No Do you have a fever (greater than 100.4 F or 38 C)?: No Have you tested positive for COVID-19?: No Exposed to someone with COVID-19 in past 14 days?: No Do you have a sore throat?: No Do you have a cough?: No Do you have any weakness?: No Do you have any diarrhea?: No Are you experiencing any unusual bleeding?: No Do you have any muscle aches/pain?: No Do you have any abdominal pain?: No Are you experiencing loss of taste or smell?: No Other 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 Have you received the Flu Vaccine for this season: No Have you received the Pneumonia Vaccine: No ROS Obtained: Yes Systems reviewed as appropriate & no additional complaints except as documented Physical Exam General General appearance: alert, in no apparent distress and anxious Comment: appears uncomfortable, tearful Head Head exam: atraumatic Eye Eye exam: Present normal appearance ENT ENT exam: Present normal external ear exam Neck Neck exam: Present full ROM Chest Chest inspection: Present symmetric chest wall rise Respiratory Respiratory exam: Present normal lung sounds bilaterally; Absent respiratory distress Cardiovascular Cardiovascular exam: Present regular rate and normal rhythm Abdominal Exam Abdominal exam: Present soft and tenderness (mild LLQ); Absent distention, guarding or rigidity Extremities Exam Extremities exam: Present normal inspection Back Exam Back exam: Present normal inspection; Absent CVA tenderness (R) or CVA tenderness (L) Neurological Exam Neurological exam: Present alert and oriented X3 Psychiatric Psychiatric exam: Present normal affect Skin Skin exam: Present warm and dry Medical Decision Making Medical Records Screening: Per USPSTF and CDC recommendations, given the prevalence of disease in our region, it is our hospital?s policy to screen for HIV and viral Hepatitis for all patients aged 18 and over and those with ongoing risk factors. Luke Inquiry Pt receiving controlled substance: No Vital Signs: 05/04/25 20:22 05/04/25 20:32 05/04/25 21:00 Temperature 98.2 F Temperature Source Temporal Artery Scan Pulse Rate 64 60 Pulse Rate [Right] 77 Respiratory Rate 28 H Blood Pressure 135/90 141/91 H Blood Pressure [Right Arm] 173/134 H Blood Pressure Mean [Right Arm] 147 02 Sat by Pulse Oximetry 100 98 99 Oxygen Delivery Method Room Air 05/04/25 21:15 05/04/25 21:56 Temperature 98.1 F Temperature Source Pulse Rate 75 73 Pulse Rate [Right] Respiratory Rate 22 Blood Pressure 111/91 H 111/91 H Blood Pressure [Right Arm] Blood Pressure Mean [Right Arm] 02 Sat by Pulse Oximetry 93 L Oxygen Delivery Method Room Air Lab Data Lab Results 05/04/25 20:18: WBC 9.7, RBC 4.78, Hgb 15.7, Hct 43.7, MCV 91.4, MCH 32.8 H, M CHC 35.9 H, RDW 11.6, Plt Count 340, MPV 9.0, Neut % (Auto) 71.5, Lymph % (Auto) 20.9, [place] % (Auto) 5.5, Eos % (Auto) 1.3, Baso % (Auto) 0.5, Neut # (Auto) 7.0, Lymph # (Auto) 2.0, [place] # (Auto) 0.5, Eos # (Auto) 0.1, Baso # (Auto) 0.1, PT 10.3, INR 0.92, APTT 21.6 L, Sodium 139, Potassium 3.8, Chloride 101, Carbon Dioxide 26, Anion Gap 15.8 H, BUN 11, Creatinine 0.80, Estimated Creat Clear 150, Estimated GFR 82, Est GFR ( Amer) 99, Glucose 114 H, Calcium 9.9, Total Bilirubin 0.5, AST 37 H, ALT 36, Alkaline Phosphatase 77, Total Protein 8.3 H, Albumin 5.0, Globulin 3.3 H, Albumin/Globulin Ratio 1.5, Lipase 56, Serum HCG, Qual Negative, HCV Ab JOE w/Rflx PCR Qn Negative, HIV Ag/Ab Combo Qual Negative 05/04/25 20:45: Urine Color Yellow, Urine Appearance Clear, Urine pH 6.0, Ur Specific Shepherd >= 1.030, Urine Protein Trace, Urine Glucose (UA) Negative, Urine Ketones Negative, Urine Blood 3+ A, Urine Nitrate Negative, Urine Bilirubin Negative, Urine Urobilinogen 0.2, Ur Leukocyte Esterase Negative, Urine RBC 50-100, Urine WBC 5-10, Ur Squamous Epith Cells 5-10, Calcium Oxalate Crystal 1+, Urine Bacteria 1+, Urine Mucus 1+ 05/04/25 20:18 05/04/25 20:18 Orders (Tests/Meds): ED MEDICATIONS Discontinued Medications Generic Name Dose Route Start Last Admin Trade Name Misbah PRN Reason Stop Dose Admin Lactated Ringer's 1,000 mls @ 999 mls/hr 05/04/25 20:20 05/04/25 20:31 Lactated Ringer's 1000 Ml Bag IV 05/04/25 21:20 999 mls/hr .Q1H1M ONE Administration Iopamidol 75 ml 05/04/25 20:52 05/04/25 20:52 Iopamidol-370 (76%);100ml Bottle IV 05/04/25 20:53 75 ml ONCE ONE Administration Ketorolac Tromethamine 15 mg 05/04/25 20:58 05/04/25 21:02 Ketorolac 30mg/Ml Vial IV 05/04/25 20:59 15 mg ONCE ONE Administration Morphine Sulfate 4 mg 05/04/25 20:20 05/04/25 20:31 Morphine 4mg/Ml Syringe IV 05/04/25 20:21 4 mg ONCE ONE Administration Ondansetron HCl 4 mg 05/04/25 20:20 05/04/25 20:31 Ondansetron 4mg/2ml Vial IV 05/04/25 20:21 4 mg ONCE ONE Administration Sodium Chloride 10 ml 05/04/25 20:52 05/04/25 20:52 Sodium Chloride 0.9% 10ml Syr (Rad Only) IV 06/03/25 20:51 10 ml NEEDED PRN Administration Maintain IV Site ORDERS Category Date Time Status CT abdomen pelvis w con Stat Cat Scan 05/04/25 20:20 Completed CBC w/Auto Diff [Complete Blood Count Auto Diff] Stat Lab 05/04/25 20:18 Completed CMP [Comprehensive Metabolic Panel] Stat Lab 05/04/25 20:18 Completed HIV Combo Stat Lab 05/04/25 20:18 Completed Hepatitis C Ab Qual. W/ RFX Stat Lab 05/04/25 20:18 Completed Lipase Stat Lab 05/04/25 20:18 Completed PT INR [Prothrombin Time INR] Stat Lab 05/04/25 20:18 Completed PTT [Activated Partial Thrombo Time] Stat Lab 05/04/25 20:18 Completed Serum [HCG Qualitative, Serum] Stat Lab 05/04/25 20:18 Completed UA [Urinalysis and Microscopic] Stat Lab 05/04/25 20:45 Completed Medical Decision Narrative: Coco Correa is a 35-year-old female with a history of obesity, asthma, hypothyroidism, status post cholecystectomy, tubal, partial hysterectomy who presents to the emergency department for complaints of left-sided abdominal pain and nausea and vomiting. Patient states that she has had sharp/stabbing left flank pain that radiates to her left abdomen that started approximately 1 hour ago. She denies any dysuria, hematuria or changes in urinary frequency. She states that she has not had pain like this in the past. She does report that she has had nausea and vomiting with this. She denies any diarrhea or constipation. She denies any history of kidney stones. On arrival, patient is hypertensive with blood pressure 173/134, heart rate within normal limits, breathing comfortably on room air with oxygen saturation 100% SpO2. Afebrile. Physical exam, as stated above, reveals an uncomfortable appearing female who is tearful and anxious. Cardiopulmonary exam is unremarkable. Abdomen is soft and nonperitonitic. She has some mild left lower quadrant abdominal pain. She has no CVA tenderness. The remainder of her exam is grossly unremarkable. Differential diagnosis includes, but is not limited to: Ureterolithiasis, urinary tract infection, diverticulitis, bowel obstruction, ectopic , acute pancreatitis, among others. The most morbid conditions were considered and workup was based on these. Workup in the emergency department included: CT abdomen pelvis with IV contrast, CMP, PTT, serum test, CBC with differential, lipase, PT/INR, urinalysis. Patient was initially treated with 4 mg of IV morphine and 4 mg of IV Zofran. She received 1 L lactated Ringer's. Patient additionally received 15 mg of IV Toradol for continued pain. Workup showed no leukocytosis, no anemia, coagulation studies unremarkable. CMP with mildly elevated anion gap of 15.8, electrolytes within normal limits. Glucose within normal limits. AST very mildly elevated at 37 but liver enzymes unremarkable otherwise. Bilirubin within normal limits. Lipase normal at 56. Negative test. Urine with 3+ blood, negative nitrites, negative leukocyte esterase, 50-100 red blood cells on microscopy and 5-10 white blood cells and 5-10 squamous epithelial cells. 1+ bacteria. CT imaging was interpreted by me personally. Patient has a renal stone measuring approximately 3.5 mm in the left ureteropelvic junction with moderate hydronephrosis of the left kidney. No other acute findings are noted. See final radiology report for details. Given the size of the kidney stone, is felt that it will likely pass on its own. There does not appear to be any evidence of an infected kidney stone based on patient's urine studies. On reassessment, patient had significant improvement in pain, her blood pressure has normalized. She states that she is currently not in any pain at all. Given this, is felt that the patient is appropriate for discharge home and will be sent prescription for Toradol as well as Flomax. Patient was given return precautions. All questions were answered. She demonstrated understanding and was agreement this plan. She was then discharged from the emergency department in stable condition. Critical Care Critical Care Time Critical Care Time: No
--- OUTSIDE RECORDS SUMMARY | 2025-05-04 20:22 | XMS_ITS | Clinical Summary ---
Author Organization Healthcare Address [address] [place] [address] Care Team Providers Care Metal Weigher Name Role Phone Sonido Shannon MD Primary Care Provider [phone] Family History 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 Relation Name Comments Stroke Other 1 Diabetes Other 2 Other cancer Other 3 Rheum arthritis Other 4 Relation Name Status Comments Other 1 Other 2 Other 3 Other 4 Social History Tobacco Use Types Packs/Day Years Used Date Smoking Tobacco: Never Comments Unknown Sex and Gender Information Value Date Recorded Sex Assigned at Not on file Legal Sex Female 8:47 PM EDT Gender Identity Not on file Sexual Orientation Not on file Last Filed Vital Signs Vital Sign Reading Time Taken Comments Blood Pressure 123/84 03/08/2020 10:57 AM EDT Pulse 94 03/08/2020 10:57 AM EDT Temperature 36.5 C (97.7 F) 03/08/2020 10:57 AM EDT Respiratory Rate 16 03/08/2020 10:57 AM EDT Oxygen Saturation - - Inhaled Oxygen Concentration - - Weight 99.8 kg (220 lb) 03/08/2020 10:57 AM EDT Height 160 cm (5' 3 ) 03/08/2020 10:57 AM EDT Body Mass Index 38.97 03/08/2020 10:57 AM EDT Plan of Treatment Not on file Care Teams Metal Weigher Relationship Specialty Start Date End Date Sonido Shannon [place] [address] PCP - General 02/02/21
[2025-05-04 20:26] LABS: Hematocrit 43.7 % (37.0-47.0); Hemoglobin 15.7 g/dL (12.2-16.2); Immature Granulocytes % 0.3 %; Mean Corpuscular HGB Conc 35.9 g/dL (31.8-35.4); Mean Corpuscular Hemoglobin 32.8 pg (27.0-31.2); Mean Corpuscular Volume 91.4 fl (81-99); Nucleated Red Blood Cells % 0 %; Platelet Count 340 K/mm3 (142-424); Red Blood Count 4.78 M/mm3 (4.20-5.40); Red Cell Distribution Width-SD 39.4 fL; White Blood Count 9.7 K/mm3 (4.8-10.8)
[2025-05-04] MEDS: ONDANSETRON 4MG/2ML VIAL 4 MG IV (20:31)
[2025-05-04] MEDS: MORPHINE 4MG/ML SYRINGE 4 MG IV (20:31)
[2025-05-04] MEDS: LACTATED RINGERS 1000ML 1,000 ML 999 ML IV (20:31)
[2025-05-04 20:32] VITALS: BP 135/90; PULSE 64; O2SAT 98
[2025-05-04 20:38] LABS: HCG Qualitative, Serum Negative (Negative)
[2025-05-04 20:44] LABS: Albumin Level 5.0 g/dl (3.5-5.0); Chloride 101 mmol/L (98-107); Sodium 139 mmol/L (136-145)
[2025-05-04 20:45] LABS: Potassium 3.8 mmoL/L (3.5-5.1)
[2025-05-04 20:47] LABS: Alanine Aminotransferase 36 U/L (12-78); Albumin/Globulin Ratio 1.5 (1.1-1.8); Alkaline Phosphatase 77 U/L (38-126); Anion Gap 15.8 mEq/L (5-15); Aspartate Amino Transferase 37 U/L (14-36); Bilirubin,Total 0.5 mg/dl (0.2-1.3); Blood Urea Nitrogen 11 mg/dl (7-17); Carbon Dioxide 26 mmol/L (22.0-30.0); Creatinine Clearance Estimated 150 mL/min (50-200); Creatinine,Serum 0.80 mg/dl (0.52-1.04); Estimated Glomerular Filt Rate 82 ml/min (>60); GFR (African American) 99 ML/MIN (>60); Globulin 3.3 g/dL (1.3-3.2); Glucose 114 mg/dl (74-100); Total Protein,Serum 8.3 g/dl (6.3-8.2)
[2025-05-04 20:48] LABS: Calcium 9.9 mg/dl (8.4-10.2); Lipase 56 U/L (23-300)
[2025-05-04 20:49] LABS: Microscopic, Urine URINE MICROSCOPIC (MICROSCOPIC)
[2025-05-04] MEDS: IOPAMIDOL-370 (76%);100ML BOTTLE 75 ML IV (20:52)
[2025-05-04] MEDS: SODIUM CHLORIDE 0.9% 10ML SYR (RAD ONLY) 10 ML IV (20:52)
[2025-05-04 20:54] LABS: Bilirubin,Urine Negative (Negative); Color,Urine YELLOW (Yellow); Glucose,Urine (UA) Negative (Negative); Ketones,Urine Negative (Negative); Leukocyte Esterase,Urine Negative (Negative); PH,Urine 6.0 (5.0-8.5); Protein,Urine TRACE (Negative); Specific Gravity, Urine >= 1.030 (1.005-1.030); Urobilinogen,Urine 0.2 EU/dl (0.2)
[2025-05-04 20:56] LABS: Activated Partial Thrombo Time 21.6 seconds (22.8-30.6); INR 0.92 (0.9-1.1); Prothrombin Time 10.3 seconds (10.1-12.5)
[2025-05-04 21:00] VITALS: BP 141/91; PULSE 60; O2SAT 99
[2025-05-04] MEDS: KETOROLAC 30MG/ML VIAL 15 MG IV (21:02)
[2025-05-04 21:15] VITALS: BP 111/91; PULSE 75; O2SAT 93
[2025-05-04 21:21] LABS: Bacteria,Urine 1+ /lpf; Calcium Oxalate Crystals,Urine 1+ /lpf; Mucus,Urine 1+ /lpf; RBC,Urine 50-100 #/hpf (0-3)
[2025-05-04 21:56] VITALS: BP 111/91; PULSE 73; RESP 22; TEMP 36.7; O2SAT 100
[2025-05-04 22:08] LABS: Hepatitis C Ab Qual. W/ RFX NEGATIVE (Negative)
== END 2025-05-04 22:06 | disposition home or self-care (01) ==
PROVIDERS: Emergency Provider Student in an Organized Health Care Education/Training Program; PCP Nurse Practitioner
DX: N13.0 Hydronephrosis with ureteropelvic junction obstruction (principal); R10.32 Left lower quadrant pain; R11.2 Nausea with vomiting, unspecified
CPT/HCPCS: 74177; 80053; 81001; 83690; 84703; 85025; 85610; 85730; 86803; 87389; 96361; 96374; 96375; 99285; J1885; J2270; J2405; J7120; Q9967

== ENCOUNTER 2025-05-18 18:58 | Emergency (ER) | payer SELFPAY ==
[2025-05-18] VITALS (33 sets, daily range): BP systolic 103–145; BP diastolic 66–94; PULSE 65–85; RESP 16–18; TEMP 36.6; O2SAT 92–100; BMI 38.9
--- OUTSIDE RECORDS SUMMARY | 2025-05-18 19:18 | XMS_ITS | Clinical Summary ---
Author Organization Healthcare Address [address] [place] [address] Care Team Providers Care Film Crew Member Name Role Phone Sonido Shannon MD Primary Care Provider [phone] Family History 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 Relation Name Comments [...] of Treatment Not on file Care Teams Film Crew Member Relationship Specialty Start Date End Date Sonido Shannon [place] [address] PCP - General 02/02/21
--- NOTE | 2025-05-18 19:20 | CT_ITS ---
PROCEDURE INFORMATION: Exam: CT Abdomen And Pelvis Without Contrast Exam date and time: 05/18/2025 8:40 PM Age: 35 years old Clinical indication: Abdominal pain; Additional info: Assess for left uretrolith TECHNIQUE: Imaging protocol: Computed tomography of the abdomen and pelvis without contrast. Radiation optimization: All CT scans at this facility use at least one of these dose optimization techniques: automated exposure control; mA and/or kV adjustment per patient size (includes targeted exams where dose is matched to clinical indication); or iterative reconstruction. COMPARISON: CT ABDOMEN PELVIS W CON 05/04/2025 8:53 PM FINDINGS: Liver: Normal. No mass. Gallbladder and biliary ducts: Cholecystectomy. Pancreas: Normal. No ductal dilation. Spleen: Normal. No splenomegaly. Adrenal glands: Normal. No mass. Kidneys and ureters: Interval migration of a 4.5 mm stone to the left ureterovesical junction. Kmeq-dx-fzmhzhju upstream dilation of the left urinary collecting system. Mild asymmetric left renal enlargement. Stomach and bowel: Unremarkable. No obstruction. No mucosal thickening. Appendix: No evidence of appendicitis. Intraperitoneal space: Unremarkable. No free air. No significant fluid collection. Vasculature: Unremarkable. No abdominal aortic aneurysm. Lymph nodes: Unremarkable. No enlarged lymph nodes. Urinary bladder: Unremarkable as visualized. Reproductive: Hysterectomy. Bones/joints: Unremarkable. No acute fracture. Soft tissues: Very small fat containing umbilical hernia. IMPRESSION: Interval migration of a 4.5 mm stone to the left ureterovesical junction. Worsening [id number] left hydroureteronephrosis.
[2025-05-18 19:30] LABS: Microscopic, Urine URINE MICROSCOPIC (MICROSCOPIC)
[2025-05-18 19:32] LABS: Bilirubin,Urine Negative (Negative); Color,Urine YELLOW (Yellow); Glucose,Urine (UA) Negative (Negative); Ketones,Urine Negative (Negative); Leukocyte Esterase,Urine Negative (Negative); PH,Urine 5.5 (5.0-8.5); Protein,Urine Negative (Negative); Specific Gravity, Urine >= 1.030 (1.005-1.030); Urobilinogen,Urine 0.2 EU/dl (0.2)
[2025-05-18 19:32] LABS: Hematocrit 42.0 % (37.0-47.0); Hemoglobin 14.9 g/dL (12.2-16.2); Immature Granulocytes % 0.3 %; Mean Corpuscular HGB Conc 35.5 g/dL (31.8-35.4); Mean Corpuscular Hemoglobin 33.3 pg (27.0-31.2); Mean Corpuscular Volume 93.8 fl (81-99); Nucleated Red Blood Cells % 0 %; Platelet Count 322 K/mm3 (142-424); Red Blood Count 4.48 M/mm3 (4.20-5.40); Red Cell Distribution Width-SD 39.9 fL; White Blood Count 10.6 K/mm3 (4.8-10.8)
[2025-05-18 19:42] LABS: Albumin Level 4.9 g/dl (3.5-5.0); Chloride 104 mmol/L (98-107)
[2025-05-18 19:43] LABS: Potassium 4.3 mmoL/L (3.5-5.1); Sodium 140 mmol/L (136-145)
[2025-05-18 19:45] LABS: Alanine Aminotransferase 35 U/L (12-78); Albumin/Globulin Ratio 1.5 (1.1-1.8); Alkaline Phosphatase 76 U/L (38-126); Anion Gap 14.3 mEq/L (5-15); Aspartate Amino Transferase 39 U/L (14-36); Bilirubin,Total 0.6 mg/dl (0.2-1.3); Blood Urea Nitrogen 20 mg/dl (7-17); Carbon Dioxide 26 mmol/L (22.0-30.0); Creatinine Clearance Estimated 137 mL/min (50-200); Creatinine,Serum 0.90 mg/dl (0.52-1.04); Estimated Glomerular Filt Rate 71 ml/min (>60); GFR (African American) 86 ML/MIN (>60); Globulin 3.2 g/dL (1.3-3.2); Glucose 84 mg/dl (74-100); Lipase 85 U/L (23-300); Total Protein,Serum 8.1 g/dl (6.3-8.2)
[2025-05-18] MEDS: LACTATED RINGERS 1000ML 500 ML 999 ML IV (19:45)
[2025-05-18 19:46] LABS: Calcium 10.2 mg/dl (8.4-10.2)
[2025-05-18] MEDS: ONDANSETRON 4MG/2ML VIAL 4 MG IV (19:46)
[2025-05-18] MEDS: MORPHINE 4MG/ML SYRINGE 4 MG IV (19:47)
[2025-05-18] MEDS: KETOROLAC 30MG/ML VIAL 30 MG IV (19:48)
[2025-05-18 19:56] LABS: Bacteria,Urine 4+ /lpf; Squamous Epithelial Cell,Urine 20-50 #/hpf (0-5)
[2025-05-18 20:32] LABS: HCG Qualitative, Serum Negative (Negative)
[2025-05-18 20:34] LABS: Microscopic, Urine URINE MICROSCOPIC (MICROSCOPIC)
[2025-05-18 20:35] LABS: Bilirubin,Urine Negative (Negative); Color,Urine YELLOW (Yellow); Glucose,Urine (UA) Negative (Negative); Ketones,Urine Negative (Negative); Leukocyte Esterase,Urine TRACE (Negative); PH,Urine 6.0 (5.0-8.5); Protein,Urine Negative (Negative); Specific Gravity, Urine 1.025 (1.005-1.030); Urobilinogen,Urine 0.2 EU/dl (0.2)
[2025-05-18 20:56] LABS: RBC,Urine Occasional #/hpf (0-3); WBC,Urine Occasional #/hpf (0-3)
[2025-05-18 20:57] LABS: Bacteria,Urine Trace /lpf; Squamous Epithelial Cell,Urine Occasional #/hpf (0-5)
--- NOTE | 2025-05-18 22:19 | HMH.EDGENADL ---
Discharge Plan Disposition Patient Disposition: Home, Self-Care Condition: Good Prescriptions Prescriptions: New oxycodone 5 mg tablet 5 mg PO Q8H PRN (Reason: pain) Qty: 10 0RF No Action levothyroxine 50 mcg tablet See Rx Instructions .ROUTE .COMPLEX Qty: 90 3RF Dose Instruction: Take 1 tablet by mouth once daily Rx Instructions: Take 1 tablet by mouth once daily tamsulosin [Flomax] 0.4 mg capsule 0.4 mg PO DAILY Qty: 10 0RF ketorolac 10 mg tablet 10 mg PO Q8H PRN (Reason: pain) 4 Days Qty: 14 0RF Referrals Follow up/Referrals: Danielle Garcia APRN [Primary Care Provider, Medical] - See instructions Activity Restrictions/Add. Instructions Additional Instructions/Restrictions: Your kidney stone has progressed down the urine tube and is about to pass into the bladder. I want you to continue taking Flomax at home as well as ibuprofen and tylenol. If you experience breakthrough pain you can take oxycodone. If you have any new or worsening symptoms, especially fever, please return. Clinical Impressions Clinical Impression: Ureterolithiasis Instructions Patient Instructions: Kidney Stones -- Adult Print Language Print Language: Singaporean Discharge ED Provider: Oscar Walker Adult HPI General Chief complaint: Abdominal Pain Stated complaint: Abdominal pain Time Seen by Provider: 05/18/25 19:17 Mode of Arrival: Ambulatory Source of Information: Patient Description of Symptoms (Recalled from ER Triage Doc. by RN): patiente presents to the ED for left lower wuadrant pain. patient has a kidney stone that was confirmed 3 weeks ago. Patient has not had kidney stones thus far. History of Present Illness HPI narrative: This is a 35-year-old female patient, with past medical history of obesity, asthma, hypothyroidism, cholecystectomy, and partial hysterectomy, who is presenting to the emergency department today for evaluation of left-sided abdominal and flank pain. The patient was seen in our emergency department on 05/04/2025 and was diagnosed with a left-sided ureteral stone located at the ureteropelvic junction. At that time she did have mild hydronephrosis but no evidence of urinary tract infection or acute kidney injury so she was discharged home in stable condition. The patient states that she has had persistent pain over the last 2 weeks and she feels that this pain is now migrated down into her left lower quadrant and the pain is not tolerable any longer at home. She has had no fevers or dysuria. Related Data Previous Rx's ?Medication ?Instructions ?Recorded levothyroxine 50 mcg tablet See Rx Instructions .Route 04/10/25 .COMPLEX #90 tabs ketorolac 10 mg tablet 10 mg PO Q8H PRN pain 4 days #14 05/04/25 tabs tamsulosin 0.4 mg capsule (Flomax) 0.4 mg PO DAILY #10 caps 05/04/25 oxycodone 5 mg tablet 5 mg PO Q8H PRN pain #10 tabs 05/18/25 Allergies Allergy/AdvReac Type Severity Reaction Status Date / Time sulfamethoxazole (From Allergy Mild Rash Verified 05/18/25 19:41 Bactrim) trimethoprim (From Bactrim) Allergy Mild Rash Verified 05/18/25 19:41 PFS PFS Disclaimer: The information contained in this section may have been updated after the patient was seen, as this information can be updated by other users. 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 (Updated 05/18/25 @ 22:22 by Oscar Walker DO) Dyspnea on exertion Deviated nasal septum Cyst of bone of right foot Asthma Thyroid disease Depression Anxiety Migraine Surgical History (Updated 07/19/24 @ 15:50 by Xi Cortez MA) Hx of atrial septal defect repair History of ankle surgery History of exploratory laparotomy History of tubal ligation History of hysterectomy History of cholecystectomy Family History Other Heart attack Stroke Social History Smoking Status: Former smoker alcohol intake: never substance use type: denies use current occupational status: unemployed Travel in the last 8 weeks?: None household members: spouse and family housing: house current occupational exposures/hazards: No caffeine: Yes Have you lived/traveled outside US in past 30 days?: No Contact w/someone who lives/traveled outside US past 30 days?: No Exposure to someone with infectious disease in past 14 days?: No Do you have a fever (greater than 100.4 F or 38 C)?: No Have you tested positive for COVID-19?: No Exposed to someone with COVID-19 in past 14 days?: No Do you have a sore throat?: No Do you have a cough?: No Do you have any weakness?: No Do you have any diarrhea?: No Are you experiencing any unusual bleeding?: No Do you have any muscle aches/pain?: No Do you have any abdominal pain?: No Are you experiencing loss of taste or smell?: No Other 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 Have you received the Flu Vaccine for this season: No Have you received the Pneumonia Vaccine: No ROS Obtained: Yes Systems reviewed as appropriate & no additional complaints except as documented Physical Exam General General appearance: other (See MDM) Respiratory Respiratory exam: Present other (See MDM) Cardiovascular Cardiovascular exam: Present other (See MDM) Neurological Exam Neurological exam: Present other (See MDM) Medical Decision Making Medical Records Medical records reviewed: Yes I reviewed the patient's medical records. Screening: Per USPSTF and CDC recommendations, given the prevalence of disease in our region, it is our hospital?s policy to screen for HIV and viral Hepatitis for all patients aged 18 and over and those with ongoing risk factors. Luke Inquiry Pt receiving controlled substance: No Luke was queried for this patient: No Vital Signs: 05/18/25 19:06 05/18/25 19:16 05/18/25 19:20 Temperature 97.8 F Temperature Source Temporal Artery Scan Pulse Rate 77 74 Pulse Rate [Right Radial] 82 Respiratory Rate 18 Blood Pressure 118/71 128/89 Blood Pressure [Right Arm] 130/85 Blood Pressure Mean Blood Pressure Mean [Right Arm] 100 Blood Pressure Source Blood Pressure Source [Right Arm] Automatic Cuff Blood Pressure Position Blood Pressure Position [Right Arm] Sitting 02 Sat by Pulse Oximetry 100 99 97 Oxygen Delivery Method Room Air 05/18/25 19:26 05/18/25 19:30 05/18/25 19:35 Temperature Temperature Source Pulse Rate 74 71 71 Pulse Rate [Right Radial] Respiratory Rate Blood Pressure 119/84 132/91 H 131/88 Blood Pressure [Right Arm] Blood Pressure Mean 103 Blood Pressure Mean [Right Arm] Blood Pressure Source Blood Pressure Source [Right Arm] Blood Pressure Position Blood Pressure Position [Right Arm] 02 Sat by Pulse Oximetry 97 94 L 98 Oxygen Delivery Method Room Air 05/18/25 19:40 05/18/25 19:45 05/18/25 19:54 Temperature Temperature Source Pulse Rate 67 85 75 Pulse Rate [Right Radial] Respiratory Rate Blood Pressure 145/94 H 132/91 H 125/84 Blood Pressure [Right Arm] Blood Pressure Mean Blood Pressure Mean [Right Arm] Blood Pressure Source Blood Pressure Source [Right Arm] Blood Pressure Position Blood Pressure Position [Right Arm] 02 Sat by Pulse Oximetry 97 97 96 Oxygen Delivery Method Room Air 05/18/25 20:01 05/18/25 20:05 05/18/25 20:10 Temperature Temperature Source Pulse Rate 77 79 76 Pulse Rate [Right Radial] Respiratory Rate Blood Pressure 124/84 128/76 126/81 Blood Pressure [Right Arm] Blood Pressure Mean Blood Pressure Mean [Right Arm] Blood Pressure Source Blood Pressure Source [Right Arm] Blood Pressure Position Blood Pressure Position [Right Arm] 02 Sat by Pulse Oximetry 92 L 96 94 L Oxygen Delivery Method 05/18/25 20:15 05/18/25 20:20 05/18/25 20:22 Temperature Temperature Source Pulse Rate 72 72 78 Pulse Rate [Right Radial] Respiratory Rate Blood Pressure 126/79 128/83 Blood Pressure [Right Arm] Blood Pressure Mean Blood Pressure Mean [Right Arm] Blood Pressure Source Blood Pressure Source [Right Arm] Blood Pressure Position Blood Pressure Position [Right Arm] 02 Sat by Pulse Oximetry 93 L 95 96 Oxygen Delivery Method 05/18/25 20:50 05/18/25 20:51 05/18/25 20:55 Temperature Temperature Source Pulse Rate 73 65 Pulse Rate [Right Radial] Respiratory Rate Blood Pressure 107/73 L Blood Pressure [Right Arm] Blood Pressure Mean 84 Blood Pressure Mean [Right Arm] Blood Pressure Source Blood Pressure Source [Right Arm] Blood Pressure Position Blood Pressure Position [Right Arm] 02 Sat by Pulse Oximetry 97 95 Oxygen Delivery Method 05/18/25 20:55 05/18/25 21:00 05/18/25 21:00 Temperature Temperature Source Pulse Rate 71 Pulse Rate [Right Radial] Respiratory Rate Blood Pressure 112/73 114/78 Blood Pressure [Right Arm] Blood Pressure Mean 82 86 Blood Pressure Mean [Right Arm] Blood Pressure Source Blood Pressure Source [Right Arm] Blood Pressure Position Blood Pressure Position [Right Arm] 02 Sat by Pulse Oximetry 97 Oxygen Delivery Method 05/18/25 21:05 05/18/25 21:05 05/18/25 21:10 Temperature Temperature Source Pulse Rate 76 71 Pulse Rate [Right Radial] Respiratory Rate Blood Pressure 111/74 Blood Pressure [Right Arm] Blood Pressure Mean 80 Blood Pressure Mean [Right Arm] Blood Pressure Source Blood Pressure Source [Right Arm] Blood Pressure Position Blood Pressure Position [Right Arm] 02 Sat by Pulse Oximetry 95 96 Oxygen Delivery Method 05/18/25 21:10 05/18/25 21:15 05/18/25 21:15 Temperature Temperature Source Pulse Rate 76 Pulse Rate [Right Radial] Respiratory Rate Blood Pressure 110/68 109/66 L Blood Pressure [Right Arm] Blood Pressure Mean 76 80 Blood Pressure Mean [Right Arm] Blood Pressure Source Blood Pressure Source [Right Arm] Blood Pressure Position Blood Pressure Position [Right Arm] 02 Sat by Pulse Oximetry 95 Oxygen Delivery Method 05/18/25 21:20 05/18/25 21:20 05/18/25 21:25 Temperature Temperature Source Pulse Rate 72 Pulse Rate [Right Radial] Respiratory Rate Blood Pressure 109/76 L 109/74 L Blood Pressure [Right Arm] Blood Pressure Mean 87 83 Blood Pressure Mean [Right Arm] Blood Pressure Source Blood Pressure Source [Right Arm] Blood Pressure Position Blood Pressure Position [Right Arm] 02 Sat by Pulse Oximetry 95 Oxygen Delivery Method 05/18/25 21:25 05/18/25 21:30 05/18/25 21:30 Temperature Temperature Source Pulse Rate 82 71 Pulse Rate [Right Radial] Respiratory Rate Blood Pressure 103/71 L Blood Pressure [Right Arm] Blood Pressure Mean 80 Blood Pressure Mean [Right Arm] Blood Pressure Source Blood Pressure Source [Right Arm] Blood Pressure Position Blood Pressure Position [Right Arm] 02 Sat by Pulse Oximetry 97 95 Oxygen Delivery Method 05/18/25 21:35 05/18/25 21:35 05/18/25 21:40 Temperature Temperature Source Pulse Rate 74 73 Pulse Rate [Right Radial] Respiratory Rate Blood Pressure 110/70 Blood Pressure [Right Arm] Blood Pressure Mean 77 Blood Pressure Mean [Right Arm] Blood Pressure Source Blood Pressure Source [Right Arm] Blood Pressure Position Blood Pressure Position [Right Arm] 02 Sat by Pulse Oximetry 96 95 Oxygen Delivery Method 05/18/25 21:40 05/18/25 21:44 05/18/25 21:45 Temperature Temperature Source Pulse Rate 76 Pulse Rate [Right Radial] Respiratory Rate Blood Pressure 109/75 L 107/67 L Blood Pressure [Right Arm] Blood Pressure Mean 85 84 Blood Pressure Mean [Right Arm] Blood Pressure Source Blood Pressure Source [Right Arm] Blood Pressure Position Blood Pressure Position [Right Arm] 02 Sat by Pulse Oximetry 96 Oxygen Delivery Method 05/18/25 21:50 05/18/25 21:55 05/18/25 21:55 Temperature Temperature Source Pulse Rate 70 Pulse Rate [Right Radial] Respiratory Rate Blood Pressure 124/76 113/83 Blood Pressure [Right Arm] Blood Pressure Mean 83 92 Blood Pressure Mean [Right Arm] Blood Pressure Source Blood Pressure Source [Right Arm] Blood Pressure Position Blood Pressure Position [Right Arm] 02 Sat by Pulse Oximetry 95 Oxygen Delivery Method 05/18/25 22:00 05/18/25 22:37 Temperature 97.8 F Temperature Source Pulse Rate 67 67 Pulse Rate [Right Radial] Respiratory Rate 16 Blood Pressure 121/75 121/75 Blood Pressure [Right Arm] Blood Pressure Mean Blood Pressure Mean [Right Arm] Blood Pressure Source Automatic Cuff Blood Pressure Source [Right Arm] Blood Pressure Position Sitting Blood Pressure Position [Right Arm] 02 Sat by Pulse Oximetry 97 Oxygen Delivery Method Room Air Lab Data Lab Results 05/18/25 19:15: Urine Color Yellow, Urine Appearance Sl cloudy, Urine pH 5.5, Ur Specific [place] >= 1.030, Urine Protein Negative, Urine Glucose (UA) Negative, Urine Ketones Negative, Urine Blood Negative, Urine Nitrate Negative, Urine Bilirubin Negative, Urine Urobilinogen 0.2, Ur Leukocyte Esterase Negative, Urine RBC None, Urine WBC 5-10, Ur Squamous Epith Cells 20-50, Urine Bacteria 4+ 05/18/25 19:20: WBC 10.6, RBC 4.48, Hgb 14.9, Hct 42.0, MCV 93.8, MCH 33.3 H, MCHC 35.5 H, RDW 11.6, Plt Count 322, MPV 9.0, Neut % (Auto) 70.6, Lymph % (Auto) 20.5, [place] % (Auto) 5.5, Eos % (Auto) 2.5, Baso % (Auto) 0.6, Neut # (Auto) 7.5, Lymph # (Auto) 2.2, [place] # (Auto) 0.6, Eos # (Auto) 0.3, Baso # (Auto) 0.1, Sodium 140, Potassium 4.3, Chloride 104, Carbon Dioxide 26, Anion Gap 14.3, BUN 20 H, Creatinine 0.90, Estimated Creat Clear 137, Estimated GFR 71, Est GFR ( Amer) 86, Glucose 84, Calcium 10.2, Total Bilirubin 0.6, AST 39 H, ALT 35, Alkaline Phosphatase 76, Total Protein 8.1, Albumin 4.9, Globulin 3.2, Albumin/Globulin Ratio 1.5, Lipase 85, Serum HCG, Qual Negative 05/18/25 20:29: Urine Color Yellow, Urine Appearance Sl cloudy, Urine pH 6.0, Ur Specific [place] 1.025, Urine Protein Negative, Urine Glucose (UA) Negative, Urine Ketones Negative, Urine Blood Trace-i, Urine Nitrate Negative, Urine Bilirubin Negative, Urine Urobilinogen 0.2, Ur Leukocyte Esterase Trace, Urine RBC Occasional, Urine WBC Occasional, Ur Squamous Epith Cells Occasional, Urine Bacteria Trace 05/18/25 19:20 05/18/25 19:20 Orders (Tests/Meds): ED MEDICATIONS Discontinued Medications Generic Name Dose Route Start Last Admin Trade Name Freq PRN Reason Stop Dose Admin Lactated Ringer's 500 mls @ 999 mls/hr 05/18/25 19:21 05/18/25 20:28 Lactated Ringer's 1000 Ml Bag IV 05/18/25 19:51 Infused .Q31M ONE Infusion Ketorolac Tromethamine 30 mg 05/18/25 19:21 05/18/25 19:48 Ketorolac 30mg/Ml Vial IV 05/18/25 19:22 30 mg ONCE ONE Administration Morphine Sulfate 4 mg 05/18/25 19:21 05/18/25 19:47 Morphine 4mg/Ml Syringe IV 05/18/25 19:22 4 mg ONCE ONE Administration Ondansetron HCl 4 mg 05/18/25 19:21 05/18/25 19:46 Ondansetron 4mg/2ml Vial IV 05/18/25 19:22 4 mg ONCE ONE Administration Oxycodone HCl 5 mg 05/18/25 22:22 05/18/25 22:34 Oxycodone 5mg Immediate Release Tablet PO 05/18/25 22:23 5 mg ONCE ONE Administration ORDERS Category Date Time Status CT abdomen pelvis wo con Stat Cat Scan 05/18/25 19:20 Completed CBC w/Auto Diff [Complete Blood Count Auto Diff] Stat Lab 05/18/25 19:20 Completed CMP [Comprehensive Metabolic Panel] Stat Lab 05/18/25 19:20 Completed HCG Qualitative, Serum Stat Lab 05/18/25 19:20 Completed Lipase Stat Lab 05/18/25 19:20 Completed UA [Urinalysis and Microscopic] Stat Lab 05/18/25 20:29 Completed Urinalysis and Microscopic Stat Lab 05/18/25 19:15 Completed Urine Culture Stat Micro 05/18/25 19:15 Received Medical Decision Narrative: In summary, this is a 35-year-old female patient who is presenting to the emergency department today for evaluation of left-sided abdominal and flank pain. This is in the setting of a recently diagnosed renal stone 2 weeks ago that was previously located at the left ureteropelvic junction. Comorbidities include asthma, obesity, hypothyroidism, and prior cholecystectomy and hysterectomy. On initial evaluation of the patient they were resting comfortably in no acute distress and nontoxic in appearance. They are hemodynamically stable, saturating well room air, and are neurologically intact. On physical examination the patient does have tenderness to percussion of the left flank as well as left lower quadrant abdominal tenderness. There is no obvious harriet peritonitis. She has a GCS of 15 and she is appropriately alert and interactive. Heart and lungs clear to auscultation bilaterally. Differential diagnosis includes a left ureteral stone, hydronephrosis, pyelonephritis, infected ureteral stone, acute kidney injury, electrolyte derangement, among others. Initial workup included hematologic labs as well as a urinalysis and a CT scan of the abdomen and pelvis without IV contrast. Initial interventions included 30 mg of IV Toradol as well as 1 L of lactated Ringer's and 4 mg of morphine with 4 mg of Zofran. Labs were personally interpreted by me and demonstrate no evidence of leukocytosis, no actionable anemia, no significant electrolyte derangements or evidence of acute kidney injury. Creatinine is stable from prior. Urinalysis shows no nitrates, no leukocyte esterase, but it does show 5-10 white cells in addition to 20-50 squamous cells. Given that this was a contaminated sample we did repeat her urine sample and found that she had trace bacteria with occasional white blood cells and no nitrates or leukocyte esterase. I do feel that this does definitively rule out urinary tract infection/infected stone. CT scan of the abdomen and pelvis was personally interpreted by me and demonstrated a distal left ureteral stone. Official radiology read is in agreement and characterizes this as a 4.5 mm stone at the left ureterovesicular junction. They also note that there is worsening mild to moderate left hydronephrosis. On repeat assessment of the patient she was still experiencing some pain but was overall resting comfortably and was nontoxic in appearance and hemodynamically stable. I have informed the patient that her stone has progressed and is on the verge of passing into the bladder. We discussed indications for removal of the stone, namely that stones can be emergently removed for intractable pain. The patient states that she does not feel that her pain is currently intractable and severe enough to undergo emergent removal and she would like to continue trialing natural passage. Therefore, we administered 5 mg of oxycodone to the patient. I have prescribed oxycodone for her to take at home over the next several days. I have also instructed her to continue taking Toradol and Flomax at home. She ensures that she still has access to and enough of this medication at home. At this time all questions were answered and all parties were agreeable with the decision to discharge home Critical Care Critical Care Time Critical Care Time: No
[2025-05-18] MEDS: OXYCODONE 5MG IMMEDIATE RELEASE TABLET 5 MG PO (22:34)
--- NOTE | 2025-05-20 09:03 | PC.NURSE ---
Urine culture results reviewed by Dr. Walker, no new orders received.
== END 2025-05-18 22:38 | disposition home or self-care (01) ==
PROVIDERS: Emergency Provider Student in an Organized Health Care Education/Training Program; PCP Nurse Practitioner
DX: N13.0 Hydronephrosis with ureteropelvic junction obstruction (principal); R10.32 Left lower quadrant pain
CPT/HCPCS: 74176; 80053; 81001; 83690; 84703; 85025; 87086; 96361; 96374; 96375; 99285; J1885; J2270; J2405; J7120

== ENCOUNTER 2025-06-14 09:38 | Emergency (ER) | payer BC, SELFPAY ==
--- NOTE | 2025-06-14 09:39 | ECG_ITS ---
APPROVED REPORT Exam: Resting ECG HR:70 bpm ECG Measurements Heart Rate 70 AXES MO 145 P 43 QRSd 84 QRS 76 QT 411 T 65 QTc 431 Conclusion SINUS RHYTHM LOW QRS VOLTAGE IN PRECORDIAL LEADS [QRS DEFLECTION < 1.0 mV IN CHEST LEADS] BORDERLINE ECG Electronically signed by : ANGELA RICARDO, 06/16/2025 09:26:54
[2025-06-14 09:42] VITALS: BP 133/91; PULSE 72; PULSE 79; RESP 18; TEMP 36.6; O2SAT 97; O2SAT 98; BMI 38.9
--- OUTSIDE RECORDS SUMMARY | 2025-06-14 09:47 | XMS_ITS | Clinical Summary ---
Author Organization Healthcare Address [address] [place] [address] Care Team Providers Care Informatics Pharmacist Name Role Phone Sonido Shannon MD Primary Care Provider [phone] Family History 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 Relation Name Comments [...] of Treatment Not on file Care Teams Informatics Pharmacist Relationship Specialty Start Date End Date Sonido Shannon [place] [address] PCP - General 02/02/21
--- NOTE | 2025-06-14 09:52 | CT_ITS ---
FINAL REPORT TECHNIQUE: Thin section axial images were obtained from the aortic arch to the skull base after intravenous contrast injection per CTA protocol. Multiplanar reconstruction images were obtained. Exam was performed using dose reduction techniques and the ALARA principle. CLINICAL HISTORY: unilateral numbness since this morning FINDINGS: CTA NECK: Aortic arch: There is a normal three-vessel configuration to the aortic arch. There is no significant stenosis of the great vessels at their origins. Right carotid artery: The right common carotid artery is patent without stenosis. The cervical portions of the right internal carotid artery are patent without stenosis. 0% stenosis per NASCET criteria. Left carotid artery: The left common carotid artery is patent without stenosis. The cervical portions of the left internal carotid artery are patent without stenosis. 0% stenosis per NASCET criteria. Vertebral arteries: The vertebral arteries are patent. No significant stenosis. Other soft tissues: . IMPRESSION: No evidence of stenosis. Reviewed, Interpreted and Dictated by Katheryn Licea MD Transcribed by Isabella Meadows Authenticated and [facility]
--- NOTE | 2025-06-14 09:52 | CT_ITS ---
FINAL REPORT TECHNIQUE: Thin section axial images were obtained from skull base to vertex without contrast. Coronal reconstruction images were obtained from the axial data. Exam was performed using dose reduction techniques such as automated exposure control, adjustment of the mA and kV according to patient size, and use of iterative reconstruction technique. CLINICAL HISTORY: unilateral numbness since this morning FINDINGS: There is no mass effect or midline shift. There is no hydrocephalus. There is no intracranial hemorrhage. The posterior fossa is without acute abnormality. The basilar cisterns are preserved. There is artifact related to patient's earrings that were not removed. There is near complete opacification of the left maxillary sinus. No acute osseous abnormality is identified. IMPRESSION: No acute intracranial abnormality. Left maxillary sinusitis. Reviewed, Interpreted and Dictated by Katheryn Licea MD Transcribed by Isabella Meadows Authenticated and [facility]
--- NOTE | 2025-06-14 09:52 | CT_ITS ---
FINAL REPORT TECHNIQUE: Thin section axial images are obtained through the brain after intravenous contrast injection. Multiplanar reconstructions were obtained from the axial data. Exam was performed using dose reduction techniques such as automated exposure control, adjustment of the mA and kV according to patient size, and use of iterative reconstruction technique. CLINICAL HISTORY: unilateral numbness FINDINGS: The intracerebral portions of the carotid arteries are patent. The anterior and middle cerebral arteries are patent. The posterior cerebral arteries arise from the basilar artery. They are patent. [place] is intact. The basilar artery is patent. The vertebral arteries are patent. There is no significant stenosis, aneurysm, or AVM. IMPRESSION: Unremarkable CT angiogram of the intracerebral vasculature. Reviewed, Interpreted and Dictated by Katheryn Licea MD Transcribed by Isabella Meadows Authenticated and [facility]
[2025-06-14 10:00] VITALS: BP 127/91; PULSE 82; O2SAT 96
[2025-06-14 10:05] LABS: Hematocrit 43.0 % (37.0-47.0); Hemoglobin 15.1 g/dL (12.2-16.2); Immature Granulocytes % 0.3 %; Mean Corpuscular HGB Conc 35.1 g/dL (31.8-35.4); Mean Corpuscular Hemoglobin 32.9 pg (27.0-31.2); Mean Corpuscular Volume 93.7 fl (81-99); Nucleated Red Blood Cells % 0 %; Platelet Count 317 K/mm3 (142-424); Red Blood Count 4.59 M/mm3 (4.20-5.40); Red Cell Distribution Width-SD 40.6 fL; White Blood Count 9.2 K/mm3 (4.8-10.8)
--- NOTE | 2025-06-14 10:05 | HMH.EDGENADL ---
Discharge Plan Disposition Patient Disposition: Home, Self-Care Condition: Fair Prescriptions Prescriptions: No Action venlafaxine 150 mg capsule,extended release 24hr PO Patient Comments: TAKE 1 CAPSULE BY MOUTH ONCE DAILY WITH FOOD pravastatin 20 mg tablet PO Patient Comments: TAKE 1 TABLET BY MOUTH ONCE DAILY hydrocortisone 1 % ointment 1 applic topical BID PRN (Reason: itching) Qty: 28.35 0RF mupirocin [Centany] 2 % ointment 1 applic topical BID Qty: 15 0RF levothyroxine 50 mcg tablet See Rx Instructions .ROUTE .COMPLEX Qty: 90 3RF Dose Instruction: Take 1 tablet by mouth once daily Rx Instructions: Take 1 tablet by mouth once daily Referrals Follow up/Referrals: Bobby Novoa MD [Primary Care Provider, Medical] - See instructions Misa Delatorre MD [Staff Physician, Neurology] - See instructions Activity Restrictions/Add. Instructions Additional Instructions/Restrictions: You were seen in the emergency department for what we suspect is a complex migraine. Please follow-up with neurology outpatient. Please take [id number] magnesium supplementation daily for the next month. If symptoms return, or new symptoms develop, please return to the emergency department. Clinical Impressions Clinical Impression: Migraine Instructions Patient Instructions: DI for Migraine Print Language Print Language: Norwegian Discharge ED Provider: Gucci Yousif General Adult HPI General Chief complaint: PAIN Stated complaint: Chest pain Time Seen by Provider: 06/14/25 09:43 Mode of Arrival: Ambulatory Source of Information: Patient Description of Symptoms (Recalled from ER Triage Doc. by RN): Patient reports going to bed around 3-4 am feeling fine and then woke up around 630am with pain on the entire left side of her body. No deficits noted, denies slurred speech. Complaint of headache and nausea. History of Present Illness HPI narrative: This patient presents to the emergency department with left-sided numbness and tingling. The patient reports that she awoke from sleep this morning at 4 AM with a sensation present, last known normal is last night at 3 AM. The patient reports a vague symptom of discomfort and tingling that she describes as similar to her arm being asleep. She describes it across the left side of the face, left arm, left abdomen, left chest, left leg. She has no appreciable neurodeficits on exam though she does report mild sensation differences between the 2 sides. She does not take a blood thinner, has no history of coronary artery disease. Only significant medical history is hypothyroidism. Related Data Home Medications ?Medication ?Instructions ?Recorded ?Confirmed pravastatin 20 mg tablet mg PO 06/01/25 06/01/25 venlafaxine 150 mg mg PO 06/01/25 06/01/25 capsule,extended release 24 hr Previous Rx's ?Medication ?Instructions ?Recorded levothyroxine 50 mcg tablet See Rx Instructions .Route 04/10/25 .COMPLEX #90 tabs hydrocortisone 1 % topical ointment 1 applic topical BID PRN itching 06/01/25 #28.35 grams mupirocin 2 % topical ointment 1 applic topical BID #15 grams 06/01/25 (Centany) Allergies Allergy/AdvReac Type Severity Reaction Status Date / Time sulfamethoxazole (From Allergy Mild Rash Verified 06/01/25 12:43 Bactrim) trimethoprim (From Bactrim) Allergy Mild Rash Verified 06/01/25 12:43 PFSH PFS Disclaimer: The information contained in this section may have been updated after the patient was seen, as this information can be updated by other users. 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 Dyspnea on exertion Deviated nasal septum Cyst of bone of right foot Asthma Thyroid disease Depression Anxiety Migraine Surgical History Hx of atrial septal defect repair History of ankle surgery History of exploratory laparotomy History of tubal ligation History of hysterectomy History of cholecystectomy Family History Other Heart attack Stroke Social History Smoking Status: Never smoker alcohol intake: never substance use type: denies use current occupational status: unemployed Travel in the last 8 weeks?: None household members: spouse and family housing: house current occupational exposures/hazards: No caffeine: Yes Have you lived/traveled outside US in past 30 days?: No Contact w/someone who lives/traveled outside US past 30 days?: No Exposure to someone with infectious disease in past 14 days?: No Do you have a fever (greater than 100.4 F or 38 C)?: No Have you tested positive for COVID-19?: No Exposed to someone with COVID-19 in past 14 days?: No Do you have a sore throat?: No Do you have a cough?: No Do you have any weakness?: No Do you have any diarrhea?: No Are you experiencing any unusual bleeding?: No Do you have any muscle aches/pain?: No Do you have any abdominal pain?: No Are you experiencing loss of taste or smell?: No Other 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 Have you received the Flu Vaccine for this season: No Have you received the Pneumonia Vaccine: No ROS Obtained: Yes All systems reviewed & no additional complaints except as documented Physical Exam General General appearance: alert and in no apparent distress Head Head exam: atraumatic and normocephalic Eye Eye exam: Present normal appearance, PERRL and EOMI ENT ENT exam: Present normal exam and normal external ear exam Neck Neck exam: Present normal inspection, full ROM and trachea midline Chest Chest inspection: Present normal inspection and symmetric chest wall rise; Absent tenderness Respiratory Respiratory exam: Absent respiratory distress Cardiovascular Cardiovascular exam: Present regular rate, normal rhythm and other (appears warm and well perfused) Abdominal Exam Abdominal exam: Absent distention or tenderness Extremities Exam Extremities exam: Present normal inspection and full ROM Neurological Exam Neurological exam: Present alert and oriented X3 Psychiatric Psychiatric exam: Present normal affect Skin Skin exam: Present warm and dry Medical Decision Making Medical Records Medical records reviewed: Yes I reviewed the patient's medical records. Screening: Per USPSTF and CDC recommendations, given the prevalence of disease in our region, it is our hospital?s policy to screen for HIV and viral Hepatitis for all patients aged 18 and over and those with ongoing risk factors. Luke Inquiry Pt receiving controlled substance: No Luke was queried for this patient: No Vital Signs: 06/14/25 09:42 06/14/25 09:42 06/14/25 10:00 Temperature 97.9 F Temperature Source Oral Pulse Rate 79 82 Pulse Rate [Radial] 72 Respiratory Rate 18 Blood Pressure 127/91 H Blood Pressure [Right Arm] 133/91 H Blood Pressure Mean 103 Blood Pressure Mean [Right Arm] 105 Blood Pressure Source [Right Arm] Automatic Cuff Blood Pressure Position [Right Arm] Sitting 02 Sat by Pulse Oximetry 98 97 96 Oxygen Delivery Method Room Air Room Air 06/14/25 11:00 06/14/25 12:06 Temperature 98.0 F Temperature Source Pulse Rate 85 85 Pulse Rate [Radial] Respiratory Rate 19 Blood Pressure 115/89 115/80 Blood Pressure [Right Arm] Blood Pressure Mean Blood Pressure Mean [Right Arm] Blood Pressure Source [Right Arm] Blood Pressure Position [Right Arm] 02 Sat by Pulse Oximetry 96 Oxygen Delivery Method Lab Data Lab results reviewed: Yes I reviewed the patient's lab results. Lab Results 06/14/25 09:46: WBC 9.2, RBC 4.59, Hgb 15.1, Hct 43.0, MCV 93.7, MCH 32.9 H, MCHC 35.1, RDW 11.8, Plt Count 317, MPV 9.0, Neut % (Auto) 62.9, Lymph % (Auto) 26.8, [place] % (Auto) 6.4, Eos % (Auto) 3.3, Baso % (Auto) 0.3, Neut # (Auto) 5.8, Lymph # (Auto) 2.5, [place] # (Auto) 0.6, Eos # (Auto) 0.3, Baso # (Auto) 0.0, PT 10.0 L, INR 0.89 L, Sodium 140, Potassium 4.3, Chloride 101, Carbon Dioxide 30, Anion Gap 13.3, BUN 11, Creatinine 0.80, Estimated Creat Clear 155, Estimated GFR 82, Est GFR ( Amer) 99, Glucose 123 H, Calcium 9.6, Magnesium 2.2, Total Bilirubin 0.5, AST 28, ALT 25, Alkaline Phosphatase 78, Total Protein 7.2, Albumin 4.5, Globulin 2.7, Albumin/Globulin Ratio 1.7, Serum HCG, Qual Negative 06/14/25 09:46 06/14/25 09:46 Orders (Tests/Meds): ED MEDICATIONS Discontinued Medications Generic Name Dose Route Start Last Admin Trade Name Freq PRN Reason Stop Dose Admin Diphenhydramine HCl 25 mg 06/14/25 09:52 06/14/25 10:15 Diphenhydramine 50mg/Ml Vial IV 06/14/25 09:53 25 mg ONCE ONE Administration Droperidol 2.5 mg 06/14/25 09:52 06/14/25 10:13 Droperidol 5mg/2ml Vial IV 06/14/25 09:53 2.5 mg ONCE ONE Administration Lactated Ringer's 1,000 mls @ 999 mls/hr 09/23/25 09:52 06/14/25 11:13 Lactated Ringer's 1000 Ml Bag IV 06/14/25 10:52 Infused .Q1H1M ONE Infusion Iopamidol 80 ml 06/14/25 10:31 06/14/25 10:32 Iopamidol-370 (76%);100ml Bottle IV 06/14/25 10:32 80 ml ONCE ONE Administration Ketorolac Tromethamine 15 mg 06/14/25 09:52 06/14/25 10:12 Ketorolac 15mg/Ml Vial IV 06/14/25 09:53 15 mg ONCE ONE Administration Sodium Chloride 50 ml 06/14/25 10:31 06/14/25 10:31 0.9 % Sodium Chloride 50 Ml Vial IV 06/14/25 10:32 50 ml ONCE ONE Administration Sodium Chloride 10 ml 06/14/25 10:31 06/14/25 10:32 Sodium Chloride 0.9% 10ml Syr (Rad Only) IV 06/14/25 10:32 10 ml ONCE ONE Administration ORDERS Category Date Time Status CT angio head Stat Cat Scan 06/14/25 09:[address] angio neck Stat Cat Scan 06/14/25 09:[address] head/brain wo con Stat Cat Scan 06/14/25 09:52 Completed Beta HCG, Qual [HCG Qualitative, Serum] Stat Lab 06/14/25 09:46 Completed CBC w/Auto Diff [Complete Blood Count Auto Diff] Stat Lab 06/14/25 09:46 Completed CMP [Comprehensive Metabolic Panel] Stat Lab 06/14/25 09:46 Completed Magnesium Stat Lab 06/14/25 09:46 Completed PT INR [Prothrombin Time INR] Stat Lab 06/14/25 09:46 Completed Medical Decision Narrative: MDM In summary, this 35-year-old female presents to the emergency department today with left-sided numbness. Initial evaluation the patient hemodynamically stable, no obvious neurologic deficits, reporting a sensation of tingling and [id number] in left-sided face, left arm, left leg. Differential diagnosis includes but is not limited to complex migraine, BRAYAN stroke, MCA stroke, hemorrhagic stroke, carotid stenosis, TIA, conversion disorder. Based on these concerns, I ordered a complex imaging laboratory workup. On my initial evaluation the patient was hemodynamically stable and only mildly uncomfortable. She was able to move her arms and legs with full strength and dexterity. She reported decreased sensation but her sensory ability was largely intact. Though she did report some vague numbness and tingling along the left side of the body Patient received droperidol, Benadryl, lactated Ringer's, Toradol for treatment. Labs personally reviewed and interpreted demonstrate no leukocytosis, no anemia, no major metabolic abnormalities. CT imaging personally interpreted by me demonstrate no obvious vascular stenosis, no areas of infarction, no penumbra, no sign of acute intracranial abnormality. I reassessed the patient after treatment for migraine. She reported total resolution of her symptoms. I had a long discussion with the patient about the diagnosis of complex migraine versus transient ischemic attack. Though this patient's symptoms would have been a very odd presentation for a transient ischemic attack, I informed her that it was possible, and if she was concerned or felt that the symptoms were not attributable to a migraine, I would be comfortable reaching out to a neurologist for continued workup. The patient reported that she felt that her symptoms were reflective of a complex migraine and she was comfortable with discharged home with plans to follow-up with a neurologist outpatient. I was agreeable to this as my index of concern for TIA was significantly lower than my concern for complex migraine. Critical Care Critical Care Time Critical Care Time: No
[2025-06-14] MEDS: LACTATED RINGERS 1000ML 1,000 ML 999 ML IV (10:10)
[2025-06-14 10:11] LABS: INR 0.89 (0.9-1.1); Prothrombin Time 10.0 seconds (10.1-12.5)
[2025-06-14] MEDS: KETOROLAC 15MG/ML VIAL 15 MG IV (10:12)
[2025-06-14] MEDS: droPERidol 5MG/2ML VIAL 2.5 MG IV (10:13)
[2025-06-14 10:14] LABS: Albumin Level 4.5 g/dl (3.5-5.0); Chloride 101 mmol/L (98-107); Potassium 4.3 mmoL/L (3.5-5.1); Sodium 140 mmol/L (136-145)
[2025-06-14 10:17] LABS: Alanine Aminotransferase 25 U/L (12-78); Albumin/Globulin Ratio 1.7 (1.1-1.8); Alkaline Phosphatase 78 U/L (38-126); Anion Gap 13.3 mEq/L (5-15); Aspartate Amino Transferase 28 U/L (14-36); Bilirubin,Total 0.5 mg/dl (0.2-1.3); Blood Urea Nitrogen 11 mg/dl (7-17); Calcium 9.6 mg/dl (8.4-10.2); Carbon Dioxide 30 mmol/L (22.0-30.0); Creatinine Clearance Estimated 155 mL/min (50-200); Creatinine,Serum 0.80 mg/dl (0.52-1.04); Estimated Glomerular Filt Rate 82 ml/min (>60); GFR (African American) 99 ML/MIN (>60); Globulin 2.7 g/dL (1.3-3.2); Glucose 123 mg/dl (74-100); Magnesium 2.2 mg/dl (1.6-2.3); Total Protein,Serum 7.2 g/dl (6.3-8.2)
[2025-06-14] MEDS: 0.9 % SODIUM CHLORIDE 50 ML VIAL IV (10:31)
[2025-06-14] MEDS: IOPAMIDOL-370 (76%);100ML BOTTLE 80 ML IV (10:32)
[2025-06-14] MEDS: SODIUM CHLORIDE 0.9% 10ML SYR (RAD ONLY) 10 ML IV (10:32)
[2025-06-14 11:00] VITALS: BP 115/89; PULSE 85; O2SAT 96
[2025-06-14 12:06] VITALS: BP 115/80; PULSE 85; RESP 19; TEMP 36.7; O2SAT 99
[2025-06-14 12:09] LABS: HCG Qualitative, Serum Negative (Negative)
== END 2025-06-14 12:07 | disposition home or self-care (01) ==
PROVIDERS: Emergency Provider Student in an Organized Health Care Education/Training Program; PCP Family Medicine
DX: G43.909 Migraine, unspecified, not intractable, without status migrainosus (principal); R20.2 Paresthesia of skin; R11.0 Nausea
CPT/HCPCS: 70450; 70496; 70498; 80053; 83735; 84703; 85025; 85610; 93005; 96361; 96374; 96375; 99285; J1200; J1790; J1885; J7120; Q9967

== ENCOUNTER 2025-06-19 00:44 | Emergency (ER) | payer BC, SELFPAY ==
[2025-06-19 00:58] VITALS: BP 140/92; PULSE 81; RESP 16; TEMP 36.8; O2SAT 97; BMI 38.9
--- NOTE | 2025-06-19 01:05 | ED_ITS ---
Discharge Plan Disposition Patient Disposition: Home, Self-Care Prescriptions Prescriptions: No Action venlafaxine 150 mg capsule,extended release 24hr PO Patient Comments: TAKE 1 CAPSULE BY MOUTH ONCE DAILY WITH FOOD pravastatin 20 mg tablet PO Patient Comments: TAKE 1 TABLET BY MOUTH ONCE DAILY hydrocortisone 1 % ointment 1 applic topical BID PRN (Reason: itching) Qty: 28.35 0RF mupirocin [Centany] 2 % ointment 1 applic topical BID Qty: 15 0RF levothyroxine 50 mcg tablet See Rx Instructions .ROUTE .COMPLEX Qty: 90 3RF Dose Instruction: Take 1 tablet by mouth once daily Rx Instructions: Take 1 tablet by mouth once daily Referrals Follow up/Referrals: Bobby Novoa MD [Primary Care Provider, Medical] - See instructions Activity Restrictions/Add. Instructions Additional Instructions/Restrictions: Please follow-up with your primary care provider. Please return to the emergency department if you develop any new or worsening symptoms or become concerned for your health. Clinical Impressions Clinical Impression: Headache, migraine, intractable Qualifiers: Status migrainosus presence: with status migrainosus Print Language Print Language: French Discharge ED Provider: Aubrey Keene General Adult HPI General Chief complaint: Headache Stated complaint: 06/14/25 Complex Migriane; Worsening Symptoms Time Seen by Provider: 06/19/25 00:45 History of Present Illness HPI narrative: 35-year-old female with history of migraines, depression, thyroid disease, asthma presents for headache. She reports that her symptoms are typical of her normal migraine which include light and noise sensitivity, nausea, intermittent vision changes and dizziness. However, the symptoms are lasting much longer than normal. They normally last about a day, she reports this headache is been going on for about 6 days. She did take some Phenergan and Tylenol and ibuprofen earlier today without significant improvement. Related Data Home Medications ?Medication ?Instructions ?Recorded ?Confirmed pravastatin 20 mg tablet mg PO 06/01/25 06/01/25 venlafaxine 150 mg mg PO 06/01/25 06/01/25 capsule,extended release 24 hr Previous Rx's ?Medication ?Instructions ?Recorded levothyroxine 50 mcg tablet See Rx Instructions .Route 04/10/25 .COMPLEX #90 tabs hydrocortisone 1 % topical ointment 1 applic topical B ID PRN itching 06/01/25 #28.35 grams mupirocin 2 % topical ointment 1 applic topical BID #1 5 grams 06/01/25 (Centany) Allergies Allergy/AdvReac Type Severity Reaction Status Date / Time sulfamethoxazole (From Allergy Mild Rash Verified 06/01/25 12:43 Bactrim) trimethoprim (From Bactrim) Allergy Mild Rash Verified 06/01/25 12:43 PFSH [facility] Disclaimer: The information contained in this section may have been updated after the patient was seen, as this information can be updated by other users. 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 Dyspnea on exertion Deviated nasal septum Cyst of bone of right foot Asthma Thyroid disease Depression Anxiety Migraine Surgical History Hx of atrial septal defect repair History of ankle surgery History of exploratory laparotomy History of tubal ligation History of hysterectomy History of cholecystectomy Family History Other Heart attack Stroke Social History Smoking Status: Never smoker alcohol intake: never substance use type: denies use current occupational status: unemployed Travel in the last 8 weeks?: None household members: spouse and family housing: house current occupational exposures/hazards: No caffeine: Yes Have you lived/traveled outside US in past 30 days?: No Contact w/someone who lives/traveled outside US past 30 days?: No Exposure to someone with infectious disease in past 14 days?: No Do you have a fever (greater than 100.4 F or 38 C)?: No Have you tested positive for COVID-19?: No Exposed to someone with COVID-19 in past 14 days?: No Do you have a sore throat?: No Do you have a cough?: No Do you have any weakness?: No Do you have any diarrhea?: No Are you experiencing any unusual bleeding?: No Do you have any muscle aches/pain?: No Do you have any abdominal pain?: No Are you experiencing loss of taste or smell?: No Other 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 Have you received the Flu Vaccine for this season: No Have you received the Pneumonia Vaccine: No ROS Obtained: Yes All systems reviewed & no additional complaints except as documented Physical Exam General General appearance: alert and in no apparent distress Head Head exam: atraumatic and normocephalic Eye Eye exam: Present normal appearance, PERRL and EOMI ENT ENT exam: Present normal oropharynx and normal external ear exam Neck Neck exam: Present normal inspection and full ROM Chest Chest inspection: Present normal inspection and symmetric chest wall rise; Absent tenderness Respiratory Respiratory exam: Present normal lung sounds bilaterally; Absent respiratory distress Cardiovascular Cardiovascular exam: Present regular rate and normal rhythm Abdominal Exam Abdominal exam: Present soft; Absent distention, tenderness or guarding Extremities Exam Extremities exam: Present normal inspection; Absent edema or joint swelling Back Exam Back exam: Present normal inspection; Absent tenderness Neurological Exam Neurological exam: Present alert and oriented X3; Absent motor sensory deficit Psychiatric Psychiatric exam: Present normal affect and normal mood Skin Skin exam: Present warm, dry and normal color Lymphatic Lymphatic Findings: no adenopathy Medical Decision Making Medical Records Medical records reviewed: Yes I reviewed the patient's medical records. Screening: Per USPSTF and CDC recommendations, given the prevalence of disease in our region, it is our hospital?s policy to screen for HIV and viral Hepatitis for all patients aged 18 and over and those with ongoing risk factors. Luke Inquiry Pt receiving controlled substance: No Luke was queried for this patient: No Vital Signs: 06/19/25 00:58 Temperature 98.2 F Temperature Source Oral Pulse Rate [Left Radial] 81 Respiratory Rate 16 Blood Pressure [Right Arm] 140/92 H Blood Pressure Mean [Right Arm] 108 02 Sat by Pulse Oximetry 97 Oxygen Delivery Method Room Air Lab Data Lab results reviewed: Yes I reviewed the patient's lab results. Orders (Tests/Meds): ED MEDICATIONS Discontinued Medications Generic Name Dose Route Start Last Admin Trade Name Misbah PRN Reason Stop Dose Admin Acetaminophen 1,000 mg 06/19/25 00:50 06/19/25 01:18 Acetaminophen 500mg Tab PO 06/19/25 00:51 1,000 mg ONCE ONE Administration Dexamethasone Sodium Phosphate 8 mg 06/19/25 00:50 06/19/25 01:18 Dexamethasone 4mg/Ml 1ml Vial IV 06/19/25 00:51 8 mg ONCE ONE Administration Magnesium Sulfate 2 gm in 50 mls @ 150 mls/hr 06/19/25 00:50 06/19/25 01:53 Magnesium Sulfate 2gm/50ml Premix IV 06/19/25 01:09 Infused ONCE ONE Infusion Lactated Ringer's 1,000 mls @ 999 mls/hr 06/19/25 01:00 06/19/25 01:19 Lactated Ringer's 1000 Ml Bag IV 06/19/25 02:00 999 mls/hr .Q1H1M BRUNILDA Administration Ketorolac Tromethamine 30 mg 06/19/25 00:50 06/19/25 01:18 Ketorolac 30mg/Ml Vial IV 06/19/25 00:51 30 mg ONCE ONE Administration Prochlorperazine Edisylate 10 mg 06/19/25 00:50 06/19/25 01:18 Prochlorperazine 10mg/2ml Vial IV 06/19/25 00:51 10 mg ONCE ONE Administration ORDERS Category Date Time Status HIV Combo Stat Lab 06/19/25 01:07 Ordered Medical Decision Narrative: 35-year-old female with history of migraines presents for migraine headache lasting longer than normal. History was obtained via interactive discussion with patient. On arrival, patient is [afebrile, hemodynamically stable, satting appropriately, alert, oriented x4, GCS 15], moving all extremities spontaneously. Full physical exam performed and significant for no significant neurologic deficits on exam Differential includes but is not limited to migraine headache, tension headache, intracranial lesion. Low concern for intracranial lesion given chronic symptoms. Will provide migraine cocktail and reassess. Patient given Tylenol and Toradol Compazine fluid bolus Decadron mag. On reassessment, patient was sleeping comfortably. Reports migraine is improving/resolved. Given this, she was deemed appropriate for discharge and outpatient management. Return precautions given. Procedures Risk/Benefits of Procedure(s) Were Explained: Yes Critical Care Critical Care Time Critical Care Time: No
[2025-06-19] MEDS: KETOROLAC 30MG/ML VIAL 30 MG IV (01:18)
[2025-06-19] MEDS: ACETAMINOPHEN 500MG TAB 1000 MG PO (01:18)
[2025-06-19] MEDS: PROCHLORPERAZINE 10MG/2ML VIAL 10 MG IV (01:18)
[2025-06-19] MEDS: DEXAMETHASONE 4MG/ML 1ML VIAL 8 MG IV (01:18)
[2025-06-19] MEDS: LACTATED RINGERS 1000ML 1,000 ML 999 ML IV (01:19)
[2025-06-19] MEDS: MAGNESIUM SULFATE IN WATER 2 GM/50 ML PIGGYBACK IV (01:19)
[2025-06-19 02:34] VITALS: BP 140/92; PULSE 88; RESP 16; TEMP 36.9; O2SAT 97
== END 2025-06-19 02:41 | disposition home or self-care (01) ==
PROVIDERS: Emergency Provider Emergency Medicine; PCP Family Medicine
DX: G43.901 Migraine, unspecified, not intractable, with status migrainosus (principal)
CPT/HCPCS: 96361; 96365; 96375; 99284; J0780; J1100; J1885; J3475; J7120

== ENCOUNTER 2025-08-30 23:01 | Emergency (ER) | payer BC, SELFPAY ==
[2025-08-30 23:01] VITALS: BP 139/82; PULSE 80; RESP 20; TEMP 36.9; O2SAT 99; BMI 40.4
--- NOTE | 2025-08-30 23:05 | ECG_ITS ---
APPROVED REPORT Exam: Resting ECG HR:75 bpm ECG Measurements Heart Rate 75 AXES AL 163 P 36 QRSd 78 QRS 91 QT 388 T 58 QTc 416 Conclusion SINUS RHYTHM BORDERLINE RIGHT AXIS DEVIATION [QRS AXIS > 90] No STEMI Electronically signed by : ROXANE MOSQUEDA, 08/31/2025 05:22:29
[2025-08-30 23:13] VITALS: PULSE 70
[2025-08-30 23:19] VITALS: BP 137/74; PULSE 70; RESP 16; O2SAT 98
--- OUTSIDE RECORDS SUMMARY | 2025-08-30 23:30 | XMS_ITS | Clinical Summary ---
Author Organization Healthcare Address [address] [place] [address] Care Team Providers Care Marketing Area Manager Name Role Phone Sonido Shannon MD Primary Care Provider [phone] Family History 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 Relation Name Comments [...] of Treatment Not on file Care Teams Marketing Area Manager Relationship Specialty Start Date End Date Sonido Shannon [place] [address] PCP - General 02/02/21
--- NOTE | 2025-08-30 23:32 | XR_ITS ---
PROCEDURE INFORMATION: Exam: XR Chest Exam date and time: 08/30/2025 11:30 PM Age: 35 years old Clinical indication: Pain; Chest pressure; Additional info: Recent illness, cough, cp TECHNIQUE: Imaging protocol: Radiologic exam of the chest. Views: 2 views. COMPARISON: CR XR CHEST 2V 03/08/2024 8:35 PM FINDINGS: Limitations: Suboptimal positioning. Tubes, catheters and devices: Leads overlying chest. Lungs: No definite consolidation. Pleural spaces: No significant pleural effusion. No pneumothorax. Heart/Mediastinum: No cardiomegaly. Bones/joints: No displaced fracture. Soft tissues: Unremarkable. Intraperitoneal space: Surgical clips within RIGHT upper quadrant. IMPRESSION: No definite acute cardiopulmonary disease. If symptoms persist, consider CT for further evaluation.
--- NOTE | 2025-08-30 23:36 | ED_ITS ---
Discharge Plan Disposition Patient Disposition: Home, Self-Care Condition: Good Prescriptions Prescriptions: New ondansetron 4 mg tablet,disintegrating 4 mg PO Q6H PRN (Reason: nausea and vomiting) Qty: 10 0RF No Action azithromycin [Zithromax Z-Thomas] 250 mg tablet 250 mg PO QDAY 5 Days Qty: 6 0RF fluticasone propionate [Flonase Allergy Relief] 50 mcg/actuation spray,suspension 1 spray intranasal QDAY Qty: 16 0RF Rx Instructions: administer into each nostril venlafaxine 150 mg capsule,extended release 24hr PO Patient Comments: TAKE 1 CAPSULE BY MOUTH ONCE DAILY WITH FOOD pravastatin 20 mg tablet PO Patient Comments: TAKE 1 TABLET BY MOUTH ONCE DAILY hydrocortisone 1 % ointment 1 applic topical BID PRN (Reason: itching) Qty: 28.35 0RF mupirocin [Centany] 2 % ointment 1 applic topical BID PRN ibuprofen 800 mg tablet 800 mg PO TID PRN Patient Comments: TAKE 1 TABLET BY MOUTH THREE TIMES DAILY NEEDED acetaminophen-codeine 300-30 mg tablet 2 tab PO Q6H Patient Comments: TAKE 2 TABLETS BY MOUTH EVERY 6 HOURS magnesium 200 mg tablet 200 mg PO DAILY Ajovy Autoinjector 225 mg/1.5 mL auto-injector 225 mg SQ QMONTH Qty: 1.5 5RF rizatriptan 10 mg tablet,disintegrating See Rx Instructions PO ONCE Qty: 10 5RF Rx Instructions: take 1 tab at onset of headache; if no relief may repeat 1 tab after at least 2 hrs; max = 2 tabs/24 hr orally once; levothyroxine 50 mcg tablet See Rx Instructions .ROUTE .COMPLEX Qty: 90 3RF Dose Instruction: Take 1 tablet by mouth once daily Rx Instructions: Take 1 tablet by mouth once daily Referrals Follow up/Referrals: Danielle Garcia APRN [Primary Care Provider, Medical] - See instructions Activity Restrictions/Add. Instructions Additional Instructions/Restrictions: You were evaluated in the ER and are believed to be appropriate for discharge at this time. Continue taking any home medications as previously prescribed. I called in a prescription for Zofran for nausea, take this if needed. You can take Tylenol or ibuprofen if needed for pain, do not exceed the recommended dose on the bottle. Drink water and eat a small snack each time you take these medications to avoid side effects. Stay well-hydrated. Continue taking the antibiotics you have been previously prescribed and finish that course as directed. Follow-up with your primary care doctor for reevaluation in 2 to 3 days. Return to the ER with any new, worsening, or otherwise concerning symptoms. Clinical Impressions Clinical Impression: Headache, Chest pain, Nasal congestion, Nausea Print Language Print Language: Maltese Discharge ED Provider: Tl Ortega General Chief Complaint: Chest Pain Stated Complaint: chest pain Time Seen by Provider: 08/30/25 23:22 Mode of Arrival: Ambulatory Source of Information: Patient Description of Symptoms (Recalled from ER Triage Doc. by RN): patient presents to ED for chest pain that started today around 1700. patient stated the pain is left side chest and center chest. she also states that her pain radiates down her left arm, she rates the pain 7/10. History of Present Illness HPI narrative: 35-year-old female with history of recently diagnosed sinus infection on azithromycin, migraines, kidney stones, previous partial hysterectomy presents to the ER complaining of chest pain that started 6 to 7 hours prior to arrival. Patient reports it is sharp stabbing in the central part of her chest radiating to the left side. She denies any numbness, tingling, or weakness. She states nothing specific seems to make it better or worse regardless of position, breathing, exertion, etc. She does report nausea that has been going on for a few days as well as mild headache in the back of her head which has been persistent all day. She denies neck pain or painful range of motion, no vision changes, numbness, tingling, or weakness. She states she took ibuprofen approximately 10 hours ago but has not taken any other medications for her symptoms. She is taking her prescribed azithromycin as directed but has not had any change in her congestion or pressure in her face. She has not had fevers or swelling of the face even when she was diagnosed with the sinus infection. She states she originally got sick around and was treated with antibiotics for suspected sinus infection and ear infection and seemed to get somewhat better but then more recently developed green nasal discharge in the mornings though it is clear at night. She states that is what prompted her to be seen at [facility] where she was diagnosed with sinus infection and put on azithromycin. She has not had fevers, chills, difficulty breathing, vomiting, diarrhea, constipation, dysuria, hematuria, or other associated symptoms. Related Data Home Medications ?Medication ?Instructions ?Recorded ?Confirmed pravastatin 20 mg tablet mg PO 06/01/25 08/27/25 venlafaxine 150 mg mg PO 06/01/25 08/27/25 capsule,extended release 24 hr acetaminophen 300 mg-codeine 30 mg 2 tab PO Q6H 08/27/25 tablet ibuprofen 800 mg tablet 800 mg PO TID PRN 06/28/25 1 10/28/24 magnesium 200 mg tablet 200 mg PO DAILY 06/28/2503/16 mupirocin 2 % topical ointment 1 applic topical BID TN N 06/28/25 08/27/25 (Berthaany) Previous Rx's ?Medication ?Instructions ?Recorded levothyroxine 50 mcg tablet See Rx Instructions .Route 04/10/25 .COMPLEX #90 tabs hydrocortisone 1 % topical ointment 1 applic topical B ID PRN itching 06/01/25 #28.35 grams fremanezumab-vfrm 225 mg/1.5 mL 225 mg (1.5 mL) SQ QMO NTH Migraine 06/28/25 subcutaneous auto-injector (Ajovy) #1.5 mL rizatriptan 10 mg disintegrating See Rx Instructions P O ONCE 06/28/25 tablet Migraine #10 tabs azithromycin 250 mg tablet 250 mg PO QDAY 2 tabs day 1 , then 08/27/25 (Zithromax Z-Thomas) 1 tab days 2-5 5 days #6 ta bs fluticasone propionate 50 1 spray intranasal QDAY #16 grams 08/27/25 mcg/actuation nasal spray,suspension (Flonase Allergy Relief) ondansetron 4 mg disintegrating 4 mg PO Q6H PRN nausea and 08/31/25 tablet vomiting #10 tabs Allergies Allergy/AdvReac Type Severity Reaction Status Date / Time sulfamethoxazole (From Allergy Mild Rash Verified 08/27/25 15:27 Bactrim) trimethoprim (From Bactrim) Allergy Mild Rash Verified 08/27/25 15:27 PFSH PFSH Disclaimer: The information contained in this section may have been updated after the patient was seen, as this information can be updated by other users. 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 History of neuropathy History of kidney stones Sleep-disordered breathing No snoring, nonrestorative sleep, BMI 40. Snoring Dyspnea on exertion Deviated nasal septum Cyst of bone of right foot Asthma Higher doses of Beta-manasa for headache prophylaxis is contraindicated due to asthma. Thyroid disease Depression Anxiety Migraine Surgical History Hx of atrial septal defect repair History of ankle surgery History of exploratory laparotomy History of tubal ligation History of hysterectomy History of cholecystectomy Family History Other Cancer Coronary artery disease Diabetes Heart attack Stroke Thyroid disorder Social History Smoking Status: Never smoker years smoked: 7 how long ago did patient quit smokin years ago alcohol intake: never substance use type: denies use current occupational status: employed Travel in the last 8 weeks?: None household members: spouse and family housing: house marital status: current occupational exposures/hazards: No caffeine: Yes Other 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 Have you received the Flu Vaccine for this season: No Have you received the Pneumonia Vaccine: No ROS Obtained: Yes Systems reviewed as appropriate & no additional complaints except as documented per HPI Physical Exam General General appearance: alert and in no apparent distress Head Head exam: atraumatic and normocephalic Eye Eye exam: Present PERRL and EOMI ENT ENT exam: Present mucous membranes moist Neck Neck exam: Present normal inspection and full ROM; Absent meningismus Chest Chest inspection: Present symmetric chest wall rise and tenderness (Anterior chest wall at the costochondral junctions bilaterally with no evidence of trauma ) Respiratory Respiratory exam: Present normal lung sounds bilaterally; Absent respiratory distress, wheezes or stridor Cardiovascular Cardiovascular exam: Present regular rate and normal rhythm Abdominal Exam Abdominal exam: Present soft; Absent distention, tenderness, guarding or rebound Extremities Exam Extremities exam: Present full ROM Neurological Exam Neurological exam: Present alert and oriented X3; Absent motor sensory deficit Psychiatric Psychiatric exam: Present normal affect and normal mood Skin Skin exam: Present warm and dry HEART Score HEART Score HEART Score assessment performed?: Yes History (anamnesis): Slightly suspicious ECG: Normal Age: <45 years Risk factors: 1-2 risk factors Troponin: </= normal limit HEART Score: 1 Critical Care Critical Care Time Critical Care Time: No Medical Decision Making Medical Records Medical records reviewed: Yes I reviewed the patient's medical records. Luke Inquiry Pt receiving controlled substance: No Vital Signs Vital Signs: 08/30/25 23:01 08/30/25 23:13 08/30/25 23:19 Temperature 98.5 F Temperature Source Oral Pulse Rate 70 70 Pulse Rate [Right Radial] 80 Respiratory Rate 20 16 Blood Pressure 137/74 Blood Pressure [Right Arm] 139/82 Blood Pressure Mean [Right Arm] 101 Blood Pressure Source [Right Arm] Automatic Cuff Blood Pressure Position [Right Arm] Sitting 02 Sat by Pulse Oximetry 99 98 Oxygen Delivery Method Room Air Room Air 08/31/25 00:02 08/31/25 00:47 Temperature 98.6 F Temperature Source Tympanic Pulse Rate 76 64 Pulse Rate [Right Radial] Respiratory Rate 16 16 Blood Pressure 142/97 H 122/77 Blood Pressure [Right Arm] Blood Pressure Mean [Right Arm] Blood Pressure Source [Right Arm] Blood Pressure Position [Right Arm] 02 Sat by Pulse Oximetry 99 Oxygen Delivery Method Room Air Room Air Lab Data Labs: Lab Results 08/30/25 23:09: WBC 8.6, RBC 4.13 L, Hgb 13.9, Hct 38.9, MCV 94.2, MCH 33.7 H, M CHC 35.7 H, RDW 11.9, Plt Count 260, MPV 9.2, Neut % (Auto) 54.8, Lymph % (Auto) 32.5, [place] % (Auto) 8.5, Eos % (Auto) 3.4, Baso % (Auto) 0.6, Neut # (Auto) 4.7, Lymph # (Auto) 2.8, [place] # (Auto) 0.7, Eos # (Auto) 0.3, Baso # (Auto) 0.1, PT 9.8 L, INR 0.87 L, Sodium 138, Potassium 3.7, Chloride 104, Carbon Dioxide 26, Anion Gap 11.7, BUN 14, Creatinine 0.70, Estimated Creat Clear 183, Estimated GFR 95, Est GFR ( Amer) 115, Glucose 126 H, Calcium 9.1, Magnesium 2.1, Total Bilirubin 0.5, AST 31, ALT 32, Alkaline Phosphatase 62, Troponin I < 0.01, C-Reactive Protein 4.6 H, Total Protein 7.1, Albumin 4.2, Globulin 2.9, Albumin/Globulin Ratio 1.4 08/30/25 23:09 08/30/25 23:09 Response Orders (Tests/Meds): ED MEDICATIONS Discontinued Medications Generic Name Dose Route Start Last Admin Trade Name Misbah PRN Reason Stop Dose Admin Acetaminophen 1,000 mg 08/30/25 23:32 08/30/25 23:57 Acetaminophen 500mg Tab PO 08/30/25 23:33 1,000 mg ONCE ONE Administration Aspirin 324 mg 08/30/25 23:33 08/30/25 23:56 Aspirin 81mg Chewable Tablet PO 08/30/25 23:34 324 mg ONCE ONE Administration Diphenhydramine HCl 25 mg 08/30/25 23:32 08/30/25 23:56 Diphenhydramine 50mg/Ml Vial IV 08/30/25 23:33 25 mg ONCE ONE Administration Lactated Ringer's 1,000 mls @ 999 mls/hr 08/30/25 23:34 08/30/25 23:57 Lactated Ringer's 1000 Ml Bag IV 08/31/25 00:34 999 mls/hr .Q1H1M ONE Administration Ketorolac Tromethamine 15 mg 08/30/25 23:32 08/30/25 23:56 Ketorolac 30mg/Ml Vial IV 08/30/25 23:33 15 mg ONCE ONE Administration Prochlorperazine Maleate 10 mg 08/30/25 23:32 08/30/25 23:57 Prochlorperazine 10mg Tablet PO 08/30/25 23:33 10 mg ONCE ONE Administration ORDERS Category Date Time Status CXR 2 view (NOT portable) [XR chest 2V] Stat Exams 08/30/25 23:32 Completed POCUS Point of Care (ER Only) Stat Exams 08/30/25 23:35 Ordered CBC w/Auto Diff [Complete Blood Count Auto Diff] Stat Lab 08/30/25 23:09 Completed CMP [Comprehensive Metabolic Panel] Stat Lab 08/30/25 23:09 Completed CRP [C-Reactive Protein] Stat Lab 08/30/25 23:09 Completed Full Resp Panel w/COVID ([facility]) Routine Lab 08/31/25 00:02 Received Magnesium Stat Lab 08/30/25 23:09 Completed PT INR [Prothrombin Time INR] Stat Lab 08/30/25 23:09 Completed Trop I [Troponin I] Stat Lab 08/30/25 23:09 Completed Troponin I Q3H Lab 08/31/25 02:45 Ordered Troponin I Q3H Lab 08/31/25 05:45 Ordered MDM Narrative Medical Decision Narrative: In summary, this 35-year-old female with comorbidities described in the HPI presents to the emergency department today with chest pain which is her primary complaint but also reports mild headache and nausea. On initial evaluation patient is hemodynamically stable, afebrile, GCS 15, well-appearing on arrival. She has no neurologic deficits, cardiopulmonary exam is benign but patient does have anterior chest wall tenderness at the costochondral junctions, benign abdomen, remainder of exam benign. Differential diagnosis includes but is not limited to ACS, I considered PE but patient is PERC negative, I considered viral syndrome, pneumonia, pneumothorax, migraine, tension headache, I considered the possibility of sinus infection but patient is already being treated with azithromycin and is afebrile with no swelling or redness of the face and only mild tenderness over the sinuses so I have lower suspicion for this, I also considered the possibility of costochondritis which does fit clinically as well as the possibility of pericarditis though I have lower suspicion for this since patient has had no relief with positional changes, she does not have pain with inspiration, and she has a normal-appearing ECG. Based on these concerns, I ordered hematologic and serum labs, cardiac workup, viral swab, inflammatory markers. ECG personally interpreted demonstrates sinus rhythm, rate 75, borderline right axis, normal TN and QTc, no STEMI. Specifically regarding my concern for potential pericarditis patient has no ST elevation or TN depression Patient received aspirin, Benadryl, Tylenol, Toradol, Compazine, IV fluids initially for treatment. Labs personally reviewed demonstrate no leukocytosis or anemia, normal platelets. The lack of leukocytosis is quite reassuring against significant infectious burden, PT/INR nonactionable, CMP nonactionable, good kidney function, no transaminitis, CRP barely elevated at 4.6, nonspecific and nonactionable at this time. Troponin undetectably low less than 0.01 is very reassuring in setting of nonischemic ECG and patient having more than 6 hours of symptoms. If they were cardiac in etiology I would expect her troponin to be elevated by this time. Heart score 1. I do not believe she requires further workup or intervention from a cardiac standpoint. XR personally interpreted demonstrates no lobar infiltrate or pneumothorax, see radiology read for final interpretation. On reassessment patient has had improvement of symptoms. She now only has discomfort in the chest with palpation of the anterior chest wall most consistent with costochondritis. I performed and personally interpreted [id number] ultrasound of the heart and do not appreciate any pericardial effusion or other acute abnormality, see procedure note for full details. Headache is improving. She has no neurologic deficits and looks well. I believe she is appropriate for discharge at this time and she is comfortable with this plan. I prescribed Zofran for outpatient management of symptoms. I recommended she continue and finish the course of antibiotic she had been prescribed by [facility]. Viral swab is pending but I told the patient I would call her if there is a finding that would necessitate any change in management which is unlikely. Patient was given instructions on symptomatic management, follow up instructions, and return precautions for the emergency department. Patient indicated understanding and was discharged in stable condition.
[2025-08-30 23:40] LABS: Hematocrit 38.9 % (37.0-47.0); Hemoglobin 13.9 g/dL (12.2-16.2); Immature Granulocytes % 0.2 %; Mean Corpuscular HGB Conc 35.7 g/dL (31.8-35.4); Mean Corpuscular Hemoglobin 33.7 pg (27.0-31.2); Mean Corpuscular Volume 94.2 fl (81-99); Nucleated Red Blood Cells % 0 %; Platelet Count 260 K/mm3 (142-424); Red Blood Count 4.13 M/mm3 (4.20-5.40); Red Cell Distribution Width-SD 40.9 fL; White Blood Count 8.6 K/mm3 (4.8-10.8)
[2025-08-30 23:47] LABS: Alanine Aminotransferase 32 U/L (12-78); Albumin Level 4.2 g/dl (3.5-5.0); Albumin/Globulin Ratio 1.4 (1.1-1.8); Alkaline Phosphatase 62 U/L (38-126); Anion Gap 11.7 mEq/L (5-15); Aspartate Amino Transferase 31 U/L (14-36); Bilirubin,Total 0.5 mg/dl (0.2-1.3); Blood Urea Nitrogen 14 mg/dl (7-17); Calcium 9.1 mg/dl (8.4-10.2); Carbon Dioxide 26 mmol/L (22.0-30.0); Chloride 104 mmol/L (98-107); Creatinine Clearance Estimated 183 mL/min (50-200); Creatinine,Serum 0.70 mg/dl (0.52-1.04); Estimated Glomerular Filt Rate 95 ml/min (>60); GFR (African American) 115 ML/MIN (>60); Globulin 2.9 g/dL (1.3-3.2); Glucose 126 mg/dl (74-100); INR 0.87 (0.9-1.1); Magnesium 2.1 mg/dl (1.6-2.3); Potassium 3.7 mmoL/L (3.5-5.1); Prothrombin Time 9.8 seconds (10.1-12.5); Sodium 138 mmol/L (136-145); Total Protein,Serum 7.1 g/dl (6.3-8.2)
[2025-08-30 23:52] LABS: C-Reactive Protein 4.6 mg/L (0-4)
[2025-08-30] MEDS: ASPIRIN 81MG CHEWABLE TABLET 324 MG PO (23:56)
[2025-08-30] MEDS: KETOROLAC 30MG/ML VIAL 15 MG IV (23:56)
[2025-08-30] MEDS: ACETAMINOPHEN 500MG TAB 1000 MG PO (23:57)
[2025-08-30] MEDS: PROCHLORPERAZINE 10MG TABLET 10 MG PO (23:57)
[2025-08-30] MEDS: LACTATED RINGERS 1000ML 1,000 ML 999 ML IV (23:57)
[2025-08-31 00:02] VITALS: BP 142/97; PULSE 76; RESP 16; O2SAT 99
[2025-08-31 00:09] LABS: Troponin I < 0.01 ng/ml (0.00-0.034)
[2025-08-31 00:42] LABS: Adenovirus,PCR Not Detected (NotDetected); Chlamydophila Pneumoniae, PCR Not Detected (NotDetected); Coronavirus 19, PCR Not Detected (NotDetected); Coronovirus HKU1,PCR Not Detected (NotDetected); Influenza A, PCR Not Detected (NotDetected); Influenza AH1, 2009 Not Detected (NotDetected); Influenza AH1, PCR Not Detected (NotDetected); Influenza AH3,PCR Not Detected (NotDetected); Influenza B, PCR Not Detected (NotDetected); Mycoplasma Pneumoniae, PCR Not Detected (NotDetected); Parainfluenza 1, PCR Not Detected (NotDetected); Parainfluenza 2, PCR Not Detected (NotDetected); Parainfluenza 3, PCR Not Detected (NotDetected); Parainfluenza 4, PCR Not Detected (NotDetected)
[2025-08-31 00:47] VITALS: BP 122/77; PULSE 64; RESP 16; TEMP 37; O2SAT 99
== END 2025-08-31 00:59 | disposition home or self-care (01) ==
PROVIDERS: Emergency Provider Emergency Medicine; PCP Nurse Practitioner
DX: R07.9 Chest pain, unspecified (principal); R11.0 Nausea; R51.9 Headache, unspecified; Z88.1 Allergy status to other antibiotic agents; Z87.891 Personal history of nicotine dependence
CPT/HCPCS: 0223U; 71046; 80053; 83735; 84484; 85025; 85610; 86140; 93005; 96374; 96375; 99285; J1200; J1885; J7120; Q0164

== ENCOUNTER 2025-09-04 15:16 | Emergency (ER) | payer BC, SELFPAY ==
[2025-09-04 15:21] VITALS: BP 140/90; PULSE 76; O2SAT 99
[2025-09-04 15:23] VITALS: BP 146/90; PULSE 70; RESP 16; TEMP 36.9; O2SAT 99; BMI 40.4
--- NOTE | 2025-09-04 15:26 | HMH.EDGENADL ---
Discharge Plan Disposition Patient Disposition: Home, Self-Care Condition: Good Prescriptions Prescriptions: New amoxicillin-pot clavulanate 875-125 mg tablet 1 tab PO BID Qty: 20 0RF oxycodone 5 mg tablet 5 mg PO DAILY Qty: 4 0RF No Action azithromycin [Zithromax Z-Thomas] 250 mg tablet 250 mg PO QDAY 5 Days Qty: 6 0RF fluticasone propionate [Flonase Allergy Relief] 50 mcg/actuation spray,suspension 1 spray intranasal QDAY Qty: 16 0RF Rx Instructions: administer into each nostril venlafaxine 150 mg capsule,extended release 24hr PO Patient Comments: TAKE 1 CAPSULE BY MOUTH ONCE DAILY WITH FOOD pravastatin 20 mg tablet PO Patient Comments: TAKE 1 TABLET BY MOUTH ONCE DAILY hydrocortisone 1 % ointment 1 applic topical BID PRN (Reason: itching) Qty: 28.35 0RF mupirocin [Centany] 2 % ointment 1 applic topical BID PRN ibuprofen 800 mg tablet 800 mg PO TID PRN Patient Comments: TAKE 1 TABLET BY MOUTH THREE TIMES DAILY NEEDED acetaminophen-codeine 300-30 mg tablet 2 tab PO Q6H Patient Comments: TAKE 2 TABLETS BY MOUTH EVERY 6 HOURS magnesium 200 mg tablet 200 mg PO DAILY Ajovy Autoinjector 225 mg/1.5 mL auto-injector 225 mg SQ QMONTH Qty: 1.5 5RF rizatriptan 10 mg tablet,disintegrating See Rx Instructions PO ONCE Qty: 10 5RF Rx Instructions: take 1 tab at onset of headache; if no relief may repeat 1 tab after at least 2 hrs; max = 2 tabs/24 hr orally once; levothyroxine 50 mcg tablet See Rx Instructions .ROUTE .COMPLEX Qty: 90 3RF Dose Instruction: Take 1 tablet by mouth once daily Rx Instructions: Take 1 tablet by mouth once daily ondansetron 4 mg tablet,disintegrating 4 mg PO Q6H PRN (Reason: nausea and vomiting) Qty: 10 0RF Referrals Follow up/Referrals: Danielle Garcia APRN [Primary Care Provider, Medical] - See instructions Activity Restrictions/Add. Instructions Additional Instructions/Restrictions: Take the antibiotics as prescribed for 10 days. Call your dentist to get an appointment. Take the oxycodone only for severe pain. Take tylenol and ibuprofen around the clock for the next 3 days. Return for any facial swelling, inability to open your mouth, fevers or any other acute symptoms. Clinical Impressions Clinical Impression: Dental infection Stand Alone Forms Stand Alone Forms: Work/School Release Print Language Print Language: Wolof Discharge ED Provider: Galina Price General Adult HPI General Chief complaint: Dental/Oral Stated complaint: Left side jaw pain and swelling Time Seen by Provider: 09/04/25 15:21 History of Present Illness HPI narrative: Patient is a 35-year-old female who presents to the emergency department with dental pain. Patient states that she has been having upper and lower dental pain for the last few days. Patient states that she tried to call her dentist and was unable to get into them. Patient states that she is trying to get into a new dentist tomorrow. Patient denies any facial swelling. Patient states that she has not had any difficulty swallowing. Patient has not had any fevers. States that she has a broken crown as well as a broken tooth. Related Data Home Medications ?Medication ?Instructions ?Recorded ?Confirmed pravastatin 20 mg tablet mg PO 06/01/25 08/27/25 venlafaxine 150 mg mg PO 06/01/25 08/27/25 capsule,extended release 24 hr acetaminophen 300 mg-codeine 30 mg 2 tab PO Q6H 06/28/25 08/27/25 tablet ibuprofen 800 mg tablet 800 mg PO TID PRN 06/28/25 08/27/25 magnesium 200 mg tablet 200 mg PO DAILY 06/28/25 08/27/25 mupirocin 2 % topical ointment 1 applic topical BID PRN 06/28/25 [facility] Previous Rx's ?Medication ?Instructions ?Recorded levothyroxine 50 mcg tablet See Rx Instructions .Route 04/10/25 .COMPLEX #90 tabs hydrocortisone 1 % topical ointment 1 applic topical BID PRN itching 06/01/25 #28.35 grams fremanezumab-vfrm 225 mg/1.5 mL 225 mg (1.5 mL) SQ QMONTH Migraine 06/28/25 subcutaneous auto-injector (Ajovy) #1.5 mL rizatriptan 10 mg disintegrating See Rx Instructions PO ONCE 06/28/25 tablet Migraine #10 tabs azithromycin 250 mg tablet 250 mg PO QDAY 2 tabs day 1, then 08/27/25 (Zithromax Z-Thomas) 1 tab days 2-5 5 days #6 tabs fluticasone propionate 50 1 spray intranasal QDAY #16 grams 08/27/25 mcg/actuation nasal spray,suspension (Flonase Allergy Relief) ondansetron 4 mg disintegrating 4 mg PO Q6H PRN nausea and 08/31/25 tablet vomiting #10 tabs amoxicillin 875 mg-potassium 1 tab PO BID #20 tabs 09/04/25 clavulanate 125 mg tablet oxycodone 5 mg tablet 5 mg PO DAILY #4 tabs 09/04/25 Allergies Allergy/AdvReac Type Severity Reaction Status Date / Time sulfamethoxazole (From Allergy Mild Rash Verified 08/27/25 15:27 Bactrim) trimethoprim (From Bactrim) Allergy Mild Rash Verified 08/27/25 15:27 [facility] Disclaimer: The information contained in this section may have been updated after the patient was seen, as this information can be updated by other users. 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 History of neuropathy History of kidney stones Sleep-disordered breathing No snoring, nonrestorative sleep, BMI 40. Snoring Dyspnea on exertion Deviated nasal septum Cyst of bone of right foot Asthma Higher doses of Beta-manasa for headache prophylaxis is contraindicated due to asthma. Thyroid disease Depression Anxiety Migraine Surgical History Hx of atrial septal defect repair History of ankle surgery History of exploratory laparotomy History of tubal ligation History of hysterectomy History of cholecystectomy Family History Other Cancer Coronary artery disease Diabetes Heart attack Stroke Thyroid disorder Social History Smoking Status: Never smoker years smoked: 7 how long ago did patient quit smokin years ago alcohol intake: never substance use type: denies use current occupational status: employed Travel in the last 8 weeks?: None household members: spouse and family housing: house marital status: current occupational exposures/hazards: No caffeine: Yes Have you lived/traveled outside [place] in past 30 days?: No Contact w/someone who lives/traveled outside [place] past 30 days?: No Exposure to someone with infectious disease in past 14 days?: No Do you have a fever (greater than 100.4 F or 38 C)?: No Have you tested positive for COVID-19?: No Exposed to someone with COVID-19 in past 14 days?: No Do you have a sore throat?: No Do you have a cough?: No Do you have any weakness?: No Do you have any diarrhea?: No Are you experiencing any unusual bleeding?: No Do you have any muscle aches/pain?: No Do you have any abdominal pain?: No Are you experiencing loss of taste or smell?: No Other 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 Have you received the Flu Vaccine for this season: No Have you received the Pneumonia Vaccine: No ROS Obtained: Yes All systems reviewed & no additional complaints except as documented and Yes Systems reviewed as appropriate & no additional complaints except as documented Physical Exam General General appearance: alert and in no apparent distress Head Head exam: atraumatic, normocephalic and normal inspection Eye Eye exam: Present normal appearance, PERRL and EOMI; Absent scleral icterus ENT ENT exam: Present normal exam and normal external ear exam Neck Neck exam: Present normal inspection, full ROM and other (mouth with dental carries and poor dentition. L upper tooth broken, cap removed on bottom molar. No periapical abscess. No submandibular swelling. ) Chest Chest inspection: Present normal inspection and symmetric chest wall rise Respiratory Respiratory exam: Present normal lung sounds bilaterally; Absent respiratory distress or wheezes Cardiovascular Cardiovascular exam: Present regular rate, normal rhythm and normal heart sounds Abdominal Exam Abdominal exam: Present soft and distention; Absent tenderness, guarding or rebound Extremities Exam Extremities exam: Present normal inspection and full ROM Back Exam Back exam: Present normal inspection and full ROM Neurological Exam Neurological exam: Present alert and oriented X3 Psychiatric Psychiatric exam: Present normal affect and normal mood Skin Skin exam: Present warm and dry Medical Decision Making Medical Records Medical records reviewed: Yes I reviewed the patient's medical records. Screening: Per USPSTF and CDC recommendations, given the prevalence of disease in our region, it is our hospital?s policy to screen for HIV and viral Hepatitis for all patients aged 18 and over and those with ongoing risk factors. Luke Inquiry Pt receiving controlled substance: No Vital Signs: 09/04/25 15:21 09/04/25 15:23 09/04/25 15:30 Temperature 98.5 F Temperature Source Oral Pulse Rate 76 81 Pulse Rate [Right Brachial] 70 Respiratory Rate 16 Blood Pressure 140/90 127/83 Blood Pressure [Right Arm] 146/90 H Blood Pressure Mean [Right Arm] 108 Blood Pressure Source Blood Pressure Source [Right Arm] Automatic Cuff Blood Pressure Position Blood Pressure Position [Right Arm] Sitting 02 Sat by Pulse Oximetry 99 99 98 Oxygen Delivery Method Room Air Room Air Room Air 09/04/25 16:00 09/04/25 16:01 09/04/25 17:01 Temperature 98.5 F Temperature Source Oral Pulse Rate 82 78 78 Pulse Rate [Right Brachial] Respiratory Rate 16 Blood Pressure 149/108 H 154/108 H 154/108 H Blood Pressure [Right Arm] Blood Pressure Mean [Right Arm] Blood Pressure Source Automatic Cuff Blood Pressure Source [Right Arm] Blood Pressure Position Sitting Blood Pressure Position [Right Arm] 02 Sat by Pulse Oximetry 99 98 Oxygen Delivery Method Room Air Room Air Room Air Lab Data Lab results reviewed: Yes I reviewed the patient's lab results. Orders (Tests/Meds): ED MEDICATIONS Discontinued Medications Generic Name Dose Route Start Last Admin Trade Name Freq PRN Reason Stop Dose Admin Amoxicillin/Clavulanate Potassium 1 each 09/04/25 15:45 09/04/25 15:59 Amoxicillin/Clavulanate Potassium 875/125mg Tablet PO 09/04/25 15:46 1 each ONCE ONE Administration Bupivacaine HCl/Epinephrine Bitart 10 ml 09/04/25 15:46 Bupivacaine 0.5% W/Epi 1:200,000 10ml Vial IJ 09/04/25 15:47 ONCE ONE Oxycodone HCl 5 mg 09/04/25 15:45 09/04/25 15:59 Oxycodone 5mg Immediate Release Tablet PO 09/04/25 15:46 5 mg ONCE ONE Administration Medical Decision Narrative: Patient is an otherwise healthy 35-year-old female who presented to the emergency department with dental pain. On arrival, patient was hemodynamically stable with unremarkable vital signs. Differential includes but not limited to: Dental caries, periapical abscess, facial abscess, Ludwigs, amonst others. On exam, patient had very poor dentition, patient had a left upper molar with a broken tooth and patient had a left lower molar with the removed. Patient had otherwise no evidence of periapical abscess. Patient had no facial swelling. Patient no submandibular swelling to suggest Hieu's. Patient was able to fully open her mouth no trismus. Patient was given a dental block given a dose of oxycodone in the emergency department. Patient was given dose of Augmentin and patient was discharged home with Augmentin. Patient was advised to follow-up with her dentist. Patient was given return precautions and patient was otherwise discharged home in stable condition. Procedures Nerve Block Nerve Block 1: Time out performed: Yes Local Anesthetic: bupivacaine 0.25% Amount of anesthesia used (mL): 4 Side: Left Nerve Blocks: other (dental block) Intraoral Nerve Block: superior alveolar and inferior alveolar Procedure Successful: Yes Patient Tolerated Procedure: well Complications: none Critical Care Critical Care Time Critical Care Time: No
[2025-09-04 15:30] VITALS: BP 127/83; PULSE 81; O2SAT 98
--- OUTSIDE RECORDS SUMMARY | 2025-09-04 15:52 | XMS_ITS | Clinical Summary ---
Author Organization Healthcare Address [address] [place] [address] Care Team Providers Care Mirror Installer Name Role Phone Sonido Shannon MD Primary Care Provider [phone] Family History 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 Relation Name Comments [...] of Treatment Not on file Care Teams Mirror Installer Relationship Specialty Start Date End Date Sonido Shannon [place] [address] PCP - General 02/02/21
[2025-09-04] MEDS: AMOXICILLIN/CLAVULANATE POTASSIUM 875/125MG TABLET 1 EACH PO (15:59)
[2025-09-04] MEDS: OXYCODONE 5MG IMMEDIATE RELEASE TABLET 5 MG PO (15:59)
[2025-09-04 16:00] VITALS: BP 149/108; PULSE 82; O2SAT 99
[2025-09-04 16:01] VITALS: BP 154/108; PULSE 78; O2SAT 98
[2025-09-04 17:01] VITALS: BP 154/108; PULSE 78; RESP 16; TEMP 36.9; O2SAT 98
== END 2025-09-04 17:02 | disposition home or self-care (01) ==
PROVIDERS: Emergency Provider Student in an Organized Health Care Education/Training Program; PCP Nurse Practitioner
DX: K04.7 Periapical abscess without sinus (principal)
CPT/HCPCS: 64400; 99284

== ENCOUNTER → 2025-09-21 08:03 | Outpatient (CLI) | payer BC, SELFPAY | LOC: SL 08:04 | PROVIDERS: PCP Nurse Practitioner; Visit Provider Specialist | DX: G47.33 Obstructive sleep apnea (adult) (pediatric) (principal) | CPT/HCPCS: G0399 ==